=== PATIENT | male | born 1945 | race Caucasian/White ===

== ENCOUNTER 2017-10-14 16:04 | Inpatient (IN) | payer MEDICARE ==
[2017-10-14 16:52] LABS: HEMATOCRIT 43.8 % (42.0-52.0); HEMOGLOBIN 14.5 gm/dl (14.0-18.0); MEAN CELL VOLUME 87.8 fl (81-97); MEAN CORPUSCULAR HEMOGLOBIN 29.1 pg (27-33); MEAN CORPUSCULAR HGB CONC 33.1 g/dl (32-36); MEAN PLATELET VOLUME 10.4 fl (7.4-10.4); PLATELET COUNT 297 K/uL (130-400); RED BLOOD COUNT 4.99 M/uL (4.40-5.70); RED CELL DISTRIBUTION WIDTH 13.9 % (11.5-14.5); WHITE BLOOD COUNT W/O DIFF 15.7 K/uL (4.2-12.2)
[2017-10-14 16:59] LABS: CREATININE 1.8 mg/dL (0.7-1.2)
--- NOTE | 2017-10-14 18:30 | Emergency Department Record ---
History of Present Illness - General Chief complaint: Extremity Problem Stated complaint: SORE ON BILATERAL LEGS Time Seen by Provider: 10/14/17 16:24 Source: Patient Mode of Arrival: Wheelchair Limitations: No limitations - History of Present Illness Initial comments: pt was sent here from [facility] because of ulcers on his left leg. pt has had it on both legs but has managed to have improvement of the r leg. pt has been treating it with bag balm. he is diabetic. his ulcers are draining MD Complaint: Extremity pain, Extremity swelling Onset/Timin -: Month(s) Location: Bilateral, Lower Leg History of Same: No Severity scale (1-10): 10 Quality: Burning, Sharp Consistency: Constant Improves with: Nothing Worsens with: Palpation, Walking, Weight bearing Associated Symptoms: Denies other symptoms - Related Data Allergies Allergy/AdvReac Type Severity Reaction Status Date / Time silver sulfadiazine Allergy Unverified 10/14/17 15:04 [facility] Travel Screening - Travel/Exposure Within Last 30 Days Have you traveled within the last 30 days?: No Review of Systems Reviewed: No additional complaints except as noted below Constitutional: Reports: As per HPI, Weakness. Denies: Chills, Fever, Malaise, Night sweats, Weight change Eyes: Reports: As per HPI. Denies: Eye discharge, Eye pain, Photophobia, Vision change ENT: Reports: As per HPI. Denies: Congestion, Dental pain, Ear pain, Epistaxis , Hearing loss, Throat pain Respiratory: Reports: As per HPI. Denies: Cough, Dyspnea, Hemoptysis, Stridor, Wheezes Cardiovascular: Reports: As per HPI. Denies: Arrhythmia, Chest pain, Dyspnea on exertion, Edema, Murmurs, Orthopnea, Palpitations, Paroxysmal nocturnal dyspnea, Rheumatic Fever, Syncope Endocrine: Reports: As per HPI. Denies: Fatigue, Heat or cold intolerance, Polydipsia, Polyuria Gastrointestinal: Reports: As per HPI. Denies: Abdominal pain, Constipation, Diarrhea, Hematemesis, Hematochezia, Melena, Nausea, Vomiting Genitourinary: Reports: As per HPI. Denies: Dysuria, Frequency, Hematuria, Incontinence, Retention, Testicular pain, Testicular mass, Urgency Musculoskeletal: Reports: As per HPI. Denies: Arthralgia, Back pain, Gout, Joint swelling, Myalgia, Neck pain Skin: Reports: As per HPI, Lesions, Rash. Denies: Bruising, Change in color, Change in hair/nails, Pruritus Neurological: Reports: As per HPI. Denies: Abnormal gait, Confusion, Headache, Numbness, Paresthesias, Seizure, Tingling, Tremors, Vertigo, Weakness Psychiatric: Reports: As per HPI. Denies: Anxiety, Auditory hallucinations, Depression, Homicidal thoughts, Suicidal thoughts, Visual hallucinations Hematological/Lymphatic: Reports: As per HPI. Denies: Anemia, Blood Clots, Easy bleeding, Easy bruising, Swollen glands Past Medical History - SOCIAL HISTORY Smoking Status: Former smoker Alcohol Use: None Drug Use: None - RESPIRATORY Hx Respiratory Disorders: No - CARDIOVASCULAR Hx Cardio Disorders: Yes Hx Heart Attack: Yes (2006) - NEURO Hx Neuro Disorders: No - GI Hx GI Disorders: No - Hx Genitourinary Disorders: Yes Hx Kidney Stones: Yes - ENDOCRINE Hx Endocrine Disorders: Yes Hx Diabetes: Yes (type 2) - MUSCULOSKELETAL Hx Musculoskeletal Disorders: No - PSYCH Hx Psych Problems: No - HEMATOLOGY/ONCOLOGY Hx Hematology/Oncology Disorders: No Family Medical History Any Significant Family History?: No Physical Exam - General General Appearance: Alert, Oriented x3, Cooperative, Mild distress - Head Head exam: Normal inspection - Eye Eye exam: Normal appearance, PERRL, EOMI Pupils: Normal accommodation - ENT ENT exam: Normal exam, Mucous membranes moist, Normal external ear exam, Normal orophraynx Ear exam: Normal external inspection. negative: External canal tenderness Nasal Exam: Normal inspection. negative: Discharge, Sinus tenderness Mouth exam: Normal external inspection, Tongue normal Teeth exam: Normal inspection. negative: Dental caries Throat exam: Normal inspection. negative: Tonsillar erythema, Tonsillar exudate - Neck Neck exam: Normal inspection, Full ROM. negative: Tenderness - Respiratory Respiratory exam: Normal lung sounds bilaterally. negative: Respiratory distress - Cardiovascular Cardiovascular Exam: Regular rate, Normal rhythm, Normal heart sounds - GI/Abdominal GI/Abdominal exam: Soft, Normal bowel sounds. negative: Tenderness - Rectal Rectal exam: Deferred - exam: Deferred - Extremities Extremities exam: Normal inspection, Full ROM, Normal capillary refill. negative: Tenderness Image of Full Body: 1 - ertythema w small lesions 2 - erythema w circumferential ulcers from the ankle to the midcalf w skin breakdown and oozing - Back Back exam: Reports: Normal inspection, Full ROM. Denies: Muscle spasm, Rash noted, Tenderness - Neurological Neurological exam: Alert, CN II-XII intact, Normal gait, Oriented X3 - Psychiatric Psychiatric exam: Normal affect, Normal mood - Skin Skin exam: Dry, Erythema, Normal color, Rash, Warm Distribution of rash: RLE, LLE Description of rash: Crusting, Discharge, Erythematous, Swelling, Tenderness Course Vital Signs 10/14/17 10/14/17 16:09 17:47 Temperature 98.4 F 98.4 F Pulse Rate [ 64 82 Pulse Ox Probe] Respiratory 24 24 Rate Blood Pressure 104/36 111/51 [Left Arm] Pulse Ox 94 L 98 Medical Decision Making - Lab Data Result diagrams: 10/14/17 16:40 10/14/17 16:40 Lab Results 10/14/17 10/14/17 10/14/17 Range/Units 16:40 16:40 16:40 WBC 15.7 H (4.2-12.2) K/uL RBC 4.99 (4.40-5.70) M/uL Hgb 14.5 (14.0-18.0) gm/dl Hct 43.8 (42.0-52.0) % MCV 87.8 (81-97) fl MCH 29.1 (27-33) pg MCHC 33.1 (32-36) g/dl RDW 13.9 (11.5-14.5) % Plt Count 297 (130-400) K/uL MPV 10.4 (7.4-10.4) fl Neutrophils % 81.0 H (47-80) % Eosinophils % Not Reportable Basophils % Not Reportable Lymphocytes 13.0 L (16-45) % Monocytes 6.0 (0-9) % Sodium 136 (136-145) mmol/L Potassium 4.4 (3.4-4.5) mmol/L Chloride 97 L (98-107) mmol/L Carbon Dioxide 27.0 (22-29) mmol/L Anion Gap 12.0 (7-16) BUN 40 H (8-23) mg/dL Creatinine 1.8 H (0.7-1.2) mg/dL Estimated GFR 40 mL/min Random Glucose 122 H (74-109) mg/dL Calcium 10.5 H (8.8-10.2) mg/dL NT-Pro-B Natriuret Pep 1154.00 H (<125) pg/mL Disposition Disposition: Admit Clinical Impression: Diabetic ulcer of lower leg, Renal insufficiency Disposition: Still a Patient at [facility] Decision to Admit: Admit from ER Decision to Admit Date: 10/14/17 Decision to Admit Time: 18:43 Forms: Patient Portal Access Quality - Quality Measures Quality Measures: N/A - Blood Pressure Screening Does Patient Have Any of the Following: No Blood Pressure Classification: Normal BP Reading Systolic Measurement: 111 Diastolic Measurement: 51 Screening for High Blood Pressure: < Normal BP, F/U Not Required > [[id number]]
[2017-10-14] MEDS ORDERED: CLINDAMYCIN 600MG/50ML PREMIX 600 MG/50 ML BAG IVPB ONE (18:37)
[2017-10-14] MEDS ORDERED: ASPIRIN 81 MG CHEWABLE TABLET PO SCH (19:37)
[2017-10-14] MEDS: CLINDAMYCIN 600MG/50ML PREMIX 600 MG/50 ML BAG IVPB SCH (20:01)
[2017-10-14] MEDS: ACETAMINOPHEN 500 MG TABLET PO PRN (20:46)
[2017-10-14] MEDS ORDERED: METFORMIN 500 MG TABLET PO SCH (22:00)
[2017-10-14] MEDS: HYDROCODONE/APAP 7.5/325MG TABLET PO PRN (22:17)
[2017-10-15] MEDS: CLINDAMYCIN 600MG/50ML PREMIX 600 MG/50 ML BAG IVPB SCH ×3 (03:06→21:11)
[2017-10-15] MEDS: HYDROCODONE/APAP 7.5/325MG TABLET PO PRN ×4 (06:13→22:03)
--- NOTE | 2017-10-15 08:55 | History & Physical ---
History of Present Illness - Date of Service Date of Service for History & Physical: 10/15/17 - History of Present Illness Admitting Diagnosis: diabetic ulcers left leg, renal insufficiency History of Present Illness: Mr. Deleon is a 71 y/o male with diabetes mellitus II who presented to the [facility] with bilateral leg ulcers. The patient says that he has been treating the wounds with bag bomb for the past two months. The patient states that his wound on the right leg was the first one to develop and he tried washing it with soap and water daily which helped but then it got worse. He then noticed that he had a left foot wound which was painful and began weeping fluid about 3 weeks ago. He says that he's painful in both legs and that they have an odor. He says that his glucose is controlled on Metformin at home and he's not seen his PCP in 3 months. On admission the patient's labs showed a mild elevation in white count and xray of the legs showed soft tissue swelling but no evidence of osteomeylitis. He is admitted for IV antibiotics and wound care. Travel Screening - Travel/Exposure Within Last 30 Days Have you traveled within the last 30 days?: No - Travel/Exposure Within Last Year Have you traveled outside the [place] in the last year?: No - Additonal Travel Details Have you been exposed to anyone with a communicable illness?: No - Travel Symptoms Symptom Screening: None Review of Systems Constitutional: Reports: As per HPI, Weakness. Denies: Chills, Fever, Malaise, Night sweats, Weight change Eyes: Reports: As per HPI. Denies: Eye discharge, Eye pain, Photophobia, Vision change ENT: Reports: As per HPI. Denies: Congestion, Dental pain, Ear pain, Epistaxis , Hearing loss, Throat pain Respiratory: Reports: As per HPI. Denies: Cough, Dyspnea, Hemoptysis, Stridor, Wheezes Cardiovascular: Reports: As per HPI. Denies: Arrhythmia, Chest pain, Dyspnea on exertion, Edema, Murmurs, Orthopnea, Palpitations, Paroxysmal nocturnal dyspnea, Rheumatic Fever, Syncope Endocrine: Reports: As per HPI. Denies: Fatigue, Heat or cold intolerance, Polydipsia, Polyuria Gastrointestinal: Reports: As per HPI. Denies: Abdominal pain, Constipation, Diarrhea, Hematemesis, Hematochezia, Melena, Nausea, Vomiting Genitourinary: Reports: As per HPI. Denies: Dysuria, Frequency, Hematuria, Incontinence, Retention, Testicular pain, Testicular mass, Urgency Musculoskeletal: Reports: As per HPI. Denies: Arthralgia, Back pain, Gout, Joint swelling, Myalgia, Neck pain Skin: Reports: As per HPI, Lesions, Rash. Denies: Bruising, Change in color, Change in hair/nails, Pruritus Neurological: Reports: As per HPI. Denies: Abnormal gait, Confusion, Headache, Numbness, Paresthesias, Seizure, Tingling, Tremors, Vertigo, Weakness Psychiatric: Reports: As per HPI. Denies: Anxiety, Auditory hallucinations, Depression, Homicidal thoughts, Suicidal thoughts, Visual hallucinations Hematological/Lymphatic: Reports: As per HPI. Denies: Anemia, Blood Clots, Easy bleeding, Easy bruising, Swollen glands Past Medical History - SOCIAL HISTORY Smoking Status: Former smoker Alcohol Use: None Drug Use: None - RESPIRATORY Hx Respiratory Disorders: No - CARDIOVASCULAR Hx Cardio Disorders: Yes Hx Heart Attack: Yes (2006) - NEURO Hx Neuro Disorders: No - GI Hx GI Disorders: No - Hx Genitourinary Disorders: Yes Hx Kidney Stones: Yes - ENDOCRINE Hx Endocrine Disorders: Yes Hx Diabetes: Yes (type 2) - MUSCULOSKELETAL Hx Musculoskeletal Disorders: No - PSYCH Hx Psych Problems: No - HEMATOLOGY/ONCOLOGY Hx Hematology/Oncology Disorders: No Family Medical History Any Significant Family History?: No H&P Meds/Allergies - Allergies Allergies: Allergies Allergy/AdvReac Type Severity Reaction Status Date / Time silver sulfadiazine Allergy Unverified 10/14/17 15:04 [facility] - Active Medications Active Medications: Current Medications Acetaminophen (Tylenol 500mg Tab) 1,000 mg PO Q6H PRN PRN Reason: PAIN - MILD(1-4)/FEVER Last Admin: 10/14/17 20:46 Dose: 1,000 mg Hydrocodone Bitart/Acetaminophen (Berkshire 7.5mg/325mg) 1 each PO Q4H PRN PRN Reason: PAIN - MILD TO MODERATE (1-7) Last Admin: 10/15/17 06:13 Dose: 1 each Aspirin (Aspirin Chewable) 81 mg PO NOW [facility] Carvedilol (Coreg) 6.25 mg PO DAILY [facility] Furosemide (Lasix) 20 mg PO DAILY [place] Clindamycin Phosphate (Cleocin 600 [id number]) 600 mg in 50 mls @ 100 mls/ hr IVPB Q8H [facility] Last Infusion: 10/15/17 03:39 Dose: Infused Lisinopril (Zestril) 10 mg PO DAILY [facility] Metformin HCl (Glucophage Ir) 500 mg PO BID [facility] Last Admin: 10/14/17 22:18 Dose: Not Given Nystatin (Nystop) 60 gm TP DAILY [facility] Simvastatin (Zocor) 10 mg PO DAILY [facility] Tamsulosin HCl (Flomax) 0.4 mg PO DAILY [facility] Physical Exam - Vital Signs Vital Signs: Vital Signs - Last 24 Hrs Temp Pulse Resp BP Pulse Ox 10/15/17 05:00 99.2 F 80 22 104/47 98 10/14/17 21:00 22 10/14/17 19:35 99.3 F 106 H 24 123/60 95 10/14/17 19:30 78 24 92/66 97 10/14/17 17:47 98.4 F 82 24 111/51 98 10/14/17 16:09 98.4 F 64 24 104/36 94 L - General General Appearance: Alert, Oriented x3, Cooperative, Mild distress Limitations: No limitations - Head Head exam: Normal inspection - Eye Eye exam: Normal appearance, PERRL, EOMI Pupils: Normal accommodation - ENT ENT exam: Normal exam, Mucous membranes moist, Normal external ear exam, Normal orophraynx Ear exam: Normal external inspection. negative: External canal tenderness Nasal Exam: Normal inspection. negative: Discharge, Sinus tenderness Mouth exam: Normal external inspection, Tongue normal Teeth exam: Normal inspection. negative: Dental caries Throat exam: Normal inspection. negative: Tonsillar erythema, Tonsillar exudate - Neck Neck exam: Normal inspection, Full ROM. negative: Tenderness - Respiratory Respiratory exam: Normal lung sounds bilaterally. negative: Respiratory distress - Cardiovascular Cardiovascular Exam: Regular rate, Normal rhythm, Normal heart sounds - GI/Abdominal GI/Abdominal exam: Soft, Normal bowel sounds. negative: Tenderness - Rectal Rectal exam: Deferred - exam: Deferred - Extremities Extremities exam: Normal inspection, Full ROM, Normal capillary refill, Other ( both Left/Right kennedy ulcerative lesions with yellow drainage on the left, dressing in place.). negative: Tenderness Image of Feet: 1 - ulceration and discharge 2 - ulcerative lesion with discharge. - Back Back exam: Reports: Normal inspection, Full ROM. Denies: Muscle spasm, Rash noted, Tenderness - Neurological Neurological exam: Alert, CN II-XII intact, Normal gait, Oriented X3 - Psychiatric Psychiatric exam: Normal affect, Normal mood - Skin Skin exam: Dry, Erythema, Normal color, Rash, Warm Distribution of rash: RLE, LLE Description of rash: Crusting, Discharge, Erythematous, Swelling, Tenderness Results - Labs Result Diagrams: 10/14/17 16:40 10/14/17 16:40 Labs Last 24 Hours: Laboratory Results - last 24 hr 10/14/17 10/14/17 10/14/17 16:40 16:40 16:40 WBC 15.7 H RBC 4.99 Hgb 14.5 Hct 43.8 MCV 87.8 MCH 29.1 MCHC 33.1 RDW 13.9 Plt Count 297 MPV 10.4 Neutrophils % 81.0 H Eosinophils % Not Reportable Basophils % Not Reportable Lymphocytes 13.0 L Monocytes 6.0 Sodium 136 Potassium 4.4 Chloride 97 L Carbon Dioxide 27.0 Anion Gap 12.0 BUN 40 H Creatinine 1.8 H Estimated GFR 40 POC Glucose Random Glucose 122 H Calcium 10.5 H NT-Pro-B Natriuret Pep 1154.00 H 10/14/17 10/14/17 10/15/17 22:00 22:00 07:41 WBC RBC Hgb Hct MCV MCH MCHC RDW Plt Count MPV Neutrophils % Eosinophils % Basophils % Lymphocytes Monocytes Sodium Potassium Chloride Carbon Dioxide Anion Gap BUN Creatinine Estimated GFR POC Glucose Cancelled 159 H 144 H Random Glucose Calcium NT-Pro-B Natriuret Pep VTE H&P Assessment - Risk for VTE Risk for VTE: Yes Risk Level: High Risk Assessment Date: 10/15/17 Risk Assessment Time: 10:07 VTE Orders Placed or Will Be Placed: Yes Plan - Inpatient Certification Inpatient Certification: Admit to inpatient care: Based on my medical assessment, after consideration of patient's risk factors (age, co-morbidities and patient presenting symptoms and acuity), I expect that this patient will remain in the hospital greater than or equal to two midnights and that the services needed warrant inpatient care because: Diabetic foot ulcers Estimated length of stay: 4 days The patient may reasonably be expected to be discharged or transferred to a hospital within 96 hours after admission to [facility]. Post hospital care (if known): Wound care I certify that my determination is in accordance with my understanding of Medicare requirements for reasonable and necessary inpatient services. - Detailed Diagnosis and Plan (1) Diabetic ulcer of lower leg Current Visit: Yes Status: Acute Base Code: E11.622 - TYPE 2 DIABETES MELLITUS WITH OTHER SKIN ULCER; L97.909 - NON-PRS CHRONIC ULC UNSP PRT OF UNSP LOW LEG W UNSP SEVERITY Comment: 10/15/17: - sloughing ulceration of bilaterel legs extending from mid tib/fib to the plantar foot on the left, right tib/fib healing ulcer w/o discharge. - Clindamycin 600mg IV Q8H, [place] 7.5/325mg PO Q4H PRN - Wound care with wet to dry dressings,or hydrogel dressing, elevation/ offloading. - WBCs 15.7, afebrile, glucose 122, blood cx pending. - May need more aggressive wound treatment with hyperbaric therapy if wound slow to heal. (2) Diabetes mellitus, type II Current Visit: Yes Status: Acute Qualifiers: Diabetes mellitus long term care pharmacist insulin use: without long term care pharmacist use Base Code: E11.9 - TYPE 2 DIABETES MELLITUS WITHOUT COMPLICATIONS Comment: 10/15/17: - random glucose 122, POC 159,144 - on Metformin 500mg BID at home, holding due to renal insufficiency. - repeat BMP, Hba1c, sliding scale insulin ordered, POC AcHS, ADA diet. (3) CKD stage 3 due to type 2 diabetes mellitus Current Visit: Yes Status: Acute Base Code: E11.22 - TYPE 2 DIABETES MELLITUS W DIABETIC CHRONIC KIDNEY DISEASE; N18.3 - CHRONIC KIDNEY DISEASE, STAGE 3 (MODERATE) Comment: 10/15/17: - no baseline Bun/Cr. - EGFR 40 , Bun/Cr 40/1.8 - repeat electrolyte panel, hold metformin. - fluid challenge with 1 liter Nacl 0.9% bolus. (4) DVT prophylaxis Current Visit: Yes Status: Acute Base Code: [id number] - Comment: 10/15/17: - pt high risk of DVT - Lovenox 40 mg sq daily (5) Full code status Current Visit: Yes Status: Acute Base Code: Z78.9 - OTHER SPECIFIED HEALTH STATUS Comment: 10/15/17: FULL CODE - Disposition Guarded. Will require several days of wound care and diabetic control
[2017-10-15] MEDS ORDERED: 0.9 % SODIUM CHLORIDE 1000ML 1,000 ML IV ONE (09:11)
[2017-10-15] MEDS ORDERED: FUROSEMIDE 20 MG TABLET PO SCH (10:00)
[2017-10-15] MEDS ORDERED: LISINOPRIL 10 MG TABLET PO SCH (10:00)
[2017-10-15] MEDS ORDERED: CARVEDILOL 6.25 MG PO SCH (10:00)
[2017-10-15] MEDS: CARVEDILOL 12.5 MG TABLET PO SCH (10:37)
[2017-10-15] MEDS: SIMVASTATIN 10MG TABLET PO SCH (10:37)
[2017-10-15] MEDS: TAMSULOSIN HCL 0.4 MG CAP.ER.24H PO SCH (10:37)
[2017-10-15] MEDS: NYSTATIN 15 GM POWDER TP SCH (10:38)
[2017-10-15] MEDS: ENOXAPARIN 40 MG/0.4 ML SYR SQ SCH (10:45)
[2017-10-15] MEDS: NOVOLOG FLEXPEN (INSULIN ASPART) 100 UNITS/ML SQ SCH ×2 (11:46→12:30)
[2017-10-15] MEDS: ACETAMINOPHEN 500 MG TABLET PO PRN (15:28)
[2017-10-16] MEDS: CLINDAMYCIN 600MG/50ML PREMIX 600 MG/50 ML BAG IVPB SCH ×3 (04:20→21:30)
[2017-10-16 06:22] LABS: HEMATOCRIT 36.7 % (42.0-52.0); HEMOGLOBIN 11.4 gm/dl (14.0-18.0); MEAN CELL VOLUME 90.4 fl (81-97); MEAN CORPUSCULAR HGB CONC 31.1 g/dl (32-36); MEAN PLATELET VOLUME 10.4 fl (7.4-10.4); PLATELET COUNT 210 K/uL (130-400); RED BLOOD COUNT 4.06 M/uL (4.40-5.70); WHITE BLOOD COUNT W/O DIFF 13.5 K/uL (4.2-12.2)
[2017-10-16 06:41] LABS: CREATININE 2.6 mg/dL (0.7-1.2)
[2017-10-16] MEDS: HYDROCODONE/APAP 7.5/325MG TABLET PO PRN (08:32)
[2017-10-16] MEDS: ACETAMINOPHEN 500 MG TABLET PO PRN (08:33)
[2017-10-16] MEDS: NOVOLOG FLEXPEN (INSULIN ASPART) 100 UNITS/ML SQ SCH ×3 (08:44→17:48)
[2017-10-16] MEDS ORDERED: 0.9 % SODIUM CHLORIDE 1000ML 1,000 ML IV ONE (08:49)
--- NOTE | 2017-10-16 09:05 | Physician Progress Note ---
Subjective - Date Date of Physician Progress Note: 10/16/17 - Subjective Subjective Comment: The patient says his left leg is more painful this morning. He says it has been draining profusely but feels like it hasn't changed much. He is alert, awake and oriented x 3. Severity scale (1-10): 7 Quality: Aching Consistency: Constant Objective - Vital Signs Vital Signs: Vital Signs - Last 24 Hrs Temp Pulse Resp BP Pulse Ox 10/16/17 08:15 100.2 F H 88 20 87/51 94 L 10/16/17 05:00 99.5 F 87 22 86/49 95 10/15/17 21:00 99.3 F 76 22 86/49 95 10/15/17 20:35 82 20 10/15/17 13:00 98.4 F 80 20 107/63 98 10/15/17 09:00 80 22 - General General Appearance: Alert, Oriented x3, Cooperative, Mild distress Limitations: No limitations - Head Head exam: Normal inspection - Eye Eye exam: Normal appearance, PERRL, EOMI Pupils: Normal accommodation - ENT ENT exam: Normal exam, Mucous membranes moist, Normal external ear exam, Normal orophraynx Ear exam: Normal external inspection. negative: External canal tenderness Nasal Exam: Normal inspection. negative: Discharge, Sinus tenderness Mouth exam: Normal external inspection, Tongue normal Teeth exam: Normal inspection. negative: Dental caries Throat exam: Normal inspection. negative: Tonsillar erythema, Tonsillar exudate - Neck Neck exam: Normal inspection, Full ROM. negative: Tenderness - Respiratory Respiratory exam: Normal lung sounds bilaterally. negative: Respiratory distress - Cardiovascular Cardiovascular Exam: Regular rate, Normal rhythm, Normal heart sounds Peripheral Pulses: 3+: Radial (R), Radial (L) - GI/Abdominal GI/Abdominal exam: Soft, Normal bowel sounds. negative: Tenderness - Rectal Rectal exam: Deferred - exam: Deferred - Extremities Extremities exam: Normal inspection, Full ROM, Normal capillary refill, Other ( both Left/Right kennedy ulcerative lesions with yellow drainage on the left, dressing in place. Left leg wound is curcumfrential). negative: Tenderness - Back Back exam: Reports: Normal inspection, Full ROM. Denies: Muscle spasm, Rash noted, Tenderness - Neurological Neurological exam: Alert, CN II-XII intact, Normal gait, Oriented X3 - Psychiatric Psychiatric exam: Normal affect, Normal mood - Skin Skin exam: Dry, Erythema, Normal color, Rash, Warm Distribution of rash: RLE, LLE Description of rash: Crusting, Discharge, Erythematous, Swelling, Tenderness Assessment and Plan - Assessment and Plan (1) Hypotension Current Visit: Yes Status: Acute Base Code: I95.9 - HYPOTENSION, UNSPECIFIED Comment: 10/16/17: - BP 87/51, HR 88 - hold Coreg, Lasix and Lisinopril. - bolus 0.9% over 1 hour, continuous fluids @ 100mL/hr (2) Diabetic ulcer of lower leg Current Visit: Yes Status: Acute Base Code: E11.622 - TYPE 2 DIABETES MELLITUS WITH OTHER SKIN ULCER; L97.909 - NON-PRS CHRONIC ULC UNSP PRT OF UNSP LOW LEG W UNSP SEVERITY Comment: 10/16/17: - sloughing ulceration of bilaterel legs extending from mid tib/fib to the plantar foot on the left, right tib/fib healing ulcer w/o discharge. - Clindamycin 600mg IV Q8H Cipro 400mg IV Q12H, [place] 10/325mg PO Q4H PRN - Wound care with wet to dry dressings,or hydrogel dressing, elevation/ offloading. - WBCs 15.7-->13.5, febrile 100.2, glucose 134, blood cx pending. - May need more aggressive wound treatment with hyperbaric therapy if wound slow to heal. (3) Diabetes mellitus, type II Current Visit: Yes Status: Acute Qualifiers: Diabetes mellitus superintendent marine oil terminal insulin use: without [place] [facility] use Base Code: E11.9 - TYPE 2 DIABETES MELLITUS WITHOUT COMPLICATIONS Comment: 10/16/17: - random glucose 134, - on Metformin 500mg BID at home, holding due to renal insufficiency. - repeat BMP, Hba1c, sliding scale insulin ordered, POC AcHS, ADA diet. (4) CKD stage 3 due to type 2 diabetes mellitus Current Visit: Yes Status: Acute Base Code: E11.22 - TYPE 2 DIABETES MELLITUS W DIABETIC CHRONIC KIDNEY DISEASE; N18.3 - CHRONIC KIDNEY DISEASE, STAGE 3 (MODERATE) Comment: 10/16/17: - no baseline Bun/Cr. - EGFR 40 , Bun/Cr 40/1.8 --> 61/2.6 - repeat electrolyte panel, hold metformin, and Lasix 20mg. - bolus 1 liter Nacl 0.9% and continuous fluids: Nacl 0.9% @ 100mL/hr - repeat BMP at 5pm and in the morning. (5) DVT prophylaxis Current Visit: Yes Status: Acute Base Code: [id number] - Comment: 10/16/17: - pt high risk of DVT - Lovenox 40 mg sq daily (6) Full code status Current Visit: Yes Status: Acute Base Code: Z78.9 - OTHER SPECIFIED HEALTH STATUS Comment: 10/16/17: FULL CODE - Disposition Disposition: Guarded. Will require several days of wound care and diabetic control Results - Labs Result Diagrams: 10/16/17 06:05 10/16/17 06:05 Labs Last 24 Hours: Laboratory Results - last 24 hr 10/15/17 10/16/17 10/16/17 21:30 06:05 06:05 WBC 13.5 H RBC 4.06 L Hgb 11.4 L Hct 36.7 L MCV 90.4 MCH 28.0 MCHC 31.1 L RDW 14.0 Plt Count 210 MPV 10.4 Neutrophils % 76.0 Band Neutrophils % 0.0 Eosinophils % Not Reportable Basophils % Not Reportable Lymphocytes 12.0 L Monocytes 12.0 H Basophils 0.0 Eosinophil Count 0.0 Sodium 134 L Potassium 4.3 Chloride 96 L Carbon Dioxide 24.0 Anion Gap 14.0 BUN 61 H Creatinine 2.6 H Estimated GFR 26 POC Glucose 144 H Random Glucose 134 H Hemoglobin A1c Calcium 8.9 Triglycerides 72 Cholesterol 78 LDL Cholesterol [place] 36.0 VLDL Cholesterol 14 HDL Cholesterol 38 L 10/16/17 06:05 WBC RBC Hgb Hct MCV MCH MCHC RDW Plt Count MPV Neutrophils % Band Neutrophils % Eosinophils % Basophils % Lymphocytes Monocytes Basophils Eosinophil Count Sodium Potassium Chloride Carbon Dioxide Anion Gap BUN Creatinine Estimated GFR POC Glucose Random Glucose Hemoglobin A1c 7.40 H Calcium Triglycerides Cholesterol LDL Cholesterol [place] VLDL Cholesterol HDL Cholesterol DVT/PE Assessment - Risk for VTE Risk for VTE: No Risk Level: High Risk Assessment Date: 10/15/17 Risk Assessment Time: 10:07 VTE Orders Placed or Will Be Placed: Yes - Active Medicaitons Current Medications: Current Medications Acetaminophen (Tylenol 500mg Tab) 1,000 mg PO Q6H PRN PRN Reason: PAIN - MILD(1-4)/FEVER Last Admin: 10/16/17 08:33 Dose: 500 mg Hydrocodone Bitart/Acetaminophen ([place] 7.5mg/325mg) 1 each PO Q4H PRN PRN Reason: PAIN - MILD TO MODERATE (1-7) Last Admin: 10/16/17 08:32 Dose: 1 each Aspirin (Aspirin Chewable) 81 mg PO NOW [facility] Carvedilol (Coreg) 6.25 mg PO DAILY [facility] Last Admin: 10/15/17 10:37 Dose: 6.25 mg Enoxaparin Sodium (Lovenox) 40 mg SQ DAILY [facility] Last Admin: 10/15/17 10:45 Dose: 40 mg Furosemide (Lasix) 20 mg PO DAILY [facility] Last Admin: 10/15/17 10:36 Dose: 20 mg Clindamycin Phosphate (Cleocin 600 [id number]) 600 mg in 50 mls @ 100 mls/ hr IVPB Q8H [facility] Last Admin: 10/16/17 04:20 Dose: 100 mls/hr Sodium Chloride () 1,000 mls @ 500 mls/hr IV .Q2H ONE Stop: 10/16/17 10:48 Insulin Aspart (Novolog Flexpen) 1 unit SQ TIDINS [facility]; Protocol Last Admin: 10/16/17 08:44 Dose: 4 unit Lisinopril (Zestril) 10 mg PO DAILY [facility] Last Admin: 10/15/17 10:36 Dose: 10 mg Nystatin (Nystop) 60 gm TP DAILY [facility] Last Admin: 10/15/17 10:38 Dose: 60 gm Simvastatin (Zocor) 10 mg PO DAILY [facility] Last Admin: 10/15/17 10:37 Dose: 10 mg Tamsulosin HCl (Flomax) 0.4 mg PO DAILY [facility] Last Admin: 10/15/17 10:37 Dose: 0.4 mg AMI Plan - Labs Result Diagrams: 10/16/17 06:05 10/16/17 06:05
--- NOTE | 2017-10-16 10:08 | RADIOLOGY REPORT ---
EXAM: LOWER LEG, LEFT HISTORY: SWELLING AND REDNESS LEFT LEG, INFECTION. TECHNIQUE: AP and lateral views of the left lower leg. COMPARISON: None. ENCOUNTER: Nonapplicable. FINDINGS: There is mild to moderate degenerative arthritis at the left knee. Soft tissue swelling is seen along the anterior aspect of the calf. No definite fracture or destructive lesion seen involving the left lower leg. IMPRESSION: 1. DEGENERATIVE ARTHRITIS LEFT KNEE. 2. SOFT TISSUE SWELLING IN THE CALF, PARTICULARLY ANTERIORLY. 3. NO DESTRUCTIVE LESION OF THE LEFT LOWER LEG IDENTIFIED. JOB [facility]BER: [id number] [facility]
--- NOTE | 2017-10-16 10:12 | RADIOLOGY REPORT ---
EXAM: FOOT, LEFT 2 VIEWS HISTORY: INFECTION, REDNESS AND SWELLING LEFT LEG INTO FOOT FOR TWO MONTHS. TECHNIQUE: AP and lateral views left foot. COMPARISON: None. FINDINGS: Diffuse soft tissue swelling is seen, particularly along the dorsal aspect of the left foot. Advanced degenerative change at the first MTP joint. Second through fifth toes are held in relative dorsiflexion at the MTP joints. Small plantar calcaneal spur. No definite destructive lesion seen in the left foot. IMPRESSION: 1. ADVANCED DEGENERATIVE CHANGE AT THE FIRST MTP JOINT. 2. SMALL PLANTAR CALCANEAL SPUR. 3. PROMINENT SOFT TISSUE SWELLING IN THE LEFT FOOT, PARTICULARLY ALONG THE DORSAL ASPECT. JOB NUMBER: [id number] [facility]
[2017-10-16] MEDS ORDERED: CIPROFLOXACIN LACTATE/D5W 400 MG/200 ML BAG IVPB SCH (10:45)
[2017-10-16] MEDS: HYDROCODONE/APAP 10/325 TABLET PO PRN ×2 (10:58→17:50)
[2017-10-16] MEDS: ENOXAPARIN 40 MG/0.4 ML SYR SQ SCH (11:28)
[2017-10-16] MEDS: TAMSULOSIN HCL 0.4 MG CAP.ER.24H PO SCH (11:29)
[2017-10-16] MEDS: SIMVASTATIN 10MG TABLET PO SCH (11:29)
[2017-10-16] MEDS: CIPROFLOXACIN LACTATE/D5W 400 MG/200 ML BAG IVPB SCH ×2 (11:30→22:35)
[2017-10-16] MEDS: NYSTATIN 15 GM POWDER TP SCH (11:40)
[2017-10-16 17:23] LABS: CREATININE 2.6 mg/dL (0.7-1.2)
[2017-10-17] MEDS: CLINDAMYCIN 600MG/50ML PREMIX 600 MG/50 ML BAG IVPB SCH ×2 (03:50→14:06)
[2017-10-17] MEDS: HYDROCODONE/APAP 10/325 TABLET PO PRN ×3 (03:50→16:02)
[2017-10-17 07:17] LABS: HEMATOCRIT 37.5 % (42.0-52.0); MEAN CELL VOLUME 89.5 fl (81-97); MEAN CORPUSCULAR HEMOGLOBIN 28.6 pg (27-33); MEAN PLATELET VOLUME 11.1 fl (7.4-10.4); PLATELET COUNT 214 K/uL (130-400); RED BLOOD COUNT 4.19 M/uL (4.40-5.70); WHITE BLOOD COUNT W/O DIFF 13.3 K/uL (4.2-12.2)
[2017-10-17 07:36] LABS: CREATININE 2.2 mg/dL (0.7-1.2)
[2017-10-17 07:53] LABS: PLATELET ESTIMATE NORMAL (NORMAL)
[2017-10-17] MEDS: NOVOLOG FLEXPEN (INSULIN ASPART) 100 UNITS/ML SQ SCH ×2 (09:27→14:08)
[2017-10-17] MEDS: ENOXAPARIN 40 MG/0.4 ML SYR SQ SCH (10:50)
[2017-10-17] MEDS: CARVEDILOL 12.5 MG TABLET PO SCH ×2 (10:51→11:05)
[2017-10-17] MEDS: TAMSULOSIN HCL 0.4 MG CAP.ER.24H PO SCH (10:53)
[2017-10-17] MEDS: NYSTATIN 15 GM POWDER TP SCH (10:55)
[2017-10-17] MEDS: SIMVASTATIN 10MG TABLET PO SCH (10:55)
--- NOTE | 2017-10-17 10:58 | Discharge Summary ---
Providers Discharge Summary Date: 10/17/17 Date of admission: 10/14/17 19:32 Attending physician: LISETTE THOMSON Primary care physician: Halima Cervantes Consults: Consult Orders 10/17/17 06:55 Consult NOW Consulting Provider: Zaki Castaneda Physician Instructions: Reason For Exam: DM ulcer debridement Physical Exam - Vital Signs Vital Signs: Vital Signs - Last 24 Hrs Temp Pulse Resp BP Pulse Ox 10/17/17 04:23 98.6 F 80 20 86/62 96 10/16/17 21:00 20 10/16/17 20:00 99.0 F 84 22 100/55 96 10/16/17 16:00 99.0 F 85 20 91/56 95 - General General Appearance: Alert, Oriented x3, Cooperative, Mild distress Limitations: No limitations - Head Head exam: Normal inspection - Eye Eye exam: Normal appearance, PERRL, EOMI Pupils: Normal accommodation - ENT ENT exam: Normal exam, Mucous membranes moist, Normal external ear exam, Normal orophraynx Ear exam: Normal external inspection. negative: External canal tenderness Nasal Exam: Normal inspection. negative: Discharge, Sinus tenderness Mouth exam: Normal external inspection, Tongue normal Teeth exam: Normal inspection. negative: Dental caries Throat exam: Normal inspection. negative: Tonsillar erythema, Tonsillar exudate - Neck Neck exam: Normal inspection, Full ROM. negative: Tenderness - Respiratory Respiratory exam: Normal lung sounds bilaterally. negative: Respiratory distress - Cardiovascular Cardiovascular Exam: Regular rate, Normal rhythm, Normal heart sounds Peripheral Pulses: 3+: Radial (R), Radial (L) - GI/Abdominal GI/Abdominal exam: Soft, Normal bowel sounds. negative: Tenderness - Rectal Rectal exam: Deferred - exam: Deferred - Extremities Extremities exam: Normal inspection, Full ROM, Normal capillary refill, Other ( both Left/Right kennedy ulcerative lesions with yellow drainage on the left, dressing in place. Left leg wound is curcumfrential). negative: Tenderness - Back Back exam: Reports: Normal inspection, Full ROM. Denies: Muscle spasm, Rash noted, Tenderness - Neurological Neurological exam: Alert, CN II-XII intact, Normal gait, Oriented X3 - Psychiatric Psychiatric exam: Normal affect, Normal mood - Skin Skin exam: Dry, Erythema, Normal color, Rash, Warm Distribution of rash: RLE, LLE Description of rash: Crusting, Discharge, Erythematous, Swelling, Tenderness Hospitalization - Hospitalization Admission Diagnosis: diabetic ulcers left leg, renal insufficiency - Problem List/Discharge Diagnosis (1) Hypotension Current Visit: Yes Status: Acute Base Code: I95.9 - HYPOTENSION, UNSPECIFIED Comment: 10/17/17: - BP 86/62, HR 80 - hold Coreg, Lasix and Lisinopril. - bolused 1 liter nacl 0.9%, continuous fluids @ 100mL/hr (2) Diabetic ulcer of lower leg Current Visit: Yes Status: Acute Base Code: E11.622 - TYPE 2 DIABETES MELLITUS WITH OTHER SKIN ULCER; L97.909 - NON-PRS CHRONIC ULC UNSP PRT OF UNSP LOW LEG W UNSP SEVERITY Comment: 10/17/17: - sloughing ulceration of bilaterel legs extending from mid tib/fib to the plantar foot on the left, right tib/fib healing ulcer w/o discharge. - Clindamycin 600mg IV Q8H Cipro 400mg IV Q12H, [place] 10/325mg PO Q4H PRN - Wound care with wet to dry dressings,or hydrogel dressing, elevation/ offloading. - WBCs 15.7-->13.5, febrile 100.2, glucose 134, blood cx: gram + cocci in chains , wound cx: mod gram negative rods. - May need more aggressive wound treatment with hyperbaric therapy if wound slow to heal. discussed with Gen Surg this morning and recommended debridement of wound and transfer to [facility] for multidisciplinary wound care management. 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 Hba1c 7.4% - on Metformin 500mg BID at home, holding due to renal insufficiency. -, sliding scale insulin ordered, POC AcHS, ADA diet. (4) CKD stage 3 due to type 2 diabetes mellitus Current Visit: Yes Status: Acute Base Code: E11.22 - TYPE 2 DIABETES MELLITUS W DIABETIC CHRONIC KIDNEY DISEASE; N18.3 - CHRONIC KIDNEY DISEASE, STAGE 3 (MODERATE) Comment: 10/17/17: - no baseline Bun/Cr. - EGFR 40 , Bun/Cr 40/1.8 --> 61/2.6 --> 58/2.2 - repeat electrolyte panel, hold metformin, and Lasix 20mg. - bolus 1 liter Nacl 0.9% and continuous fluids: Nacl 0.9% @ 100mL/hr (5) DVT prophylaxis Current Visit: Yes Status: Acute Base Code: [id number] - Comment: 10/17/17: - pt high risk of DVT - Lovenox 40 mg sq daily (6) Full code status Current Visit: Yes Status: Acute Base Code: Z78.9 - OTHER SPECIFIED HEALTH STATUS Comment: 10/17/17: FULL CODE - Disposition Guarded. Will require several days of wound care and diabetic control - Hospitalization Course Disposition: Acute Care Hospital Transfer Hospital Course: Mr. Deleon is a 71 y/o male with diabetes mellitus II who presented to the [facility] with bilateral leg ulcers. The patient says that he has been treating the wounds with "Bag Leona" ointment for the past two months. The patient states that his wound on the right leg was the first one to develop and he tried washing it with soap and water daily which helped but then it got worse. He then noticed that he had a left foot wound which was painful and began weeping fluid about 3 weeks ago. He says that he's painful in both legs and that they have an odor. He says that his glucose is controlled on Metformin at home and he 's not seen his PCP in 3 months. On admission the patient's labs showed a mild elevation in white count and xray of the legs showed soft tissue swelling but no evidence of osteomeylitis. He is admitted for IV antibiotics and wound care. 10/17: The patient is awake and alert complaining of leg pain bilaterally with movement. On 10/16/17 the patient became febrile with temp 100.8, and hypotensive. Blood cultures grew gram + cocci in chains and wound culture moderate gram (-) rods. Ciprofloxacin 400mg BID was added to his Clindamycin 600mg Q8H for aerobic gram negative coverage. Coverage with Vancomycin not given due to worsening kidney function. Surgery was consulted for debridement of the wound and recommended transfer for debridement and multidisciplinary wound care. Procedures: Imaging and X-Rays 10/14/17 16:32 FOOT, LEFT 2 VIEWS [RAD] Stat LOWER LEG, LEFT [RAD] Stat Abnormal Labs: Abnormal Lab Results 10/14/17 10/14/17 10/14/17 Range/Units 16:40 16:40 16:40 WBC 15.7 H (4.2-12.2) K/uL RBC (4.40-5.70) M/uL Hgb (14.0-18.0) gm/dl Hct (42.0-52.0) % MCHC (32-36) g/dl MPV (7.4-10.4) fl Neutrophils % 81.0 H (47-80) % Lymphocytes 13.0 L (16-45) % Monocytes (0-9) % Sodium (136-145) mmol/L Potassium (3.4-4.5) mmol/L Chloride 97 L (98-107) mmol/L Carbon Dioxide (22-29) mmol/L Anion Gap (7-16) BUN 40 H (8-23) mg/dL Creatinine 1.8 H (0.7-1.2) mg/dL POC Glucose (70-110) mg/dL Random Glucose 122 H (74-109) mg/dL Hemoglobin A1c (4.0-6.00) % Calcium 10.5 H (8.8-10.2) mg/dL NT-Pro-B Natriuret Pep 1154.00 H (<125) pg/mL HDL Cholesterol (40-60) mg/dL 10/14/17 10/15/17 10/15/17 Range/Units 22:00 07:41 21:30 WBC (4.2-12.2) K/uL RBC (4.40-5.70) M/uL Hgb (14.0-18.0) gm/dl Hct (42.0-52.0) % MCHC (32-36) g/dl MPV (7.4-10.4) fl Neutrophils % (47-80) % Lymphocytes (16-45) % Monocytes (0-9) % Sodium (136-145) mmol/L Potassium (3.4-4.5) mmol/L Chloride (98-107) mmol/L Carbon Dioxide (22-29) mmol/L Anion Gap (7-16) BUN (8-23) mg/dL Creatinine (0.7-1.2) mg/dL POC Glucose 159 H 144 H 144 H (70-110) mg/dL Random Glucose (74-109) mg/dL Hemoglobin A1c (4.0-6.00) % Calcium (8.8-10.2) mg/dL NT-Pro-B Natriuret Pep (<125) pg/mL HDL Cholesterol (40-60) mg/dL 10/16/17 10/16/17 10/16/17 Range/Units 06:05 06:05 06:05 WBC 13.5 H (4.2-12.2) K/uL RBC 4.06 L (4.40-5.70) M/uL Hgb 11.4 L (14.0-18.0) gm/dl Hct 36.7 L (42.0-52.0) % MCHC 31.1 L (32-36) g/dl MPV (7.4-10.4) fl Neutrophils % (47-80) % Lymphocytes 12.0 L (16-45) % Monocytes 12.0 H (0-9) % Sodium 134 L (136-145) mmol/L Potassium (3.4-4.5) mmol/L Chloride 96 L (98-107) mmol/L Carbon Dioxide (22-29) mmol/L Anion Gap (7-16) BUN 61 H (8-23) mg/dL Creatinine 2.6 H (0.7-1.2) mg/dL POC Glucose (70-110) mg/dL Random Glucose 134 H (74-109) mg/dL Hemoglobin A1c 7.40 H (4.0-6.00) % Calcium (8.8-10.2) mg/dL NT-Pro-B Natriuret Pep (<125) pg/mL HDL Cholesterol 38 L (40-60) mg/dL 10/16/17 10/16/17 10/16/17 Range/Units 11:50 17:00 17:00 WBC (4.2-12.2) K/uL RBC (4.40-5.70) M/uL Hgb (14.0-18.0) gm/dl Hct (42.0-52.0) % MCHC (32-36) g/dl MPV (7.4-10.4) fl Neutrophils % (47-80) % Lymphocytes (16-45) % Monocytes (0-9) % Sodium 132 L (136-145) mmol/L Potassium (3.4-4.5) mmol/L Chloride 93 L (98-107) mmol/L Carbon Dioxide (22-29) mmol/L Anion Gap 17.0 H (7-16) BUN 62 H (8-23) mg/dL Creatinine 2.6 H (0.7-1.2) mg/dL POC Glucose 180 H 126 H (70-110) mg/dL Random Glucose 126 H (74-109) mg/dL Hemoglobin A1c (4.0-6.00) % Calcium (8.8-10.2) mg/dL NT-Pro-B Natriuret Pep (<125) pg/mL HDL Cholesterol (40-60) mg/dL 10/16/17 10/17/17 10/17/17 Range/Units 22:00 06:34 06:34 WBC 13.3 H (4.2-12.2) K/uL RBC 4.19 L (4.40-5.70) M/uL Hgb 12.0 L (14.0-18.0) gm/dl Hct 37.5 L (42.0-52.0) % MCHC (32-36) g/dl MPV 11.1 H (7.4-10.4) fl Neutrophils % (47-80) % Lymphocytes 14.0 L (16-45) % Monocytes (0-9) % Sodium 134 L (136-145) mmol/L Potassium 4.6 H (3.4-4.5) mmol/L Chloride (98-107) mmol/L Carbon Dioxide 21.0 L (22-29) mmol/L Anion Gap (7-16) BUN 58 H (8-23) mg/dL Creatinine 2.2 H (0.7-1.2) mg/dL POC Glucose 178 H (70-110) mg/dL Random Glucose 145 H (74-109) mg/dL Hemoglobin A1c (4.0-6.00) % Calcium (8.8-10.2) mg/dL NT-Pro-B Natriuret Pep (<125) pg/mL HDL Cholesterol (40-60) mg/dL Condition at Discharge: (2) Stable Discharge Diagnosis: Diabetic foot ulcers Discharge Medications - Discharge Medications Home Medications: Ambulatory Orders Aspirin 81 mg PO NOW #1 tab.chew 10/14/17 [Last Taken Unknown] Carvedilol 6.25 mg PO DAILY tab 10/14/17 [Last Taken Unknown] Furosemide 20 mg PO DAILY tab 10/14/17 [Last Taken Unknown] Lisinopril 10 mg PO DAILY tab 10/14/17 [Last Taken Unknown] Nystatin [Nyamyc] 60 gm TP DAILY 10/14/17 [Last Taken Unknown] Simvastatin 10 mg PO DAILY tab 10/14/17 [Last Taken Unknown] Tamsulosin HCl 0.4 mg PO DAILY cap 10/14/17 [Last Taken Unknown] Discharge Plan - Discharge Instructions Activity at Discharge: Resume Usual Activities As Tolerated Diet at Discharge: Diabetic Diet, Low Fat, Low Cholesterol Dressing Change: Daily Additional Instructions: Transfer to [facility] for further management of wounds. Discussed with Internal medicine team at [facility] (Dr. García) and they have accepted patient for further management. I talked this over with the patient and he is agreeable to being transferred today. Quality Measures - Quality Measures Quality Measures: Advance Directives, Documentation of Current Medications in Medical Record, Elder Maltreatment Screen and Follow-Up Plan, Screening for High Blood Pressure and F/U Documented - Current Medications Quality Measure: Measure #130: Documentation of Current Medications Documentation of Current Medications: <Current Medications Documented/Reviewed> [[id number]] - Blood Pressure Screening Quality Measure: Screening for High Blood Pressure and Follow-Up Documented Does Patient Have Any of the Following: Active Dx of HTN Blood Pressure Classification: Normal BP Reading Systolic Measurement: 86 Diastolic Measurement: 62 Screening for High Blood Pressure: Patient Exclusion, Hx of HTN [G9744] - Advance Directives Quality Measure: Measure #47: Care Plan Advance Directives Established: No Advance Directives Information Provided To Patient: No Advance Directives on File: No Living Will: No Power of Temperer: No Advance Care Planning: <Care Plan/Decision Maker Documented; Discussed & Documented> [9246F] - Elder Abuse Suspicion Index Screening: Elder Abuse Suspicion Index Screening Rely on people for bathing, dressing, shopping, banking, etc: No Prevented from getting food, clothes, medication, etc: No Made to feel shamed or threatened by someone: No Forced to sign papers or use money against will: No Feel afraid, touched in ways not wanted or hurt physically: No Poor eye contact, withdrawn, malnourished, cuts or bruises: No Screening Result: Negative result EASI Reference Information: Gu[place]o CEJA, Sanjiv C, Stacy D, Zulma Parker.Development and validation of a tool to assist physicians identification of elder abuse: The Elder Abuse Suspicion Index (EASI ). Journal of Elder Abuse and Neglect, 2008; 20 (3): 276-300. - Elder Maltreatment Screen Quality Measures: Elder Maltreatment Screen and Follow-Up Plan Elder Maltreatment Screen: <Negative, No Follow-Up Plan Required> [[id number]]
[2017-10-17] MEDS: CIPROFLOXACIN LACTATE/D5W 400 MG/200 ML BAG IVPB SCH (12:15)
[2017-10-17] MEDS ORDERED: 0.9 % SODIUM CHLORIDE 1000ML 1,000 ML IV PRN (14:48)
== END 2017-10-17 16:15 | disposition short-term general hospital (02) ==
LOC: ER 16:04 → MEDSURG 19:32
PROVIDERS: ADMIT Internal Medicine; ATTEND Internal Medicine
DX: E11.622 Type 2 diabetes mellitus with other skin ulcer (principal); L97.909 Non-pressure chronic ulcer of unspecified part of unspecified lower leg with unspecified severity; I95.9 Hypotension, unspecified; E11.22 Type 2 diabetes mellitus with diabetic chronic kidney disease; E11.9 Type 2 diabetes mellitus without complications; N18.3 Chronic kidney disease, stage 3 (moderate); I25.2 Old myocardial infarction; Z87.442 Personal history of urinary calculi; Z87.891 Personal history of nicotine dependence
CPT/HCPCS: 36416; 80048; 80061; 82948; 83036; 83880; 85027; 99223; 99233; 99239; 99285; J1650; J7030

== ENCOUNTER 2017-10-26 13:27 | Inpatient (IN) | payer MEDICARE ==
[2017-10-26] MEDS ORDERED: HYDROCODONE/APAP 7.5/325MG TABLET PO PRN (16:02)
--- NOTE | 2017-10-26 17:26 | History & Physical ---
History of Present Illness - Date of Service Date of Service for History & Physical: 10/26/17 - History of Present Illness Admitting Diagnosis: Deconditioning due to MRSA infection of wound, chronic kidney disease, diabetes History of Present Illness: PMHx: CKD, DMII, CAD, Nephrolithiasis, HLD, former heavy smoker (4PPD) Pt transferred today to [facility] from [facility] after being treated for diabetic wounds. He initially presented to [facility] with severe diabetic wounds roughly 1.5 weeks ago after trying to treat them on his own for 2 months. The pt was started on IV cipro and clinda without improvement and needed wound care so he was transferred to [facility] for further treatment and evaluation. There, he was started on vanco and meropenem. Cx was + for MRSA and Alcaligenes Faecalis. His WBC declined with treatment and his wounds improved. ID saw the pt and recommended 3 weeks of PO xyvox and levaquin for continued treatment. He did have some mild DAVID which resolved with stopping nephrotoxic drugs. He also did present with increased BNP and was started on lasix. Lisinopril was D/C'd. Today he states that his wounds have improved significantly and doesn't have any complaints. Travel Screening - Travel/Exposure Within Last 30 Days Have you traveled within the last 30 days?: No - Travel/Exposure Within Last Year Have you traveled outside the [place] in the last year?: No - Additonal Travel Details Have you been exposed to anyone with a communicable illness?: No - Travel Symptoms Symptom Screening: None Review of Systems Constitutional: Denies: Chills, Fever, Malaise, Weakness Eyes: Denies: Vision change ENT: Denies: Congestion, Ear pain, Throat pain Respiratory: Denies: Cough, Dyspnea, Wheezes Cardiovascular: Reports: Edema (in legs ). Denies: Chest pain, Dyspnea on exertion, Palpitations Endocrine: Denies: Fatigue Gastrointestinal: Denies: Abdominal pain, Constipation, Diarrhea, Melena, Nausea , Vomiting Genitourinary: Denies: Discharge, Dysuria, Frequency, Hematuria Musculoskeletal: Denies: Arthralgia Skin: Reports: Change in color, Lesions Neurological: Denies: Abnormal gait, Confusion, Headache, Weakness Psychiatric: Denies: Anxiety, Depression Past Medical History - SOCIAL HISTORY Smoking Status: Former smoker Alcohol Use: None Drug Use: None - RESPIRATORY Hx Respiratory Disorders: No - CARDIOVASCULAR Hx Cardio Disorders: Yes Hx Heart Attack: Yes (2006) - NEURO Hx Neuro Disorders: No - GI Hx GI Disorders: No - Hx Genitourinary Disorders: Yes Hx Kidney Stones: Yes - ENDOCRINE Hx Endocrine Disorders: Yes Hx Diabetes: Yes (type 2) - MUSCULOSKELETAL Hx Musculoskeletal Disorders: No - PSYCH Hx Psych Problems: No - HEMATOLOGY/ONCOLOGY Hx Hematology/Oncology Disorders: No H&P Meds/Allergies - Allergies Allergies: Allergies Allergy/AdvReac Type Severity Reaction Status Date / Time silver sulfadiazine Allergy Unverified 10/14/17 15:04 [From Silvadene] - Active Medications Active Medications: Current Medications Hydrocodone Bitart/Acetaminophen (Gulston 7.5mg/325mg) 1 each PO Q6H PRN PRN Reason: PAIN - MOD TO SEVERE (5-10) Aspirin (Aspirin Chewable) 81 mg PO DAILY OLIMPIA Carvedilol (Coreg) 6.25 mg PO BIDWM O[place] Furosemide (Lasix) 20 mg PO DAILY [place] Levofloxacin (Levaquin Tab) 750 mg PO DAILYFLUOR [place] Linezolid (Linezolid) 600 mg PO BID [place] Metformin HCl (Glucophage Ir) 500 mg PO DAILYWM [place] Pantoprazole Sodium (Protonix) 40 mg PO DAILYAC [place] Simvastatin (Zocor) 10 mg PO QHS [place] Tamsulosin HCl (Flomax) 0.4 mg PO DAILY OLIMPIA Physical Exam - General General Appearance: Alert, Oriented x3, Cooperative, No acute distress Limitations: No limitations - Head Head exam: Atraumatic, Normocephalic, Normal inspection Head exam detail: negative: CSF otorrhea, CSF rhinorrhea, General tenderness, Laceration - Eye Eye exam: Normal appearance. negative: Conjunctival injection, Scleral icterus Pupils: negative: Unequal - ENT ENT exam: Mucous membranes moist Ear exam: Normal external inspection Nasal Exam: Normal inspection Mouth exam: Other (poor dentition) Teeth exam: Dental caries - Neck Neck exam: Normal inspection - Respiratory Respiratory exam: Other (lung sounds decreased throughout given obese habitus) - Cardiovascular Cardiovascular Exam: Other (cardiac auscultation limited given obese body habitus, unable to hear well) Peripheral Pulses: 2+: Radial (R), Radial (L) - GI/Abdominal GI/Abdominal exam: Soft, Normal bowel sounds. negative: Distended, Tenderness - Rectal Rectal exam: Deferred - exam: Deferred - Extremities Extremities exam: Other (RLE exibits small round erythematous lesions including few small eschared lesions. LLE difusely erythematous with large areas of granualtion tissue and black eschar formation. TTP. No warmth on palpation. Serous fluid oozing present b/l L worse than R. No pain on palpation of the RLE and no warmth on palpation. ) - Back Back exam: Reports: Normal inspection - Neurological Neurological exam: Oriented X3 - Psychiatric Psychiatric exam: Normal affect, Normal mood - Skin Skin exam: Erythema Type of lesion: negative: Abscess Distribution of rash: RLE, LLE VTE H&P Assessment - Risk for VTE Risk for VTE: Yes Risk Level: High Risk Assessment Date: 10/26/17 Risk Assessment Time: 17:36 VTE Orders Placed or Will Be Placed: Yes Plan - Detailed Diagnosis and Plan (1) Diabetic ulcer of lower leg Current Visit: No Status: Acute Base Code: E11.622 - TYPE 2 DIABETES MELLITUS WITH OTHER SKIN ULCER; L97.909 - NON-PRS CHRONIC ULC UNSP PRT OF UNSP LOW LEG W UNSP SEVERITY Comment: 10/26/17: - Continue Levaquin and Xyvox as prescribed x 19 days. - Dressing changes TID. - CBC/BMP in AM. - HbA1C done at [facility] 7.1 - Pt doesn't take insulin at home. - PT/OT ordered. - Continue metformin daily as prescribed. - Mild SS ordered. (2) CKD (chronic kidney disease) Current Visit: Yes Status: Acute Base Code: N18.9 - CHRONIC KIDNEY DISEASE, UNSPECIFIED Comment: 10/26/17: - BMP in AM. - Will monitor for DAVID. - Lovenox renally dosed based on last GFR which was 32. Will increase in AM if GFR better than previous. (3) HTN (hypertension) Current Visit: Yes Status: Acute Base Code: I10 - ESSENTIAL (PRIMARY) HYPERTENSION Comment: 10/26/17: - Continue Coreg as prescribed. (4) HLD (hyperlipidemia) Current Visit: Yes Status: Acute Base Code: E78.5 - HYPERLIPIDEMIA, UNSPECIFIED Comment: 10/26/17: - Continue statin as prescribed. (5) Full code status Current Visit: No Status: Acute Base Code: Z78.9 - OTHER SPECIFIED HEALTH STATUS Comment: 10/17/17: FULL CODE
[2017-10-26] MEDS: CARVEDILOL 3.125 MG TABLET PO SCH (18:40)
[2017-10-26] MEDS: NOVOLOG FLEXPEN (INSULIN ASPART) 100 UNITS/ML SQ SCH (22:42)
[2017-10-26] MEDS: SIMVASTATIN 10MG TABLET PO SCH (22:42)
[2017-10-26] MEDS: LINEZOLID 600 MG TABLET PO SCH (22:42)
[2017-10-26] MEDS: HYDROCODONE/APAP 7.5/325MG TABLET PO SCH (22:43)
[2017-10-27] MEDS: HYDROCODONE/APAP 7.5/325MG TABLET PO SCH ×3 (02:31→10:03)
[2017-10-27] MEDS: PANTOPRAZOLE SODIUM 40 MG TABLET PO SCH (06:04)
[2017-10-27] MEDS: LEVOFLOXACIN 500 MG TABLET PO SCH (06:04)
[2017-10-27 06:40] LABS: HEMATOCRIT 43.1 % (42.0-52.0); HEMOGLOBIN 13.4 gm/dl (14.0-18.0); MEAN CELL VOLUME 90.5 fl (81-97); MEAN CORPUSCULAR HGB CONC 31.1 g/dl (32-36); MEAN PLATELET VOLUME 10.2 fl (7.4-10.4); PLATELET COUNT 262 K/uL (130-400); RED BLOOD COUNT 4.76 M/uL (4.40-5.70); RED CELL DISTRIBUTION WIDTH 14.3 % (11.5-14.5); WHITE BLOOD COUNT W/O DIFF 10.3 K/uL (4.2-12.2)
[2017-10-27 06:41] LABS: MEAN CORPUSCULAR HEMOGLOBIN 28.1 pg (27-33)
[2017-10-27 06:56] LABS: CREATININE 1.3 mg/dL (0.7-1.2)
[2017-10-27] MEDS ORDERED: ENOXAPARIN 30 MG/0.3 ML SYR SQ SCH (10:00)
[2017-10-27] MEDS: NOVOLOG FLEXPEN (INSULIN ASPART) 100 UNITS/ML SQ SCH ×4 (10:02→21:44)
[2017-10-27] MEDS: CARVEDILOL 3.125 MG TABLET PO SCH ×2 (10:03→18:32)
[2017-10-27] MEDS: METFORMIN 500 MG TABLET PO SCH (10:03)
[2017-10-27] MEDS: FUROSEMIDE 20 MG TABLET PO SCH (10:03)
[2017-10-27] MEDS: ASPIRIN 81 MG CHEWABLE TABLET PO SCH ×2 (10:03→10:11)
[2017-10-27] MEDS: TAMSULOSIN HCL 0.4 MG CAP.ER.24H PO SCH (10:03)
[2017-10-27] MEDS: ENOXAPARIN 40 MG/0.4 ML SYR SQ SCH (10:04)
[2017-10-27] MEDS: LINEZOLID 600 MG TABLET PO SCH ×2 (10:05→21:44)
[2017-10-27] MEDS ORDERED: ASPIRIN 81 MG TABEC PO ONE (11:20)
--- NOTE | 2017-10-27 11:28 | Rehab Evaluation ---
Patient Information - Patient Information Diagnosis: Deconditioning due to MRSA; infection of wound; chronic kidney disease; omayra Ordered Treatment: PT Evaluate and Treat Status: Initial Evaluation Surgery: No History: Detail (Pt. reports PMH significant for heart attack, Type 2 diabetes, lower extremity ulcer, and kidney complications currently being controlled with medications/monitored. Pt. notes sx at feet began ~2 months ago. Pt. was previously seen at [facility] for inpatient PT and was transferred to [facility] for wound care.) Past Med/Kelly Hx Detail: Detail (Please see additional forms regarding patient's PMH and medications.) Past Medical/Surgical Hx: PAST MEDICAL/SURGICAL HISTORY Past Surgical History gallbladder appendix PMH - Respiratory Hx Respiratory Disorders No PMH - Cardiovascular Hx Cardiovascular Disorders Yes Hx Heart Attack Yes: 2006 PMH - Neuro Hx Neurological Disorders No PMH - GI Hx Gastrointestinal Disorders No PMH - Hx Genitourinary Disorders Yes Hx Kidney Stones Yes PMH - Endocrine Hx Endocrine Disorders Yes Hx Diabetes Yes: type 2 PMH - Musculoskeletal Hx Musculoskeletal Disorders No PMH - Psych Hx Psychiatric Problems No PMH - Hematology/Oncology Hx Hematology/Oncology No Disorders Premorbid Status: Detail (Pt. reports full function and independent living at home prior to onset of sx ~2 months ago.) Social History: Detail (Pt. lives with daughter and provides support with daycare related activity. Pt. reports 3 steps leading into the home with hand rails. Pt. reports bedroom/bathroom is located on main floor. Pt. has a standard tub and no grab bars in the bathroom. Pt. has a single point cane but no walker.) Precautions: Fall (Univeral fall precaution secondary to bilateral diabetic foot ulcer and deconditioning. Pt. was not given weight weight bearing status and has been ambulating with front wheeled walker.) - Time With Patient Total Time Spent With Patient (Min): 60 Treatment Procedures: Detail (Physical Therapy initial evaluation completed.) Subjective Information - Subjective Information Per Patient (Pt. reports 7/10 resting pain, no increase in pain with weight bearing throughout evaluation. Pt. reports left foot more involved/painful than right.) Objective Data - Pain Pain Present: Yes Pain Intensity: 7 - Mental Status Patient Orientation: Oriented x3 - Visual Perception Appears within normal limits for therapeutic activities - ROM Other (BUE WFL all planes. Knee flexion and extension WFL actively. Ankle dorsiflexion and plantarflexion difficult to assess due to LE dressings. Bilateral hip flexion WFL.) - Strength/Tone Within normal limits - Coordination Appears within normal limits for therapeutic activities - Bed Mobility Independent (Pt. has been sleeping in a recliner secondary to difficulty breathing while supine. Bed mobility was deferred due to pt.'s current mode of sleep.) - Transfers Independent (Pt. was independent with sit to stand and stand to sit transfer. Pt. may require additional assessment of tub transfer with OT or PT at later date due to pt.'s current condition and that he has no modifications made in bathroom.) - Balance Balance Sitting: Good Balance Standing: Fair (Pt. maintained midline positioing with standing balance next to walker. Pt. exhibited trunk sway and LOB with light perturbation testing with feet togther and eyes open, severe LOB with AP/PA perturbations with pt. standing and eyes closed. Pt. maintained midline positioning with tandem stance positioning and equal weight bearing with front wheeled walker.) - Sensation Intact (Pt. correctly verbalized tacticle stimulus to palpation testing at toes bilaterally with eyes closed. Pt. was intact for proprioceptive and kinesthetic awareness BLE.) - Gait Detail (Pt. independently ambulated to the door of his room and back to bed with front wheeled walker, exhibiting equal stance time and step length and no loss of balance. Pt. was not assessed for stair use secondary to resting pain level and time constraints. Pt. will be assessed the next PT appointment for ambulation over steps.) - ADL's/IADL's Detail (Pt. was not assessed for donning and doffing his clothes/socks.) - Special Tests Yes (Negative Homans B.) Therapy Assessment - Therapy Assessment Detail (Pt. was functional with sit<->stand transfer, was found safe with standing balance using front wheeled walker for independent ambulation on level surfaces. Pt. does exhibit balance loss with perturbation testing without AD and is appropriate to continue ambulation with front wheeled walker for safe gait on level ground. Pt. will continue to require PT services to assess transfers in bathroom, ambulation over stairs, and continuation of LE mobility and strengthening exercises to prevent falls and improve pt.'s functional strength/mobility. Pt. is to be seen by nursing for wound care, and pt. may possibly be transferred to a wound clinic nearby for futher care.) Patient Education - Patient Education Teaching Topic: Exercise/Activity (Pt. was instructed to continue to perform heel slides, ankle pumps, hip marching, and long arch quads.), Precautions, Risk Factors Response: Return Demonstration Teaching Method: Discussion, Demonstration Teaching Recipient: Patient Barriers To Learning: None Problem List - Problem List Physical Therapy Problem List: Detail (1) Standing balance impairment 2) Pt. not assessed for bathroom transfer/limited support systems in home bathroom environment 3) Pain with full weight bearing without AD, LLE>RLE 4) Ambulation over stairs not assessed) Goals - Goals Physical Therapy Goals: 1) Pt. will be independent with safe bathroom transfers. 2) Pt. will be independent with ambulation over level surfaces and stairs using front wheeled walker. 3) Pt. will verbalize good understanding of LE exercises for continued strengthening and mobility. 4) Pt. will exhibit good midline positioning with standing balance using front wheeled walker. 5) Pt. will verbalize understanding of gait with front wheeled walker for use in home environment. Prognosis - Prognosis Good (Pt. is a good candidate to meet all PT goals and transition to independent living following medical clearance and maintenance of foot ulcers.) Plan - Plan Physical Therapy Plan: Pt. is to be seen 1-2x per day (M-F) for physical therapy services to improve standing balace/balance strategies, assess and instruct pt. on gait over steps, assess and instruct pt. on safe bathroom transfers.
[2017-10-27] MEDS ORDERED: HYDROCODONE/APAP 7.5/325MG TABLET PO PRN (13:55)
--- NOTE | 2017-10-27 13:55 | Physician Addendum ---
Addendum (Physician) Called by nurse last night. Pt requiring pain meds more often than prescribed at D/C. Will increase to 7.5mg Q4 hours. If pt doesn't require any insulin over 24 hours with accuchecks will D/C glucose check.
[2017-10-27] MEDS: HYDROCODONE/APAP 10/325 TABLET PO PRN ×3 (14:42→23:01)
[2017-10-27] MEDS: COLLAGENASE 30 GM TUBE TOP SCH (14:42)
[2017-10-27] MEDS: ACETAMINOPHEN 325 MG TAB PO SCH ×3 (14:43→23:01)
[2017-10-27] MEDS: SIMVASTATIN 10MG TABLET PO SCH (21:45)
[2017-10-28] MEDS: ACETAMINOPHEN 325 MG TAB PO SCH ×6 (03:10→22:58)
[2017-10-28] MEDS: HYDROCODONE/APAP 10/325 TABLET PO PRN ×5 (03:11→19:57)
[2017-10-28] MEDS: LEVOFLOXACIN 500 MG TABLET PO SCH (07:17)
[2017-10-28] MEDS: PANTOPRAZOLE SODIUM 40 MG TABLET PO SCH (07:19)
[2017-10-28] MEDS: NOVOLOG FLEXPEN (INSULIN ASPART) 100 UNITS/ML SQ SCH ×3 (08:38→17:10)
[2017-10-28] MEDS: CARVEDILOL 3.125 MG TABLET PO SCH ×2 (08:41→18:31)
[2017-10-28] MEDS: METFORMIN 500 MG TABLET PO SCH (08:41)
--- NOTE | 2017-10-28 09:58 | Rehab Evaluation ---
Patient Information - Patient Information Diagnosis: Deconditioning d/t MRSA; infection of wound; chronic kidney disease; diabet Ordered Treatment: OT Evaluate and Treat Status: Initial Evaluation Surgery: No History: Detail (Pt. reports PMH significant for heart attack, Type 2 diabetes, lower extremity ulcer, and kidney complications currently being controlled with medications/monitored. Pt. notes sx at feet began ~2 months ago. Pt. was previously seen at [facility] for inpatient PT and was transferred to [facility] for wound care.) Past Med/Kelly Hx Detail: Detail (Please see additional forms regarding patient's PMH and medications.) Past Medical/Surgical Hx: PAST MEDICAL/SURGICAL HISTORY Past Surgical History gallbladder appendix PMH - Respiratory Hx Respiratory Disorders No PMH - Cardiovascular Hx Cardiovascular Disorders Yes Hx Heart Attack Yes: 2006 PMH - Neuro Hx Neurological Disorders No PMH - GI Hx Gastrointestinal Disorders No PMH - Hx Genitourinary Disorders Yes Hx Kidney Stones Yes PMH - Endocrine Hx Endocrine Disorders Yes Hx Diabetes Yes: type 2 PMH - Musculoskeletal Hx Musculoskeletal Disorders No PMH - Psych Hx Psychiatric Problems No PMH - Hematology/Oncology Hx Hematology/Oncology No Disorders Premorbid Status: Detail (Pt. reports full function and independent living at home prior to onset of sx ~2 months ago.) Social History: Detail (Pt. lives with multiple family members and provides support with daycare related activity. He has a 2 story house with basement, his bedroom and bathroom are on the main level. Pt. reports 3 steps leading into the home with hand rails. Pt. has a standard tub/shower combination and a standard height toilet and no grab bars in the bathroom. Pt. has a single point cane but no walker. He was working party plan demonstrator on the weekends.) Precautions: Fall (Univeral fall precaution secondary to bilateral diabetic foot ulcer and deconditioning. Pt. was not given weight weight bearing status and has been ambulating with front wheeled walker.), Other (isolation) - Time With Patient Total Time Spent With Patient (Min): 45 Treatment Procedures: Detail (OT eval low complexity) Subjective Information - Subjective Information Per Patient Objective Data - Pain Pain Present: Yes (6-7/10 in left lower leg) - Mental Status Patient Orientation: Oriented x3 - Visual Perception Appears within normal limits for therapeutic activities (Pt wears glasses to read.) - ROM Within normal limits (Laurent UE AROM WNL) - Strength/Tone Within normal limits (Laurent UE strength WNL) - Coordination Appears within normal limits for therapeutic activities - Transfers Independent (Ind with sit to stand from chair and toilet heights) - Balance Balance Sitting: Good Balance Standing: Good - Sensation Intact - Gait Detail (Pt ambulating in room with 2 wheeled walker Indly.) - ADL's/IADL's Detail (Pt able to complete toileting Indly using standard height toilet. Pt able to doff briefs and t-shirt Indly, nursing assisted with slipper socks due to wrapping legs for shower. Pt completed total body shower in standing Indly. Pt able to dry self Indly. Pt donned t-shirt Indly, briefs with verbal cues for modified technique and hospital gown with assist to tie. Pt requested leaving slipper socks off. Pt able to comb hair Indly.) Therapy Assessment - Therapy Assessment Detail (Pt is Ind with showering, toileting and total body dressing with exception of slipper socks. He has WNL UE function.) Problem List - Problem List Physical Therapy Problem List: Detail (1) Standing balance impairment 2) Pt. not assessed for bathroom transfer/limited support systems in home bathroom environment 3) Pain with full weight bearing without AD, LLE>RLE 4) Ambulation over stairs not assessed) Occupational Therapy Problem List: Detail (1. Need to assess complete lower body dressing.) Goals - Goals Physical Therapy Goals: 1) Pt. will be independent with safe bathroom transfers. 2) Pt. will be independent with ambulation over level surfaces and stairs using front wheeled walker. 3) Pt. will verbalize good understanding of LE exercises for continued strengthening and mobility. 4) Pt. will exhibit good midline positioning with standing balance using front wheeled walker. 5) Pt. will verbalize understanding of gait with front wheeled walker for use in home environment. Occupational Therapy Goals: 1. Pt will be Ind with total body dressing including pants, socks and shoes as appropriate. Prognosis - Prognosis Good Plan - Plan Physical Therapy Plan: Pt. is to be seen 1-2x per day (M-F) for physical therapy services to improve standing balace/balance strategies, assess and instruct pt. on gait over steps, assess and instruct pt. on safe bathroom transfers. Occupational Therapy Plan: OT 1-2 visits to assess lower body dressing.
[2017-10-28] MEDS: ENOXAPARIN 40 MG/0.4 ML SYR SQ SCH (10:50)
[2017-10-28] MEDS: TAMSULOSIN HCL 0.4 MG CAP.ER.24H PO SCH (10:50)
[2017-10-28] MEDS: FUROSEMIDE 20 MG TABLET PO SCH (10:50)
[2017-10-28] MEDS: ASPIRIN 81 MG TABEC PO SCH (10:50)
[2017-10-28] MEDS: COLLAGENASE 30 GM TUBE TOP SCH (10:53)
--- NOTE | 2017-10-28 11:01 | Physical Therapy Tx Note ---
Physical Therapy Tx Note - Treatment Note Tolerated: Other (Pt. was not seen for stair assessment secondary to infection control.) Total Time Spent With Patient: 0 Physical Therapy Tx Note: Detail (Pt. was not seen today secondary to infection control. Pt. was seen earlier this morning by OT and was found to be independent /functional with bathroom transfers. Pt. will bee seen at later date for stair assessment prior to being D/C from PT.) Physical Therapy Problem List: Detail (1) Standing balance impairment 2) Pt. not assessed for bathroom transfer/limited support systems in home bathroom environment 3) Pain with full weight bearing without AD, LLE>RLE 4) Ambulation over stairs not assessed) Physical Therapy Goals: 1) Pt. will be independent with safe bathroom transfers. 2) Pt. will be independent with ambulation over level surfaces and stairs using front wheeled walker. 3) Pt. will verbalize good understanding of LE exercises for continued strengthening and mobility. 4) Pt. will exhibit good midline positioning with standing balance using front wheeled walker. 5) Pt. will verbalize understanding of gait with front wheeled walker for use in home environment. Physical Therapy Plan: Pt. is to be seen by PT once medically stable to assess and instruct pt. on gait over steps before D/C to home environment.
[2017-10-28] MEDS: LINEZOLID 600 MG TABLET PO SCH ×2 (11:47→22:56)
[2017-10-28] MEDS: BIFIDOBACTERIUM INFANTIS 4 MG CAPSULE PO SCH (18:31)
[2017-10-28] MEDS: SIMVASTATIN 10MG TABLET PO SCH (22:56)
[2017-10-29] MEDS: HYDROCODONE/APAP 10/325 TABLET PO PRN ×3 (01:16→10:33)
[2017-10-29] MEDS: ACETAMINOPHEN 325 MG TAB PO SCH ×3 (04:44→10:34)
[2017-10-29] MEDS: LEVOFLOXACIN 500 MG TABLET PO SCH (05:13)
[2017-10-29] MEDS: PANTOPRAZOLE SODIUM 40 MG TABLET PO SCH (06:31)
[2017-10-29] MEDS: CARVEDILOL 3.125 MG TABLET PO SCH ×2 (09:25→17:19)
[2017-10-29] MEDS: METFORMIN 500 MG TABLET PO SCH (09:25)
[2017-10-29] MEDS: ASPIRIN 81 MG TABEC PO SCH (09:26)
[2017-10-29] MEDS: BIFIDOBACTERIUM INFANTIS 4 MG CAPSULE PO SCH (09:26)
[2017-10-29] MEDS: TAMSULOSIN HCL 0.4 MG CAP.ER.24H PO SCH (09:26)
[2017-10-29 09:27] LABS: BASO % 0.2 % (0-6); EOS % 1.7 % (0-6); GRAN % 71.7 % (47-80); HEMATOCRIT 42.1 % (42.0-52.0); HEMOGLOBIN 13.4 gm/dl (14.0-18.0); LYMPH % 17.1 % (16-45); MEAN CORPUSCULAR HEMOGLOBIN 28.6 pg (27-33); MEAN CORPUSCULAR HGB CONC 31.8 g/dl (32-36); MEAN PLATELET VOLUME 10.8 fl (7.4-10.4); MONO % 9.3 % (0-9); PLATELET COUNT 265 K/uL (130-400); RED BLOOD COUNT 4.68 M/uL (4.40-5.70); RED CELL DISTRIBUTION WIDTH 14.2 % (11.5-14.5); WHITE BLOOD COUNT W/O DIFF 10.2 K/uL (4.2-12.2)
[2017-10-29] MEDS: FUROSEMIDE 20 MG TABLET PO SCH (09:27)
[2017-10-29] MEDS: LINEZOLID 600 MG TABLET PO SCH ×2 (09:27→21:38)
[2017-10-29] MEDS: ENOXAPARIN 40 MG/0.4 ML SYR SQ SCH (09:27)
[2017-10-29] MEDS: COLLAGENASE 30 GM TUBE TOP SCH (09:28)
[2017-10-29 09:40] LABS: CREATININE 1.3 mg/dL (0.7-1.2)
[2017-10-29] MEDS ORDERED: MORPHINE SULFATE 15 MG TABLET.ER PO SCH (12:00)
[2017-10-29] MEDS ORDERED: ACETAMINOPHEN 500 MG TABLET PO SCH (12:00)
[2017-10-29] MEDS: HYDROCODONE/APAP 7.5/325MG TABLET PO SCH ×3 (14:13→21:37)
[2017-10-29] MEDS: SIMVASTATIN 10MG TABLET PO SCH (21:38)
[2017-10-30] MEDS: HYDROCODONE/APAP 7.5/325MG TABLET PO SCH ×6 (01:49→21:23)
[2017-10-30] MEDS: PANTOPRAZOLE SODIUM 40 MG TABLET PO SCH (06:12)
[2017-10-30] MEDS: LEVOFLOXACIN 500 MG TABLET PO SCH (06:12)
[2017-10-30] MEDS: METFORMIN 500 MG TABLET PO SCH (08:01)
[2017-10-30] MEDS: CARVEDILOL 3.125 MG TABLET PO SCH ×2 (08:01→17:05)
[2017-10-30] MEDS: LINEZOLID 600 MG TABLET PO SCH ×2 (09:51→21:24)
[2017-10-30] MEDS: FUROSEMIDE 20 MG TABLET PO SCH (09:51)
[2017-10-30] MEDS: TAMSULOSIN HCL 0.4 MG CAP.ER.24H PO SCH (09:51)
[2017-10-30] MEDS: BIFIDOBACTERIUM INFANTIS 4 MG CAPSULE PO SCH (09:51)
[2017-10-30] MEDS: ASPIRIN 81 MG TABEC PO SCH (09:51)
[2017-10-30] MEDS: COLLAGENASE 30 GM TUBE TOP SCH (09:54)
[2017-10-30] MEDS: ENOXAPARIN 40 MG/0.4 ML SYR SQ SCH (09:54)
[2017-10-30] MEDS: SIMVASTATIN 10MG TABLET PO SCH (21:24)
[2017-10-31] MEDS: HYDROCODONE/APAP 7.5/325MG TABLET PO SCH ×6 (02:11→22:00)
[2017-10-31] MEDS: LEVOFLOXACIN 500 MG TABLET PO SCH (06:13)
[2017-10-31] MEDS: PANTOPRAZOLE SODIUM 40 MG TABLET PO SCH (06:13)
[2017-10-31] MEDS: METFORMIN 500 MG TABLET PO SCH (07:47)
[2017-10-31] MEDS: CARVEDILOL 3.125 MG TABLET PO SCH ×2 (07:47→17:10)
[2017-10-31] MEDS: BIFIDOBACTERIUM INFANTIS 4 MG CAPSULE PO SCH (09:49)
[2017-10-31] MEDS: TAMSULOSIN HCL 0.4 MG CAP.ER.24H PO SCH (09:50)
[2017-10-31] MEDS: ENOXAPARIN 40 MG/0.4 ML SYR SQ SCH (09:50)
[2017-10-31] MEDS: FUROSEMIDE 20 MG TABLET PO SCH (09:50)
[2017-10-31] MEDS: ASPIRIN 81 MG TABEC PO SCH (09:50)
[2017-10-31] MEDS: LINEZOLID 600 MG TABLET PO SCH ×2 (09:51→21:59)
[2017-10-31] MEDS: COLLAGENASE 30 GM TUBE TOP SCH (09:51)
[2017-10-31] MEDS: SIMVASTATIN 10MG TABLET PO SCH (22:00)
[2017-11-01] MEDS: HYDROCODONE/APAP 7.5/325MG TABLET PO SCH ×6 (02:09→22:12)
[2017-11-01] MEDS: PANTOPRAZOLE SODIUM 40 MG TABLET PO SCH (06:05)
[2017-11-01] MEDS: LEVOFLOXACIN 500 MG TABLET PO SCH (06:05)
[2017-11-01] MEDS: BIFIDOBACTERIUM INFANTIS 4 MG CAPSULE PO SCH ×2 (07:36→11:17)
[2017-11-01] MEDS: ASPIRIN 81 MG TABEC PO SCH ×2 (07:36→11:17)
[2017-11-01] MEDS: METFORMIN 500 MG TABLET PO SCH (07:36)
[2017-11-01] MEDS: CARVEDILOL 3.125 MG TABLET PO SCH ×2 (07:36→18:26)
[2017-11-01] MEDS: TAMSULOSIN HCL 0.4 MG CAP.ER.24H PO SCH ×2 (07:36→11:17)
[2017-11-01] MEDS: LINEZOLID 600 MG TABLET PO SCH ×3 (07:37→22:13)
[2017-11-01] MEDS: ENOXAPARIN 40 MG/0.4 ML SYR SQ SCH ×2 (07:37→11:17)
[2017-11-01] MEDS: FUROSEMIDE 20 MG TABLET PO SCH (13:27)
[2017-11-01] MEDS: COLLAGENASE 30 GM TUBE TOP SCH (13:30)
[2017-11-01] MEDS: SIMVASTATIN 10MG TABLET PO SCH (22:13)
[2017-11-02] MEDS: HYDROCODONE/APAP 7.5/325MG TABLET PO SCH ×3 (02:29→09:27)
[2017-11-02] MEDS: PANTOPRAZOLE SODIUM 40 MG TABLET PO SCH (06:24)
[2017-11-02] MEDS: LEVOFLOXACIN 500 MG TABLET PO SCH (06:24)
[2017-11-02] MEDS: CARVEDILOL 3.125 MG TABLET PO SCH ×2 (08:19→18:36)
[2017-11-02] MEDS: METFORMIN 500 MG TABLET PO SCH (09:20)
[2017-11-02] MEDS: LINEZOLID 600 MG TABLET PO SCH ×2 (09:22→22:15)
[2017-11-02] MEDS: COLLAGENASE 30 GM TUBE TOP SCH (09:22)
[2017-11-02] MEDS: BIFIDOBACTERIUM INFANTIS 4 MG CAPSULE PO SCH (09:23)
[2017-11-02] MEDS: FUROSEMIDE 20 MG TABLET PO SCH (09:23)
[2017-11-02] MEDS: ASPIRIN 81 MG TABEC PO SCH (09:25)
[2017-11-02] MEDS: TAMSULOSIN HCL 0.4 MG CAP.ER.24H PO SCH (09:26)
[2017-11-02] MEDS: ENOXAPARIN 40 MG/0.4 ML SYR SQ SCH (09:28)
[2017-11-02] MEDS: HYDROCODONE/APAP 7.5/325MG TABLET PO PRN ×2 (14:42→19:58)
[2017-11-02] MEDS: SIMVASTATIN 10MG TABLET PO SCH (22:15)
[2017-11-03] MEDS: LEVOFLOXACIN 500 MG TABLET PO SCH (05:46)
[2017-11-03] MEDS: HYDROCODONE/APAP 7.5/325MG TABLET PO PRN ×5 (05:52→23:34)
[2017-11-03] MEDS: PANTOPRAZOLE SODIUM 40 MG TABLET PO SCH (06:35)
[2017-11-03] MEDS: CARVEDILOL 3.125 MG TABLET PO SCH ×2 (08:40→08:45)
[2017-11-03] MEDS: METFORMIN 500 MG TABLET PO SCH (08:41)
[2017-11-03] MEDS: ENOXAPARIN 40 MG/0.4 ML SYR SQ SCH (10:45)
[2017-11-03] MEDS: ASPIRIN 81 MG TABEC PO SCH (10:45)
[2017-11-03] MEDS: TAMSULOSIN HCL 0.4 MG CAP.ER.24H PO SCH (10:45)
[2017-11-03] MEDS: LINEZOLID 600 MG TABLET PO SCH ×2 (10:45→22:07)
[2017-11-03] MEDS: FUROSEMIDE 20 MG TABLET PO SCH (10:46)
[2017-11-03] MEDS: BIFIDOBACTERIUM INFANTIS 4 MG CAPSULE PO SCH (10:46)
[2017-11-03] MEDS: LOPERAMIDE 2 MG CAPSULE PO PRN ×2 (18:30→22:37)
[2017-11-03] MEDS: COLLAGENASE 30 GM TUBE TOP SCH (19:45)
[2017-11-03] MEDS: SIMVASTATIN 10MG TABLET PO SCH (22:08)
[2017-11-04] MEDS: LEVOFLOXACIN 500 MG TABLET PO SCH (06:03)
[2017-11-04] MEDS: HYDROCODONE/APAP 7.5/325MG TABLET PO PRN ×4 (06:03→21:42)
[2017-11-04] MEDS: CARVEDILOL 3.125 MG TABLET PO SCH ×2 (08:35→18:54)
[2017-11-04] MEDS: PANTOPRAZOLE SODIUM 40 MG TABLET PO SCH (08:35)
[2017-11-04] MEDS: METFORMIN 500 MG TABLET PO SCH (08:35)
[2017-11-04] MEDS: LOPERAMIDE 2 MG CAPSULE PO PRN ×3 (09:11→21:42)
[2017-11-04] MEDS: ENOXAPARIN 40 MG/0.4 ML SYR SQ SCH (11:48)
[2017-11-04] MEDS: ASPIRIN 81 MG TABEC PO SCH (11:49)
[2017-11-04] MEDS: FUROSEMIDE 20 MG TABLET PO SCH (11:49)
[2017-11-04] MEDS: LINEZOLID 600 MG TABLET PO SCH ×2 (11:49→21:43)
[2017-11-04] MEDS: BIFIDOBACTERIUM INFANTIS 4 MG CAPSULE PO SCH (11:49)
[2017-11-04] MEDS: TAMSULOSIN HCL 0.4 MG CAP.ER.24H PO SCH (11:49)
[2017-11-04] MEDS: COLLAGENASE 30 GM TUBE TOP SCH (11:50)
[2017-11-04] MEDS: SIMVASTATIN 10MG TABLET PO SCH (21:43)
[2017-11-05] MEDS: LOPERAMIDE 2 MG CAPSULE PO PRN ×2 (06:24→09:58)
[2017-11-05] MEDS: LEVOFLOXACIN 500 MG TABLET PO SCH (06:24)
[2017-11-05] MEDS: PANTOPRAZOLE SODIUM 40 MG TABLET PO SCH (06:24)
[2017-11-05] MEDS: HYDROCODONE/APAP 7.5/325MG TABLET PO PRN ×5 (06:25→22:10)
[2017-11-05] MEDS: CARVEDILOL 3.125 MG TABLET PO SCH ×2 (08:21→17:03)
[2017-11-05] MEDS: METFORMIN 500 MG TABLET PO SCH (08:21)
[2017-11-05] MEDS: FUROSEMIDE 20 MG TABLET PO SCH (09:46)
[2017-11-05] MEDS: BIFIDOBACTERIUM INFANTIS 4 MG CAPSULE PO SCH (09:46)
[2017-11-05] MEDS: TAMSULOSIN HCL 0.4 MG CAP.ER.24H PO SCH (09:46)
[2017-11-05] MEDS: ENOXAPARIN 40 MG/0.4 ML SYR SQ SCH (09:46)
[2017-11-05] MEDS: ASPIRIN 81 MG TABEC PO SCH (09:46)
[2017-11-05] MEDS: COLLAGENASE 30 GM TUBE TOP SCH (09:47)
[2017-11-05] MEDS: LINEZOLID 600 MG TABLET PO SCH ×2 (09:48→22:08)
[2017-11-05] MEDS: PSYLLIUM HUSK/ASPARTAME 3.4 GM POWD.PACK PO SCH (10:05)
[2017-11-05] MEDS: SIMVASTATIN 10MG TABLET PO SCH (22:08)
[2017-11-06] MEDS: HYDROCODONE/APAP 7.5/325MG TABLET PO PRN ×4 (03:26→21:04)
[2017-11-06] MEDS: LEVOFLOXACIN 500 MG TABLET PO SCH (06:51)
[2017-11-06] MEDS: PANTOPRAZOLE SODIUM 40 MG TABLET PO SCH (06:51)
[2017-11-06] MEDS: METFORMIN 500 MG TABLET PO SCH (07:58)
[2017-11-06] MEDS: CARVEDILOL 3.125 MG TABLET PO SCH ×2 (07:59→16:42)
[2017-11-06] MEDS: ENOXAPARIN 40 MG/0.4 ML SYR SQ SCH (09:39)
[2017-11-06] MEDS: ASPIRIN 81 MG TABEC PO SCH (09:39)
[2017-11-06] MEDS: PSYLLIUM HUSK/ASPARTAME 3.4 GM POWD.PACK PO SCH (09:39)
[2017-11-06] MEDS: TAMSULOSIN HCL 0.4 MG CAP.ER.24H PO SCH (09:39)
[2017-11-06] MEDS: BIFIDOBACTERIUM INFANTIS 4 MG CAPSULE PO SCH (09:40)
[2017-11-06] MEDS: FUROSEMIDE 20 MG TABLET PO SCH (09:40)
[2017-11-06] MEDS: LINEZOLID 600 MG TABLET PO SCH ×2 (12:37→21:04)
[2017-11-06] MEDS: COLLAGENASE 30 GM TUBE TOP SCH (15:27)
[2017-11-06] MEDS: ONDANSETRON 4 MG ODT TABLET SL PRN (20:41)
[2017-11-06] MEDS: SIMVASTATIN 10MG TABLET PO SCH (21:04)
[2017-11-07] MEDS: HYDROCODONE/APAP 7.5/325MG TABLET PO PRN ×6 (02:01→22:41)
[2017-11-07] MEDS: LEVOFLOXACIN 500 MG TABLET PO SCH (06:03)
[2017-11-07] MEDS: PANTOPRAZOLE SODIUM 40 MG TABLET PO SCH (06:03)
[2017-11-07 06:58] LABS: BLOOD UREA NITROGEN 31 mg/dL (8-23); CREATININE 1.1 mg/dL (0.7-1.2); EST GLOMERULAR FILTRATION RATE > 60 mL/min; GLUCOSE,RANDOM 103 mg/dL (74-109)
--- NOTE | 2017-11-07 07:34 | US ARTERIAL DOPPLER REPORT ---
EXAM: URGENT BILATERAL LOWER EXTREMITY ARTERIAL DOPPLER ULTRASOUND HISTORY: BILATERAL ULCERS IN THE LOWER EXTREMITIES WITH PAIN IN BOTH LEGS. TECHNIQUE: Sonographic evaluation of the arterial system of the bilateral lower extremities was performed with the addition of Doppler and spectral analysis. Images were obtained with the vascular probe oriented 60 degrees. The personnel and payroll technician notes that because of extensive dressings over open wounds on the lower legs, no ankle brachial indices were able to be performed and the personnel and payroll technician is also unable to scan below the popliteal region bilaterally. Consequently the arterial anatomy bilaterally was evaluated from the level of the common femoral arteries through the popliteals only, bilaterally. Comparison: None. FINDINGS: 3 Right Waveform Left Waveform Common Femoral Artery 180 cm/s Biphasic 193 cm/s Biphasic Profunda Femoral Artery 167 cm/s Biphasic 108 cm/s Biphasic Proximal Superficial Femoral Artery 146 cm/s Biphasic 189 cm/s Monophasic Mid Superficial Femoral Artery 130 cm/s Biphasic 180 cm/s Monophasic Distal Superficial Femoral Artery 183 cm/s Biphasic 173 cm/s Monophasic Popliteal Artery 138 cm/s Biphasic 186 cm/s Monophasic Anterior Tibial Artery N/A N/A N/A N/A Posterior Tibial Artery N/A N/A N/A N/A Peroneal Artery N/A N/A N/A N/A Dorsalis Pedis Artery N/A N/A N/A N/A On the images themselves, some mild calcified plaque is seen in the right proximal SFA and probably in the left EXHAUST WORKER. IMPRESSION: 1. LIMITED STUDY WITH EVALUATION OF THE THIGHS AND POPLITEAL REGIONS ONLY DUE TO THE EXTENSIVE DRESSINGS OVER THE OPEN WOUNDS IN THE LOWER EXTREMITIES PRECLUDING EVALUATION OF THE CALVES AND ANKLES. 2. ELEVATED PEAK SYSTOLIC VELOCITIES THROUGHOUT MUCH OF THE THIGH ON THE RIGHT AND THE THIGH AND POPLITEAL REGION ON THE LEFT WITH MONOPHASIC WAVEFORMS THROUGHOUT THE SUPERFICIAL FEMORAL ARTERY AND POPLITEAL ON THE LEFT WELL. 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 JOB NUMBER: [id number] [facility]
[2017-11-07] MEDS: CARVEDILOL 3.125 MG TABLET PO SCH ×2 (08:26→18:38)
[2017-11-07] MEDS: METFORMIN 500 MG TABLET PO SCH (08:27)
[2017-11-07] MEDS: TAMSULOSIN HCL 0.4 MG CAP.ER.24H PO SCH (10:18)
[2017-11-07] MEDS: PSYLLIUM HUSK/ASPARTAME 3.4 GM POWD.PACK PO SCH (10:18)
[2017-11-07] MEDS: ENOXAPARIN 40 MG/0.4 ML SYR SQ SCH (10:18)
[2017-11-07] MEDS: FUROSEMIDE 20 MG TABLET PO SCH (10:18)
[2017-11-07] MEDS: ASPIRIN 81 MG TABEC PO SCH (10:19)
[2017-11-07] MEDS: BIFIDOBACTERIUM INFANTIS 4 MG CAPSULE PO SCH (10:19)
[2017-11-07] MEDS: LINEZOLID 600 MG TABLET PO SCH ×2 (10:19→22:02)
[2017-11-07] MEDS: COLLAGENASE 30 GM TUBE TOP SCH (10:19)
[2017-11-07] MEDS: SIMVASTATIN 10MG TABLET PO SCH (22:02)
[2017-11-08] MEDS: HYDROCODONE/APAP 7.5/325MG TABLET PO PRN ×5 (02:20→21:48)
[2017-11-08] MEDS: LEVOFLOXACIN 500 MG TABLET PO SCH (05:58)
[2017-11-08] MEDS: PANTOPRAZOLE SODIUM 40 MG TABLET PO SCH (06:07)
[2017-11-08] MEDS: METFORMIN 500 MG TABLET PO SCH (08:40)
[2017-11-08] MEDS: CARVEDILOL 3.125 MG TABLET PO SCH ×2 (08:41→17:38)
[2017-11-08] MEDS: PSYLLIUM HUSK/ASPARTAME 3.4 GM POWD.PACK PO SCH (11:38)
[2017-11-08] MEDS: ENOXAPARIN 40 MG/0.4 ML SYR SQ SCH (11:38)
[2017-11-08] MEDS: LINEZOLID 600 MG TABLET PO SCH ×2 (11:39→21:49)
[2017-11-08] MEDS: FUROSEMIDE 20 MG TABLET PO SCH (11:39)
[2017-11-08] MEDS: TAMSULOSIN HCL 0.4 MG CAP.ER.24H PO SCH (11:39)
[2017-11-08] MEDS: ASPIRIN 81 MG TABEC PO SCH (11:39)
[2017-11-08] MEDS: BIFIDOBACTERIUM INFANTIS 4 MG CAPSULE PO SCH (11:39)
[2017-11-08] MEDS: COLLAGENASE 30 GM TUBE TOP SCH (11:42)
[2017-11-08] MEDS ORDERED: HYDROMORPHONE HCL 2 MG/ML VIAL IM ONE (20:31)
[2017-11-08] MEDS: SIMVASTATIN 10MG TABLET PO SCH (21:48)
[2017-11-09] MEDS: HYDROCODONE/APAP 7.5/325MG TABLET PO PRN ×5 (02:51→23:50)
[2017-11-09] MEDS: PANTOPRAZOLE SODIUM 40 MG TABLET PO SCH (06:05)
[2017-11-09] MEDS: LEVOFLOXACIN 500 MG TABLET PO SCH (06:05)
[2017-11-09] MEDS: METFORMIN 500 MG TABLET PO SCH (08:28)
[2017-11-09] MEDS: CARVEDILOL 3.125 MG TABLET PO SCH ×2 (08:29→17:28)
[2017-11-09] MEDS: ONDANSETRON 4 MG ODT TABLET SL PRN (08:32)
[2017-11-09] MEDS: ENOXAPARIN 40 MG/0.4 ML SYR SQ SCH (09:13)
[2017-11-09] MEDS: BIFIDOBACTERIUM INFANTIS 4 MG CAPSULE PO SCH (09:13)
[2017-11-09] MEDS: FUROSEMIDE 20 MG TABLET PO SCH (09:14)
[2017-11-09] MEDS: ASPIRIN 81 MG TABEC PO SCH (09:14)
[2017-11-09] MEDS: PSYLLIUM HUSK/ASPARTAME 3.4 GM POWD.PACK PO SCH (09:14)
[2017-11-09] MEDS: TAMSULOSIN HCL 0.4 MG CAP.ER.24H PO SCH (09:14)
[2017-11-09] MEDS: LINEZOLID 600 MG TABLET PO SCH ×2 (09:47→21:52)
[2017-11-09] MEDS: COLLAGENASE 30 GM TUBE TOP SCH (10:43)
[2017-11-09] MEDS: SIMVASTATIN 10MG TABLET PO SCH (21:53)
[2017-11-10] MEDS: PANTOPRAZOLE SODIUM 40 MG TABLET PO SCH (06:00)
[2017-11-10] MEDS: HYDROCODONE/APAP 7.5/325MG TABLET PO PRN ×5 (06:00→23:49)
[2017-11-10] MEDS: LEVOFLOXACIN 500 MG TABLET PO SCH (06:01)
[2017-11-10] MEDS: METFORMIN 500 MG TABLET PO SCH (08:04)
[2017-11-10] MEDS: CARVEDILOL 3.125 MG TABLET PO SCH ×2 (08:04→17:34)
[2017-11-10] MEDS: ONDANSETRON 4 MG ODT TABLET SL PRN (09:13)
[2017-11-10] MEDS: PSYLLIUM HUSK/ASPARTAME 3.4 GM POWD.PACK PO SCH (10:08)
[2017-11-10] MEDS: ASPIRIN 81 MG TABEC PO SCH (10:09)
[2017-11-10] MEDS: TAMSULOSIN HCL 0.4 MG CAP.ER.24H PO SCH (10:09)
[2017-11-10] MEDS: BIFIDOBACTERIUM INFANTIS 4 MG CAPSULE PO SCH (10:09)
[2017-11-10] MEDS: FUROSEMIDE 20 MG TABLET PO SCH (10:09)
[2017-11-10] MEDS: ENOXAPARIN 40 MG/0.4 ML SYR SQ SCH (10:09)
[2017-11-10] MEDS: LINEZOLID 600 MG TABLET PO SCH ×2 (10:15→21:22)
[2017-11-10] MEDS: COLLAGENASE 30 GM TUBE TOP SCH (18:52)
[2017-11-10] MEDS: SIMVASTATIN 10MG TABLET PO SCH (21:22)
--- NOTE | 2017-11-10 21:46 | Physician Progress Note ---
Subjective - Date Date of Progress Note: 11/10/17 - Admitting Diagnosis Diagnosis: Deconditioning due to MRSA infection of wound, chronic kidney disease , diabetes - Subjective Nursing Care Plan Problem List Activity Intolerance (Swing Bed) Start: 10/26/17 18: 16 Freq: Status: Active Protocol: Created 10/26/17 18:16 KM (Rec: 10/26/17 18:16 [facility] [id number][place] High Risk: Altered Glucose Metabolism Start: 10/27/17 07: 50 Freq: Status: Active Protocol: Created 10/27/17 07:50 JAMES (Rec: 10/27/17 07:50 JAMES [id number]) High Risk: Impaired Skin Integrity Start: 10/27/17 07: 50 Freq: Status: Active Protocol: Created 10/27/17 07:50 JAMES (Rec: 10/27/17 07:50 JAMES [id number]) Impaired Skin Integrity Start: 10/27/17 07: 50 Freq: Status: Active Protocol: Created 10/27/17 07:50 JAMES (Rec: 10/27/17 07:50 JAMES [id number]) Knowledge Deficit (Swing Bed) Start: 10/26/17 18: 16 Freq: Status: Active Protocol: Created 10/26/17 18:16 KM (Rec: 10/26/17 18:16 [facility] [place] [id number][place] Knowledge Deficit: Diabetes Mellitus Start: 10/27/17 07: 50 Freq: Status: Active Protocol: Created 10/27/17 07:50 JAMES (Rec: 10/27/17 07:50 JAMES [id number]) Pain (Swing Bed) Start: 10/26/17 18: 16 Freq: Status: Active Protocol: Created 10/26/17 18:16 [facility] (Rec: 10/26/17 18:16 KM [id number]) Skin Integrity, Impaired (Swing Bed) Start: 10/27/17 00: 50 Freq: Status: Active Protocol: Created 10/27/17 00:50 LPR (Rec: 10/27/17 00:50 LPR [id number]) Subjective: 11/10/17: Patient swingbed status for extensive wound care. He was seen at the [facility] in [place] in 11/08/17 for left leg care. His next scheduled appointments with them are 11/14 and 11/17. The wound care provider would like to involve vascular surgery, who is requesting additional doppler imaging. Wound clinic staff will set-up vascular appointment and any further testing that needs to be completed at this time. Patient continues to require daily dressing changes at this time. Patient's right leg is being cared for by Dr. Lyn. Dr. Lyn came and consulted the patient and placed his orders for wound care specifics. He will continue to follow the patient outpatient. Patient's pain is controlled at this time with [place] 7.5/325 2 tabs q6h. Patient is not requiring pain medication scheduled, only on a prn basis. Upon discharge from [facility], patient was started on Levaquin and Linezolid for a duration of 3 weeks therapy. CBC and CMP have been monitored intermittently since admission, no concerns at this time. Case Management continues to work with patient to find housing for patient, as he currently has no place to go upon discharge. - Subjective Detail Comment: No additional complaints except as noted below Constitutional: Denies: Chills, Fever, Malaise, Weakness ENT: Denies: Congestion Respiratory: Denies: Cough, Dyspnea Cardiovascular: Denies: Arrhythmia Endocrine: Denies: Fatigue Gastrointestinal: Denies: Abdominal pain Genitourinary: Denies: Discharge Skin: Reports: Other (extensive wounds on lower extremities) Neurological: Denies: Confusion, Headache, Numbness Psychiatric: Denies: Anxiety Hematological/Lymphatic: Denies: Blood Clots General - Cognitive Patterns Speech: Normal Thought Process: Intact Thought Content: Normal - Communication Select best description of speech pattern: Clear Speech Ability to express ideas and wants: Understood Understanding verbal content: Understands - Mood and Behavior Patterns Appearance: Well Groomed Mood: Normal Attitude: Cooperative Motor Activity: Calm Affect: Appropriate Hallucinations: Denies - Physical Functioning Activity Level: Up as tolerated Turning: Self ad kieran ROM Ability: Moves all extremities Assistive Devices: 2 Wheel Walker Ambulation Ability: Independent Bed Mobility: Independent Transfer Ability: Independent Bathing Ability: Needs Assist Personal Hygiene: Independent Dressing Ability: Needs Assist Eating (Feeding) Ability: Independent Toileting Ability: Independent Administer Own Medication: Independent Care Ability Comment: needs assistance with wound care - Continence Bowel Pattern: Normal for Patient Bladder Pattern: Normal Meds/Allergies - Allergies Allergies Allergy/AdvReac Type Severity Reaction Status Date / Time silver sulfadiazine Allergy Unverified 10/14/17 15:04 [From Silvadene] - Active Medications Current Medications Hydrocodone Bitart/Acetaminophen ([place] 7.5mg/325mg) 2 each PO Q4H PRN PRN Reason: PAIN - MILD TO MODERATE (1-7) Last Admin: 11/10/17 19:19 Dose: 2 each Aspirin (Ecotrin (Ec)) 81 mg PO DAILY [facility] Last Admin: 11/10/17 10:09 Dose: 81 mg Carvedilol (Coreg) 6.25 mg PO BIDWM [facility] Last Admin: 11/10/17 17:34 Dose: 6.25 mg Collagenase (Santyl) 1 gm TOP DAILY [facility] Last Admin: 11/10/17 18:52 Dose: 1 gm Enoxaparin Sodium (Lovenox) 40 mg SQ DAILY [facility] Last Admin: 11/10/17 10:09 Dose: 40 mg Furosemide (Lasix) 20 mg PO DAILY [facility] Last Admin: 11/10/17 10:09 Dose: 20 mg Levofloxacin (Levaquin Tab) 750 mg PO DAILYFLUOR [facility] Last Admin: 11/10/17 06:01 Dose: 750 mg Linezolid (Linezolid) 600 mg PO BID [facility] Last Admin: 11/10/17 21:22 Dose: 600 mg Loperamide HCl (Immodium) 2 mg PO Q4H PRN PRN Reason: DIARRHEA Last Admin: 11/05/17 09:58 Dose: 2 mg Metformin HCl (Glucophage Ir) 500 mg PO DAILYWM [facility] Last Admin: 11/10/17 08:04 Dose: 500 mg Ondansetron HCl (Zofran Odt) 4 mg SL Q8H PRN PRN Reason: NAUSEA/VOMITING Last Admin: 11/10/17 09:13 Dose: 4 mg Pantoprazole Sodium (Protonix) 40 mg PO DAILYAC [facility] Last Admin: 11/10/17 06:00 Dose: 40 mg Psyllium Hydrophilic Mucilloid (Metamucil Pwd) 3.4 gm PO DAILY [facility] Last Admin: 11/10/17 10:08 Dose: 3.4 gm Simvastatin (Zocor) 10 mg PO QHS [facility] Last Admin: 11/10/17 21:22 Dose: 10 mg Tamsulosin HCl (Flomax) 0.4 mg PO DAILY [facility] Last Admin: 11/10/17 10:09 Dose: 0.4 mg Objective - Vital Signs Vital Signs: Vital Signs - Last 24 Hrs Temp Pulse Resp BP BP BP Pulse Ox 11/10/17 20:00 97.6 F 87 20 106/59 96 11/10/17 10:24 97.0 F L 131/83 11/10/17 08:00 97.0 F L 76 16 121/64 97 - General General Appearance: Alert, Oriented x3, Cooperative, No acute distress Limitations: No limitations - Head Head exam: Atraumatic, Normocephalic, Normal inspection Head exam detail: negative: CSF otorrhea, CSF rhinorrhea, General tenderness, Laceration - Eye Eye exam: Normal appearance. negative: Conjunctival injection, Scleral icterus Pupils: negative: Unequal - ENT ENT exam: Mucous membranes moist Ear exam: Normal external inspection Nasal Exam: Normal inspection Mouth exam: Other (poor dentition) Teeth exam: Dental caries - Neck Neck exam: Normal inspection - Respiratory Respiratory exam: Decreased breath sounds - Cardiovascular Cardiovascular Exam: Normal rhythm, Normal heart sounds Peripheral Pulses: 2+: Radial (R), Radial (L) - GI/Abdominal GI/Abdominal exam: Soft, Normal bowel sounds. negative: Distended, Tenderness - Rectal Rectal exam: Deferred - exam: Deferred - Extremities Extremities exam: Other (RLE exibits small round erythematous lesions including few small eschared lesions. LLE difusely erythematous with large areas of granualtion tissue and black eschar formation. TTP. No warmth on palpation. Serous fluid oozing present b/l L worse than R. No pain on palpation of the RLE and no warmth on palpation. ) - Back Back exam: Reports: Normal inspection - Neurological Neurological exam: Oriented X3 - Psychiatric Psychiatric exam: Normal affect, Normal mood - Skin Skin exam: Erythema Type of lesion: negative: Abscess Distribution of rash: RLE, LLE H&P Results - Labs Result Diagrams: 10/29/17 08:50 11/07/17 06:14 Labs Last 24 Hours: Laboratory Results - last 24 hr 11/10/17 06:33 POC Glucose 96 Discharge Potential - Discharge Needs Community Services Used Prior to Admission: None Patient Discharge Plan Description: Return Home Community Services Needed at Discharge: None Discharge Needs Comment: Wound Clinic Plan - Swing Bed Certification Initial Certification Due: 10/26/17 14 Day Re-Cert Due: 11/09/17 44 Day Re-Cert Due: 12/09/17 74 Day Re-Cert Due: 01/08/18 - Detailed Diagnosis and Plan (1) Diabetic ulcer of lower leg Current Visit: No Status: Acute Base Code: E11.622 - TYPE 2 DIABETES MELLITUS WITH OTHER SKIN ULCER; L97.909 - NON-PRS CHRONIC ULC UNSP PRT OF UNSP LOW LEG W UNSP SEVERITY Comment: 11/10/17: -Patient being seen by wound clinic in [place] 1-2 times per week. Vascular surgery consulted per wound clinic for further evaluation of wounds. - Continue Levaquin and Xyvox as prescribed x 21 days. - Dressing changes QD. - CBC/BMP monitored, WNL at this time. - HbA1C done at [facility] 7.1 - Pt doesn't take insulin at home. - PT/OT ordered. - Continue metformin daily as prescribed. - Mild SS ordered. (2) CKD (chronic kidney disease) Current Visit: Yes Status: Acute Base Code: N18.9 - CHRONIC KIDNEY DISEASE, UNSPECIFIED Comment: 11/10/17: - BMP in AM, kidney function remains at patient's baseline. - Will monitor for DAVID. - Lovenox renally dosed based on last GFR which was 32. (3) DVT prophylaxis Current Visit: No Status: Acute Base Code: [id number] - Comment: 11/10/17: - pt high risk of DVT - Lovenox 40 mg sq daily (4) Full code status Current Visit: No Status: Acute Base Code: Z78.9 - OTHER SPECIFIED HEALTH STATUS Comment: 11/10/17: FULL CODE
[2017-11-11] MEDS: LEVOFLOXACIN 500 MG TABLET PO SCH (06:09)
[2017-11-11] MEDS: HYDROCODONE/APAP 7.5/325MG TABLET PO PRN ×5 (06:09→23:52)
[2017-11-11] MEDS: PANTOPRAZOLE SODIUM 40 MG TABLET PO SCH (06:09)
[2017-11-11] MEDS: METFORMIN 500 MG TABLET PO SCH (08:27)
[2017-11-11] MEDS: CARVEDILOL 3.125 MG TABLET PO SCH ×2 (08:28→17:51)
[2017-11-11] MEDS: ENOXAPARIN 40 MG/0.4 ML SYR SQ SCH (10:06)
[2017-11-11] MEDS: ONDANSETRON 4 MG ODT TABLET SL PRN (10:06)
[2017-11-11] MEDS: PSYLLIUM HUSK/ASPARTAME 3.4 GM POWD.PACK PO SCH (10:07)
[2017-11-11] MEDS: ASPIRIN 81 MG TABEC PO SCH (10:07)
[2017-11-11] MEDS: FUROSEMIDE 20 MG TABLET PO SCH (10:07)
[2017-11-11] MEDS: TAMSULOSIN HCL 0.4 MG CAP.ER.24H PO SCH (10:07)
[2017-11-11] MEDS: BIFIDOBACTERIUM INFANTIS 4 MG CAPSULE PO SCH (10:07)
[2017-11-11] MEDS: LINEZOLID 600 MG TABLET PO SCH ×2 (10:07→21:29)
[2017-11-11] MEDS: COLLAGENASE 30 GM TUBE TOP SCH (17:54)
[2017-11-11] MEDS: SIMVASTATIN 10MG TABLET PO SCH (21:29)
[2017-11-12 06:00] LABS: BASO % 0.2 % (0-6); EOS % 2.7 % (0-6); GRAN % 57.5 % (47-80); HEMATOCRIT 37.8 % (42.0-52.0); LYMPH % 25.7 % (16-45); MEAN CELL VOLUME 89.6 fl (81-97); MEAN CORPUSCULAR HEMOGLOBIN 28.4 pg (27-33); MEAN CORPUSCULAR HGB CONC 31.7 g/dl (32-36); MEAN PLATELET VOLUME 10.8 fl (7.4-10.4); MONO % 13.9 % (0-9); RED BLOOD COUNT 4.22 M/uL (4.40-5.70); RED CELL DISTRIBUTION WIDTH 13.7 % (11.5-14.5); WHITE BLOOD COUNT W/O DIFF 5.1 K/uL (4.2-12.2)
[2017-11-12] MEDS: PANTOPRAZOLE SODIUM 40 MG TABLET PO SCH (06:01)
[2017-11-12] MEDS: LEVOFLOXACIN 500 MG TABLET PO SCH (06:01)
[2017-11-12] MEDS: HYDROCODONE/APAP 7.5/325MG TABLET PO PRN (06:02)
[2017-11-12 06:27] LABS: ALB/GLOB RATIO 1.4 (1.1-1.8); ALBUMIN 3.6 g/dL (4.0-5.0); ALKALINE PHOSPHATASE 49 U/L (40-129); ALT/SGPT 23 U/L (<41); AST/SGOT 22 U/L (10.0-50.0); BLOOD UREA NITROGEN 27 mg/dL (8-23); EST GLOMERULAR FILTRATION RATE > 60 mL/min; GLUCOSE,RANDOM 117 mg/dL (74-109); TOTAL PROTEIN 6.2 g/dL (6.6-8.7)
[2017-11-12 06:30] LABS: PLATELET COUNT 83 K/uL (130-400)
[2017-11-12] MEDS: CARVEDILOL 3.125 MG TABLET PO SCH ×2 (08:57→17:48)
--- NOTE | 2017-11-12 09:57 | Swing Bed Certification/Recert ---
Initial Certification Due: 10/26/17 14 Day Re-Cert Due: 11/09/17 44 Day Re-Cert Due: 12/09/17 74 Day Re-Cert Due: 01/08/18 CERTIFICATION 3 CERTIFICATION OF PATIENT ADMISSION Required at time of admission. Due: 10/26/17 I certify that SNF services are required to be given on an inpatient basis because of the above named patient's need for intermediate care on a continuing basis for the condition(s) for which he/she was receiving inpatient hospital services prior to his/her transfer to the SNF. The patient's current needs for skilled care includes: [daily dressing changes to right lower leg, BID dressing changes to left lower leg] Shanelle Ortiz, N.P. 11/12/17
[2017-11-12] MEDS: METFORMIN 500 MG TABLET PO SCH (09:58)
[2017-11-12] MEDS ORDERED: ENOXAPARIN 30 MG/0.3 ML SYR SQ SCH (10:00)
[2017-11-12] MEDS ORDERED: HYDROCODONE/APAP 10/325 TABLET PO PRN (10:03)
[2017-11-12] MEDS: FUROSEMIDE 20 MG TABLET PO SCH (10:58)
[2017-11-12] MEDS: TAMSULOSIN HCL 0.4 MG CAP.ER.24H PO SCH (10:58)
[2017-11-12] MEDS: ASPIRIN 81 MG TABEC PO SCH (10:58)
[2017-11-12] MEDS: PSYLLIUM HUSK/ASPARTAME 3.4 GM POWD.PACK PO SCH (10:58)
[2017-11-12] MEDS: BIFIDOBACTERIUM INFANTIS 4 MG CAPSULE PO SCH (10:58)
[2017-11-12] MEDS: LINEZOLID 600 MG TABLET PO SCH ×2 (10:59→21:39)
[2017-11-12] MEDS: COLLAGENASE 30 GM TUBE TOP SCH (16:39)
[2017-11-12] MEDS: OXYCODONE/APAP 7.5MG/325MG TABLET PO PRN (17:48)
[2017-11-12] MEDS: SIMVASTATIN 10MG TABLET PO SCH (21:42)
[2017-11-13] MEDS: OXYCODONE/APAP 7.5MG/325MG TABLET PO PRN ×5 (00:11→23:52)
[2017-11-13] MEDS: PANTOPRAZOLE SODIUM 40 MG TABLET PO SCH (06:07)
[2017-11-13] MEDS: LEVOFLOXACIN 500 MG TABLET PO SCH (06:07)
[2017-11-13 07:28] LABS: BASO % 0.2 % (0-6); EOS % 2.2 % (0-6); GRAN % 67.6 % (47-80); HEMATOCRIT 35.7 % (42.0-52.0); HEMOGLOBIN 11.4 gm/dl (14.0-18.0); LYMPH % 16.7 % (16-45); MEAN CELL VOLUME 88.6 fl (81-97); MEAN CORPUSCULAR HGB CONC 31.9 g/dl (32-36); MEAN PLATELET VOLUME 11.1 fl (7.4-10.4); MONO % 13.3 % (0-9); PLATELET COUNT 107 K/uL (130-400); RED BLOOD COUNT 4.03 M/uL (4.40-5.70); RED CELL DISTRIBUTION WIDTH 13.7 % (11.5-14.5); WHITE BLOOD COUNT W/O DIFF 5.9 K/uL (4.2-12.2)
[2017-11-13 07:46] LABS: MEAN CORPUSCULAR HEMOGLOBIN 28.2 pg (27-33)
[2017-11-13] MEDS: CARVEDILOL 3.125 MG TABLET PO SCH ×2 (08:46→18:18)
[2017-11-13] MEDS: METFORMIN 500 MG TABLET PO SCH (08:46)
[2017-11-13] MEDS: LINEZOLID 600 MG TABLET PO SCH ×2 (10:25→21:37)
[2017-11-13] MEDS: TAMSULOSIN HCL 0.4 MG CAP.ER.24H PO SCH (10:25)
[2017-11-13] MEDS: PSYLLIUM HUSK/ASPARTAME 3.4 GM POWD.PACK PO SCH (10:25)
[2017-11-13] MEDS: BIFIDOBACTERIUM INFANTIS 4 MG CAPSULE PO SCH (10:26)
[2017-11-13] MEDS: FUROSEMIDE 20 MG TABLET PO SCH ×2 (10:26)
--- NOTE | 2017-11-13 10:37 | Physician Progress Note ---
Subjective - Date Date of Progress Note: 11/13/17 - Admitting Diagnosis Diagnosis: Deconditioning due to MRSA infection of wound, chronic kidney disease , diabetes - Subjective Events since last encounter: 11/13/17: Patient's platelets have had a significant drop since admission. Platelets 265 on admission, 83 11/12/17. Lovenox was held due to concern for HIT. Patient has been on lovenox therapy since admission, 10/26/17. Heparin pf4 antibody ordered to test for HIT. No evidence of thrombosis at this time, no complaints of chest pain or shortness of breath. Platelets increased to 108 today, will continue to monitor. At this time, all DVT prophylaxis will be held. Nursing Care Plan Problem List Activity Intolerance (Swing Bed) Start: 10/26/17 18: 16 Freq: Status: Active Protocol: Created 10/26/17 18:16 [facility] [place]Rec: 10/26/17 18:16 [facility] [place] [id number][place] High Risk: Altered Glucose Metabolism Start: 10/27/17 07: 50 Freq: Status: Active Protocol: Created 10/27/17 07:50 JAMES (Rec: 10/27/17 07:50 JAMES [id number]) High Risk: Impaired Skin Integrity Start: 10/27/17 07: 50 Freq: Status: Active Protocol: Created 10/27/17 07:50 JAMES (Rec: 10/27/17 07:50 JAMES [id number]) Impaired Skin Integrity Start: 10/27/17 07: 50 Freq: Status: Active Protocol: Created 10/27/17 07:50 JAMES (Rec: 10/27/17 07:50 JAMES [id number]) Knowledge Deficit (Swing Bed) Start: 10/26/17 18: 16 Freq: Status: Active Protocol: Created 10/26/17 18:16 [facility] [place]Rec: 10/26/17 18:16 [facility] [place] [id number]) Knowledge Deficit: Diabetes Mellitus Start: 10/27/17 07: 50 Freq: Status: Active Protocol: Created 10/27/17 07:50 JAMES (Rec: 10/27/17 07:50 JAMES [id number]) Pain (Swing Bed) Start: 10/26/17 18: 16 Freq: Status: Active Protocol: Created 10/26/17 18:16 [facility] [place]Rec: 10/26/17 18:16 [facility] [place] [id number]) Skin Integrity, Impaired (Swing Bed) Start: 10/27/17 00: 50 Freq: Status: Active Protocol: Created 10/27/17 00:50 LPR (Rec: 10/27/17 00:50 LPR [id number]) General - Cognitive Patterns Speech: Normal Thought Process: Intact Thought Content: Normal - Communication Select best description of speech pattern: Clear Speech Ability to express ideas and wants: Understood Understanding verbal content: Understands - Mood and Behavior Patterns Appearance: Well Groomed Mood: Normal Attitude: Cooperative Motor Activity: Calm Affect: Appropriate Hallucinations: Denies - Physical Functioning Activity Level: Up as tolerated Turning: Self ad kieran ROM Ability: Moves all extremities Assistive Devices: 2 Wheel Walker Ambulation Ability: Independent Bed Mobility: Independent Transfer Ability: Independent Bathing Ability: Independent Personal Hygiene: Independent Dressing Ability: Independent Eating (Feeding) Ability: Independent Toileting Ability: Independent Administer Own Medication: Independent Care Ability Comment: needs assistance with wound care - Continence Bowel Pattern: Normal for Patient Bladder Pattern: Normal Meds/Allergies - Allergies Allergies Allergy/AdvReac Type Severity Reaction Status Date / Time silver sulfadiazine Allergy Unverified 10/14/17 15:04 [From Silvadene] - Active Medications Current Medications Ascorbic Acid (Vitamin C) 500 mg PO DAILY [facility] Aspirin (Ecotrin (Ec)) 81 mg PO DAILY [facility] Last Admin: 11/12/17 10:58 Dose: 81 mg Carvedilol (Coreg) 6.25 mg PO BIDWM [facility] Last Admin: 11/13/17 08:46 Dose: 6.25 mg Collagenase (Santyl) 1 gm TOP DAILY [facility] Last Admin: 11/12/17 16:39 Dose: 1 gm Furosemide (Lasix) 20 mg PO DAILY [facility] Last Admin: 11/13/17 10:26 Dose: 20 mg Levofloxacin (Levaquin Tab) 750 mg PO DAILYFLUOR [facility] Last Admin: 11/13/17 06:07 Dose: 750 mg Linezolid (Linezolid) 600 mg PO BID [facility] Last Admin: 11/13/17 10:25 Dose: 600 mg Loperamide HCl (Immodium) 2 mg PO Q4H PRN PRN Reason: DIARRHEA Last Admin: 11/05/17 09:58 Dose: 2 mg Metformin HCl (Glucophage Ir) 500 mg PO DAILYWM [facility] Last Admin: 11/13/17 08:46 Dose: 500 mg Multivitamins/Minerals (Centrum) 1 tab PO DAILY [facility] Ondansetron HCl (Zofran Odt) 4 mg SL Q8H PRN PRN Reason: NAUSEA/VOMITING Last Admin: 11/11/17 10:06 Dose: 4 mg Oxycodone/Acetaminophen (Percocet 7.5-325 Mg Tablet) 1 each PO Q6H PRN PRN Reason: PAIN - MILD TO MODERATE (1-7) Stop: 11/19/17 17:30 Last Admin: 11/13/17 06:27 Dose: 1 each Pantoprazole Sodium (Protonix) 40 mg PO DAILYAC [facility] Last Admin: 11/13/17 06:07 Dose: 40 mg Psyllium Hydrophilic Mucilloid (Metamucil Pwd) 3.4 gm PO DAILY [facility] Last Admin: 11/13/17 10:25 Dose: 3.4 gm Simvastatin (Zocor) 10 mg PO QHS [facility] Last Admin: 11/12/17 21:42 Dose: 10 mg Tamsulosin HCl (Flomax) 0.4 mg PO DAILY [facility] Last Admin: 11/13/17 10:25 Dose: 0.4 mg Objective - Vital Signs Vital Signs: Vital Signs - Last 24 Hrs Temp Pulse Resp BP Pulse Ox 11/12/17 20:00 98.0 F 78 20 113/81 100 H&P Results - Labs Result Diagrams: 11/13/17 07:10 11/12/17 05:45 Labs Last 24 Hours: Laboratory Results - last 24 hr 11/13/17 11/14/17 07:10 06:00 WBC 5.9 Cancelled Corrected WBC Cancelled RBC 4.03 L Cancelled Hgb 11.4 L Cancelled Hct 35.7 L Cancelled MCV 88.6 Cancelled MCH 28.2 Cancelled MCHC 31.9 L Cancelled RDW 13.7 Cancelled Plt Count 107 L Cancelled MPV 11.1 H Cancelled Gran % 67.6 Cancelled Lymphocytes % 16.7 Cancelled Monocytes % 13.3 H Cancelled Eosinophils % 2.2 Cancelled Basophils % 0.2 Cancelled Discharge Potential - Discharge Needs Community Services Used Prior to Admission: None Patient Discharge Plan Description: Return Home Community Services Needed at Discharge: None Discharge Needs Comment: Wound Clinic Plan - Swing Bed Certification Initial Certification Due: 10/26/17 14 Day Re-Cert Due: 11/09/17 44 Day Re-Cert Due: 12/09/17 74 Day Re-Cert Due: 01/08/18 - Detailed Diagnosis and Plan (1) Diabetic ulcer of lower leg Current Visit: No Status: Acute Base Code: E11.622 - TYPE 2 DIABETES MELLITUS WITH OTHER SKIN ULCER; L97.909 - NON-PRS CHRONIC ULC UNSP PRT OF UNSP LOW LEG W UNSP SEVERITY Comment: 11/13/17: -Patient being seen by wound clinic in [place] 1-2 times per week. Vascular surgery consulted per wound clinic for further evaluation of wounds. - Continue Levaquin and Xyvox as prescribed x 21 days. - Dressing changes QD. - CBC/BMP monitored, WNL at this time. - HbA1C done at [facility] 7.1 - Pt doesn't take insulin at home. - PT/OT ordered. - Continue metformin daily as prescribed. - Mild SS ordered. -Vit C, Zinc, and multivitamin ordered to promote healing. Cmo consult added to discuss increasing protein intake as well. (2) Thrombocytopenia Current Visit: Yes Status: Acute Base Code: D69.6 - THROMBOCYTOPENIA, UNSPECIFIED Comment: 11/13/17: Acute thrombocytopenia noted with platelets dropping to 83, previously 265 -Concern for HIT, will stop lovenox -Repeat platelets increased to 103. -Heparin pf4 antibody ordered, results pending -Will continue to monitor platelets (3) CKD (chronic kidney disease) Current Visit: Yes Status: Acute Base Code: N18.9 - CHRONIC KIDNEY DISEASE, UNSPECIFIED Comment: 11/13/17: - Kidney function remains at patient's baseline. - Will monitor for DAVID. (4) DVT prophylaxis Current Visit: No Status: Acute Base Code: [id number] - Comment: 11/13/17: - pt high risk of DVT -Currently holding lovenox or further prophylaxis due to thrombocytopenia and concern for HIT -Patient encouraged frequent ambulation in room (5) Full code status Current Visit: No Status: Acute Base Code: Z78.9 - OTHER SPECIFIED HEALTH STATUS Comment: 11/13/17: FULL CODE
[2017-11-13] MEDS: ONDANSETRON 4 MG ODT TABLET SL PRN (13:13)
[2017-11-13] MEDS: COLLAGENASE 30 GM TUBE TOP SCH (18:14)
[2017-11-13] MEDS: SIMVASTATIN 10MG TABLET PO SCH (21:37)
[2017-11-14] MEDS: LEVOFLOXACIN 500 MG TABLET PO SCH (05:51)
[2017-11-14] MEDS: OXYCODONE/APAP 7.5MG/325MG TABLET PO PRN ×3 (05:52→18:18)
[2017-11-14] MEDS: PANTOPRAZOLE SODIUM 40 MG TABLET PO SCH (06:10)
[2017-11-14 06:37] LABS: BASO % 0.1 % (0-6); EOS % 2.2 % (0-6); GRAN % 64.7 % (47-80); HEMOGLOBIN 12.5 gm/dl (14.0-18.0); LYMPH % 20.5 % (16-45); MEAN CELL VOLUME 88.4 fl (81-97); MEAN CORPUSCULAR HEMOGLOBIN 28.3 pg (27-33); MEAN CORPUSCULAR HGB CONC 32.1 g/dl (32-36); MEAN PLATELET VOLUME 10.2 fl (7.4-10.4); MONO % 12.5 % (0-9); PLATELET COUNT 89 K/uL (130-400); RED BLOOD COUNT 4.41 M/uL (4.40-5.70); RED CELL DISTRIBUTION WIDTH 13.8 % (11.5-14.5); WHITE BLOOD COUNT W/O DIFF 6.9 K/uL (4.2-12.2)
[2017-11-14] MEDS: METFORMIN 500 MG TABLET PO SCH ×2 (07:26→10:41)
[2017-11-14] MEDS: CARVEDILOL 3.125 MG TABLET PO SCH ×3 (07:26→18:18)
[2017-11-14] MEDS: LINEZOLID 600 MG TABLET PO SCH ×2 (10:41→21:44)
[2017-11-14] MEDS: MULTIVITAMINS/MINERALS TABLET PO SCH (10:41)
[2017-11-14] MEDS: ASCORBIC ACID 500 MG TAB PO SCH (10:41)
[2017-11-14] MEDS: FUROSEMIDE 20 MG TABLET PO SCH (10:41)
[2017-11-14] MEDS: PSYLLIUM HUSK/ASPARTAME 3.4 GM POWD.PACK PO SCH (10:41)
[2017-11-14] MEDS: TAMSULOSIN HCL 0.4 MG CAP.ER.24H PO SCH (10:42)
[2017-11-14] MEDS: BIFIDOBACTERIUM INFANTIS 4 MG CAPSULE PO SCH (10:42)
[2017-11-14] MEDS: ASPIRIN 81 MG TABEC PO SCH (10:45)
[2017-11-14] MEDS: COLLAGENASE 30 GM TUBE TOP SCH (17:31)
[2017-11-14] MEDS: SIMVASTATIN 10MG TABLET PO SCH (21:44)
[2017-11-15] MEDS: OXYCODONE/APAP 7.5MG/325MG TABLET PO PRN ×4 (00:10→18:00)
[2017-11-15] MEDS: LEVOFLOXACIN 500 MG TABLET PO SCH (06:09)
[2017-11-15] MEDS: PANTOPRAZOLE SODIUM 40 MG TABLET PO SCH (06:10)
[2017-11-15 07:02] LABS: EOS % 2.1 % (0-6); GRAN % 67.2 % (47-80); HEMATOCRIT 37.3 % (42.0-52.0); HEMOGLOBIN 11.7 gm/dl (14.0-18.0); LYMPH % 19.7 % (16-45); MEAN CORPUSCULAR HEMOGLOBIN 27.9 pg (27-33); MEAN CORPUSCULAR HGB CONC 31.4 g/dl (32-36); MEAN PLATELET VOLUME 10.3 fl (7.4-10.4); PLATELET COUNT 91 K/uL (130-400); RED BLOOD COUNT 4.19 M/uL (4.40-5.70); RED CELL DISTRIBUTION WIDTH 13.9 % (11.5-14.5); WHITE BLOOD COUNT W/O DIFF 6.7 K/uL (4.2-12.2)
[2017-11-15] MEDS: METFORMIN 500 MG TABLET PO SCH (07:47)
[2017-11-15] MEDS: CARVEDILOL 3.125 MG TABLET PO SCH ×2 (07:48→17:59)
[2017-11-15] MEDS: ONDANSETRON 4 MG ODT TABLET SL PRN (08:56)
[2017-11-15] MEDS: BIFIDOBACTERIUM INFANTIS 4 MG CAPSULE PO SCH (10:00)
[2017-11-15] MEDS: TAMSULOSIN HCL 0.4 MG CAP.ER.24H PO SCH (10:01)
[2017-11-15] MEDS: PSYLLIUM HUSK/ASPARTAME 3.4 GM POWD.PACK PO SCH (10:01)
[2017-11-15] MEDS: MULTIVITAMINS/MINERALS TABLET PO SCH (10:01)
[2017-11-15] MEDS: ASCORBIC ACID 500 MG TAB PO SCH (10:01)
[2017-11-15] MEDS: FUROSEMIDE 20 MG TABLET PO SCH (10:01)
[2017-11-15] MEDS: LINEZOLID 600 MG TABLET PO SCH ×2 (10:02→21:12)
[2017-11-15] MEDS ORDERED: ZINC OXIDE 28.35 GM TUBE TOP ONE (10:15)
[2017-11-15] MEDS: COLLAGENASE 30 GM TUBE TOP SCH (13:00)
[2017-11-15] MEDS: CLOTRIMAZOLE 1% 30 GM CREAM TP SCH (13:45)
[2017-11-15] MEDS: SIMVASTATIN 10MG TABLET PO SCH (21:12)
[2017-11-16] MEDS: OXYCODONE/APAP 7.5MG/325MG TABLET PO PRN ×5 (00:05→23:58)
[2017-11-16] MEDS: PANTOPRAZOLE SODIUM 40 MG TABLET PO SCH (06:02)
[2017-11-16] MEDS: LEVOFLOXACIN 500 MG TABLET PO SCH (06:03)
[2017-11-16] MEDS: ONDANSETRON 4 MG ODT TABLET SL PRN (06:33)
[2017-11-16] MEDS: CARVEDILOL 3.125 MG TABLET PO SCH ×2 (07:38→17:35)
[2017-11-16] MEDS: METFORMIN 500 MG TABLET PO SCH (07:39)
[2017-11-16] MEDS: LINEZOLID 600 MG TABLET PO SCH (09:36)
[2017-11-16] MEDS: BIFIDOBACTERIUM INFANTIS 4 MG CAPSULE PO SCH (09:36)
[2017-11-16] MEDS: MULTIVITAMINS/MINERALS TABLET PO SCH (09:36)
[2017-11-16] MEDS: PSYLLIUM HUSK/ASPARTAME 3.4 GM POWD.PACK PO SCH (09:36)
[2017-11-16] MEDS: FUROSEMIDE 20 MG TABLET PO SCH (09:37)
[2017-11-16] MEDS: ASPIRIN 81 MG TABEC PO SCH (09:37)
[2017-11-16] MEDS: ASCORBIC ACID 500 MG TAB PO SCH (09:37)
[2017-11-16] MEDS: TAMSULOSIN HCL 0.4 MG CAP.ER.24H PO SCH (09:37)
[2017-11-16] MEDS: CLOTRIMAZOLE 1% 30 GM CREAM TP SCH ×2 (10:41→14:11)
[2017-11-16] MEDS: ZINC SULFATE 220 MG CAPSULE PO SCH ×2 (10:41→21:23)
[2017-11-16] MEDS: COLLAGENASE 30 GM TUBE TOP SCH (14:11)
[2017-11-16] MEDS: ZINC OXIDE 28.35 GM TUBE TOP SCH (14:11)
[2017-11-16] MEDS: SIMVASTATIN 10MG TABLET PO SCH (21:23)
[2017-11-17] MEDS: OXYCODONE/APAP 7.5MG/325MG TABLET PO PRN ×4 (06:02→23:58)
[2017-11-17] MEDS: PANTOPRAZOLE SODIUM 40 MG TABLET PO SCH (06:02)
[2017-11-17] MEDS: METFORMIN 500 MG TABLET PO SCH (08:15)
[2017-11-17] MEDS: CARVEDILOL 3.125 MG TABLET PO SCH ×2 (08:15→17:10)
[2017-11-17] MEDS: PSYLLIUM HUSK/ASPARTAME 3.4 GM POWD.PACK PO SCH (09:33)
[2017-11-17] MEDS: ASCORBIC ACID 500 MG TAB PO SCH (09:35)
[2017-11-17] MEDS: TAMSULOSIN HCL 0.4 MG CAP.ER.24H PO SCH (09:35)
[2017-11-17] MEDS: FUROSEMIDE 20 MG TABLET PO SCH (09:35)
[2017-11-17] MEDS: MULTIVITAMINS/MINERALS TABLET PO SCH (09:35)
[2017-11-17] MEDS: ZINC SULFATE 220 MG CAPSULE PO SCH ×2 (09:35→21:23)
[2017-11-17] MEDS: BIFIDOBACTERIUM INFANTIS 4 MG CAPSULE PO SCH (09:35)
[2017-11-17] MEDS: ASPIRIN 81 MG TABEC PO SCH (09:35)
[2017-11-17] MEDS: ZINC OXIDE 28.35 GM TUBE TOP SCH (16:58)
[2017-11-17] MEDS: CLOTRIMAZOLE 1% 30 GM CREAM TP SCH (16:59)
[2017-11-17] MEDS: COLLAGENASE 30 GM TUBE TOP SCH (17:00)
[2017-11-17] MEDS: SIMVASTATIN 10MG TABLET PO SCH (21:23)
[2017-11-18] MEDS: PANTOPRAZOLE SODIUM 40 MG TABLET PO SCH (06:06)
[2017-11-18] MEDS: OXYCODONE/APAP 7.5MG/325MG TABLET PO PRN ×3 (06:06→17:43)
[2017-11-18] MEDS: METFORMIN 500 MG TABLET PO SCH (08:38)
[2017-11-18] MEDS: CARVEDILOL 3.125 MG TABLET PO SCH ×2 (08:38→17:45)
[2017-11-18] MEDS: FUROSEMIDE 20 MG TABLET PO SCH (10:07)
[2017-11-18] MEDS: ASPIRIN 81 MG TABEC PO SCH (10:07)
[2017-11-18] MEDS: MULTIVITAMINS/MINERALS TABLET PO SCH (10:07)
[2017-11-18] MEDS: ASCORBIC ACID 500 MG TAB PO SCH (10:07)
[2017-11-18] MEDS: PSYLLIUM HUSK/ASPARTAME 3.4 GM POWD.PACK PO SCH (10:07)
[2017-11-18] MEDS: BIFIDOBACTERIUM INFANTIS 4 MG CAPSULE PO SCH (10:07)
[2017-11-18] MEDS: TAMSULOSIN HCL 0.4 MG CAP.ER.24H PO SCH (10:08)
[2017-11-18] MEDS: ZINC SULFATE 220 MG CAPSULE PO SCH ×2 (15:58→21:40)
[2017-11-18] MEDS: ZINC OXIDE 28.35 GM TUBE TOP SCH (15:58)
[2017-11-18] MEDS: COLLAGENASE 30 GM TUBE TOP SCH (15:58)
[2017-11-18] MEDS: CLOTRIMAZOLE 1% 30 GM CREAM TP SCH (15:58)
--- NOTE | 2017-11-18 17:49 | Swing Bed Certification/Recert ---
Initial Certification Due: 10/26/17 14 Day Re-Cert Due: 11/09/17 44 Day Re-Cert Due: 12/09/17 74 Day Re-Cert Due: 01/08/18 CERTIFICATION 3 CERTIFICATION OF PATIENT ADMISSION Required at time of admission. Due: 10/26/17 I certify that SNF services are required to be given on an inpatient basis because of the above named patient's need for shelter care on a continuing basis for the condition(s) for which he/she was receiving inpatient hospital services prior to his/her transfer to the SNF. The patient's current needs for skilled care includes: [daily dressing changes to right lower leg, BID dressing changes to left lower leg] Shanelle Ortiz, N.P. 11/12/17 The patient still requires daily wound care and management for his leg wounds. He is progressing as expected.
[2017-11-18] MEDS: SIMVASTATIN 10MG TABLET PO SCH (21:40)
[2017-11-19] MEDS: OXYCODONE/APAP 7.5MG/325MG TABLET PO PRN ×5 (00:16→23:58)
[2017-11-19] MEDS: PANTOPRAZOLE SODIUM 40 MG TABLET PO SCH (06:13)
[2017-11-19] MEDS: METFORMIN 500 MG TABLET PO SCH (08:27)
[2017-11-19] MEDS: CARVEDILOL 3.125 MG TABLET PO SCH ×2 (08:27→18:18)
[2017-11-19] MEDS: MULTIVITAMINS/MINERALS TABLET PO SCH (10:27)
[2017-11-19] MEDS: PSYLLIUM HUSK/ASPARTAME 3.4 GM POWD.PACK PO SCH (10:27)
[2017-11-19] MEDS: ASPIRIN 81 MG TABEC PO SCH (10:28)
[2017-11-19] MEDS: TAMSULOSIN HCL 0.4 MG CAP.ER.24H PO SCH (10:28)
[2017-11-19] MEDS: FUROSEMIDE 20 MG TABLET PO SCH (10:28)
[2017-11-19] MEDS: ASCORBIC ACID 500 MG TAB PO SCH (10:28)
[2017-11-19] MEDS: BIFIDOBACTERIUM INFANTIS 4 MG CAPSULE PO SCH (10:28)
[2017-11-19] MEDS: CLOTRIMAZOLE 1% 30 GM CREAM TP SCH (14:29)
[2017-11-19] MEDS: ZINC OXIDE 28.35 GM TUBE TOP SCH (14:29)
[2017-11-19] MEDS: ZINC SULFATE 220 MG CAPSULE PO SCH ×2 (14:39→21:52)
[2017-11-19] MEDS: COLLAGENASE 30 GM TUBE TOP SCH (14:39)
[2017-11-19] MEDS: SIMVASTATIN 10MG TABLET PO SCH (21:52)
[2017-11-20] MEDS: OXYCODONE/APAP 7.5MG/325MG TABLET PO PRN ×3 (06:02→18:02)
[2017-11-20] MEDS: PANTOPRAZOLE SODIUM 40 MG TABLET PO SCH (06:02)
[2017-11-20 06:33] LABS: HEMATOCRIT 35.5 % (42.0-52.0); HEMOGLOBIN 11.3 gm/dl (14.0-18.0); MEAN CORPUSCULAR HEMOGLOBIN 28.3 pg (27-33); MEAN CORPUSCULAR HGB CONC 31.8 g/dl (32-36); MEAN PLATELET VOLUME 10.3 fl (7.4-10.4); PLATELET COUNT 112 K/uL (130-400); RED BLOOD COUNT 3.99 M/uL (4.40-5.70); WHITE BLOOD COUNT W/O DIFF 8.9 K/uL (4.2-12.2)
[2017-11-20 06:52] LABS: ANISOCYTOSIS 1+; PLATELET ESTIMATE NORMAL (NORMAL)
[2017-11-20 06:53] LABS: ALB/GLOB RATIO 1.4 (1.1-1.8); ALBUMIN 3.6 g/dL (4.0-5.0); ALKALINE PHOSPHATASE 57 U/L (40-129); ALT/SGPT 23 U/L (<41); AST/SGOT 25 U/L (10.0-50.0); BLOOD UREA NITROGEN 16 mg/dL (8-23); EST GLOMERULAR FILTRATION RATE > 60 mL/min; GLUCOSE,RANDOM 109 mg/dL (74-109); TOTAL PROTEIN 6.1 g/dL (6.6-8.7)
[2017-11-20] MEDS: METFORMIN 500 MG TABLET PO SCH (08:32)
[2017-11-20] MEDS: CARVEDILOL 3.125 MG TABLET PO SCH ×2 (08:32→18:02)
[2017-11-20] MEDS: PSYLLIUM HUSK/ASPARTAME 3.4 GM POWD.PACK PO SCH (10:02)
[2017-11-20] MEDS: BIFIDOBACTERIUM INFANTIS 4 MG CAPSULE PO SCH (10:03)
[2017-11-20] MEDS: ZINC OXIDE 28.35 GM TUBE TOP SCH (10:03)
[2017-11-20] MEDS: ASPIRIN 81 MG TABEC PO SCH (10:03)
[2017-11-20] MEDS: MULTIVITAMINS/MINERALS TABLET PO SCH (10:03)
[2017-11-20] MEDS: ASCORBIC ACID 500 MG TAB PO SCH (10:04)
[2017-11-20] MEDS: FUROSEMIDE 20 MG TABLET PO SCH (10:04)
[2017-11-20] MEDS: TAMSULOSIN HCL 0.4 MG CAP.ER.24H PO SCH (10:04)
[2017-11-20] MEDS: COLLAGENASE 30 GM TUBE TOP SCH (10:05)
[2017-11-20] MEDS: CLOTRIMAZOLE 1% 30 GM CREAM TP SCH (10:05)
[2017-11-20] MEDS: ZINC SULFATE 220 MG CAPSULE PO SCH ×2 (10:06→21:14)
[2017-11-20] MEDS: SIMVASTATIN 10MG TABLET PO SCH (21:14)
[2017-11-21] MEDS: OXYCODONE/APAP 7.5MG/325MG TABLET PO PRN ×4 (00:01→18:18)
[2017-11-21] MEDS: PANTOPRAZOLE SODIUM 40 MG TABLET PO SCH (06:07)
[2017-11-21] MEDS: CARVEDILOL 3.125 MG TABLET PO SCH ×2 (07:38→18:18)
[2017-11-21] MEDS: METFORMIN 500 MG TABLET PO SCH (07:38)
[2017-11-21] MEDS: ASPIRIN 81 MG TABEC PO SCH ×2 (07:39→09:11)
[2017-11-21] MEDS: TAMSULOSIN HCL 0.4 MG CAP.ER.24H PO SCH ×2 (07:39→09:11)
[2017-11-21] MEDS: ASCORBIC ACID 500 MG TAB PO SCH ×2 (07:39→09:13)
[2017-11-21] MEDS: MULTIVITAMINS/MINERALS TABLET PO SCH ×2 (07:39→09:11)
[2017-11-21] MEDS: BIFIDOBACTERIUM INFANTIS 4 MG CAPSULE PO SCH ×2 (07:39→09:11)
[2017-11-21] MEDS: ZINC SULFATE 220 MG CAPSULE PO SCH ×3 (07:40→22:17)
[2017-11-21] MEDS: FUROSEMIDE 20 MG TABLET PO SCH ×2 (07:40→09:12)
[2017-11-21] MEDS: PSYLLIUM HUSK/ASPARTAME 3.4 GM POWD.PACK PO SCH ×2 (07:40→09:12)
[2017-11-21] MEDS: ZINC OXIDE 28.35 GM TUBE TOP SCH (09:11)
[2017-11-21] MEDS: CLOTRIMAZOLE 1% 30 GM CREAM TP SCH (09:12)
[2017-11-21] MEDS: COLLAGENASE 30 GM TUBE TOP SCH (09:13)
--- NOTE | 2017-11-21 12:34 | Physician Progress Note ---
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, chronic kidney disease , diabetes - Subjective Nursing Care Plan Problem List Activity Intolerance (Swing Bed) Start: 10/26/17 18: 16 Freq: Status: Active Protocol: Created 10/26/17 18:16 KM (Rec: 10/26/17 18:16 KM [id number]) High Risk: Altered Glucose Metabolism Start: 10/27/17 07: 50 Freq: Status: Active Protocol: Created 10/27/17 07:50 JAMES (Rec: 10/27/17 07:50 JAMES [id number]) High Risk: Impaired Skin Integrity Start: 10/27/17 07: 50 Freq: Status: Active Protocol: Created 10/27/17 07:50 JAMES (Rec: 10/27/17 07:50 JAMES [id number]) Impaired Skin Integrity Start: 10/27/17 07: 50 Freq: Status: Active Protocol: Created 10/27/17 07:50 JAMES (Rec: 10/27/17 07:50 JAMES [id number]) Knowledge Deficit (Swing Bed) Start: 10/26/17 18: 16 Freq: Status: Active Protocol: Created 10/26/17 18:16 KM (Rec: 10/26/17 18:16 [id number][place] Knowledge Deficit: Diabetes Mellitus Start: 10/27/17 07: 50 Freq: Status: Active Protocol: Created 10/27/17 07:50 JAMES (Rec: 10/27/17 07:50 JAMES [id number]) Pain (Swing Bed) Start: 10/26/17 18: 16 Freq: Status: Complete Protocol: Created 10/26/17 18:16 KMC (Rec: 10/26/17 18:16 [facility] [id number]) Edit Status 11/15/17 23:21 SRP (Rec: 11/15/17 23:21 SRP [id number]) Active=>Complete Skin Integrity, Impaired (Swing Bed) Start: 10/27/17 00: 50 Freq: Status: Active Protocol: Created 10/27/17 00:50 LPR (Rec: 10/27/17 00:50 LPR [id number]) Subjective: The patient is alert, awake and oriented. He has just returned from the wound care clinic and his leg wound dressings are redressed. He has pain about 4/10 after dressing this morning. He also says that there was concern for shortness of breath while at wound clinic but he says he didn't feel any different. On observing the patient, he is no acute respiratory distress. General - Cognitive Patterns Speech: Normal Thought Process: Intact Thought Content: Normal - Communication Select best description of speech pattern: Clear Speech Ability to express ideas and wants: Understood Understanding verbal content: Understands - Mood and Behavior Patterns Appearance: Well Groomed Mood: Normal Attitude: Cooperative Motor Activity: Calm Affect: Appropriate Hallucinations: Denies - Physical Functioning Activity Level: Up as tolerated Turning: Self ad kieran ROM Ability: Within Normal Limits Assistive Devices: 2 Wheel Walker Activity Level Comment: has remained in recliner to this point in shift Ambulation Ability: Independent Bed Mobility: Independent Transfer Ability: Independent Bathing Ability: Independent Personal Hygiene: Independent Dressing Ability: Independent Eating (Feeding) Ability: Independent Toileting Ability: Independent Administer Own Medication: Independent Care Ability Comment: needs assistance with wound care - Continence Bowel Pattern: Normal for Patient Bladder Pattern: Normal Meds/Allergies - Allergies Allergies Allergy/AdvReac Type Severity Reaction Status Date / Time silver sulfadiazine Allergy Unverified 10/14/17 15:04 [From Silvadene] - Active Medications Current Medications Ascorbic Acid (Vitamin C) 500 mg PO DAILY [facility] Last Admin: 11/21/17 09:13 Dose: Not Given Aspirin (Ecotrin (Ec)) 81 mg PO DAILY [facility] Last Admin: 11/21/17 09:11 Dose: Not Given Carvedilol (Coreg) 6.25 mg PO BIDWM [facility] Last Admin: 11/21/17 07:38 Dose: 6.25 mg Clotrimazole (Lotrimin Af) 1 gm TP DAILY [facility] Last Admin: 11/21/17 09:12 Dose: Not Given Collagenase (Santyl) 1 gm TOP DAILY [facility] Last Admin: 11/21/17 09:13 Dose: Not Given Furosemide (Lasix) 20 mg PO DAILY [facility] Last Admin: 11/21/17 09:12 Dose: Not Given Loperamide HCl (Immodium) 2 mg PO Q4H PRN PRN Reason: DIARRHEA Last Admin: 11/05/17 09:58 Dose: 2 mg Metformin HCl (Glucophage Ir) 500 mg PO DAILYWM [facility] Last Admin: 11/21/17 07:38 Dose: 500 mg Multivitamins/Minerals (Centrum) 1 tab PO DAILY [facility] Last Admin: 11/21/17 09:11 Dose: Not Given Ondansetron HCl (Zofran Odt) 4 mg SL Q8H PRN PRN Reason: NAUSEA/VOMITING Last Admin: 11/16/17 06:33 Dose: 4 mg Oxycodone/Acetaminophen (Percocet 7.5-325 Mg Tablet) 1 each PO Q6H PRN PRN Reason: PAIN - MOD TO SEVERE (5-10) Stop: 11/26/17 18:18 Last Admin: 11/21/17 12:00 Dose: 1 each Pantoprazole Sodium (Protonix) 40 mg PO DAILYAC [facility] Last Admin: 11/21/17 06:07 Dose: 40 mg Psyllium Hydrophilic Mucilloid (Metamucil Pwd) 3.4 gm PO DAILY [facility] Last Admin: 11/21/17 09:12 Dose: Not Given Simvastatin (Zocor) 10 mg PO QHS [facility] Last Admin: 11/20/17 21:14 Dose: 10 mg Tamsulosin HCl (Flomax) 0.4 mg PO DAILY [facility] Last Admin: 11/21/17 09:11 Dose: Not Given Zinc Oxide (Desitin) 28.35 gm TOP DAILY [facility] Last Admin: 11/21/17 09:11 Dose: Not Given Zinc Sulfate (Zinc Sulfate) 220 mg PO BID [facility] Last Admin: 11/21/17 09:14 Dose: Not Given Objective - Vital Signs Vital Signs: Vital Signs - Last 24 Hrs Temp Pulse Resp BP BP BP Pulse Ox 11/21/17 08:57 98 F 124/76 11/21/17 07:29 98 F 56 L 18 124/76 92 L 11/20/17 19:54 98.2 F 76 16 115/57 92 L - General General Appearance: Alert, Oriented x3, Cooperative, No acute distress Limitations: No limitations - Head Head exam: Atraumatic, Normocephalic, Normal inspection Head exam detail: negative: CSF otorrhea, CSF rhinorrhea, General tenderness, Laceration - Eye Eye exam: Normal appearance. negative: Conjunctival injection, Scleral icterus Pupils: negative: Unequal - ENT ENT exam: Mucous membranes moist Ear exam: Normal external inspection Nasal Exam: Normal inspection Mouth exam: Other (poor dentition) Teeth exam: Dental caries - Neck Neck exam: Normal inspection - Respiratory Respiratory exam: Decreased breath sounds - Cardiovascular Cardiovascular Exam: Normal rhythm, Normal heart sounds Peripheral Pulses: 2+: Radial (R), Radial (L) - GI/Abdominal GI/Abdominal exam: Soft, Normal bowel sounds. negative: Distended, Tenderness - Rectal Rectal exam: Deferred - exam: Deferred - Extremities Extremities exam: Other (RLE exibits small round erythematous lesions including few small eschared lesions. LLE difusely erythematous with large areas of granualtion tissue and black eschar formation. TTP. No warmth on palpation. Serous fluid oozing present b/l L worse than R. No pain on palpation of the RLE and no warmth on palpation. ) - Back Back exam: Reports: Normal inspection - Neurological Neurological exam: Oriented X3 - Psychiatric Psychiatric exam: Normal affect, Normal mood - Skin Skin exam: Erythema Type of lesion: negative: Abscess Distribution of rash: RLE, LLE H&P Results - Labs Result Diagrams: 11/20/17 06:20 11/20/17 06:20 Discharge Potential - Discharge Needs Community Services Used Prior to Admission: None Patient Discharge Plan Description: Return Home Community Services Needed at Discharge: None Discharge Needs Comment: Wound Clinic Plan - Swing Bed Certification Initial Certification Due: 10/26/17 14 Day Re-Cert Due: 11/09/17 44 Day Re-Cert Due: 12/09/17 74 Day Re-Cert Due: 01/08/18 - Detailed Diagnosis and Plan (1) Diabetic ulcer of lower leg Current Visit: No Status: Acute Base Code: E11.622 - TYPE 2 DIABETES MELLITUS WITH OTHER SKIN ULCER; L97.909 - NON-PRS CHRONIC ULC UNSP PRT OF UNSP LOW LEG W UNSP SEVERITY Comment: 11/21/17: - Daily wound dressing and topical abx applied. - Weekly wound care visits for debridement. - Completed 21 day abx course. CBC w/diff: WNL - PT/OT daily, Vit C, Zinc, and multivitamin ordered to promote healing - Percocet Q6H PRN - Podiatry evaluated today for hypertrophic nails. (2) Diabetes mellitus, type II Current Visit: No Status: Acute Qualifiers: Diabetes mellitus buttermaker helper insulin use: without buttermaker helper use Base Code: E11.9 - TYPE 2 DIABETES MELLITUS WITHOUT COMPLICATIONS Comment: 11/21/17: - Hba1c 7.4% - Metformin 500mg QD - POC AcHS, ADA diet. (3) CKD stage 3 due to type 2 diabetes mellitus Current Visit: No Status: Acute Base Code: E11.22 - TYPE 2 DIABETES MELLITUS W DIABETIC CHRONIC KIDNEY DISEASE; N18.3 - CHRONIC KIDNEY DISEASE, STAGE 3 (MODERATE) Comment: 11/21/17: - EGFR 40 , Bun/Cr 40/1.8 --> 61/2.6 --> 58/2.2--> 30: 16/1.0 - repeat electrolyte panel q3 days, on metformin, and Lasix 20mg. (4) DVT prophylaxis Current Visit: No Status: Acute Base Code: EBM5676 - Comment: 11/21/17: - Pt high risk of DVT - Resume lovenox 40mg QD. Concern for HIT with decline in platelets. CBC ordered for monitoring. - Patient encouraged frequent ambulation in room (5) Full code status Current Visit: No Status: Acute Base Code: Z78.9 - OTHER SPECIFIED HEALTH STATUS Comment: 11/21/17: FULL CODE
[2017-11-21] MEDS: ENOXAPARIN 40 MG/0.4 ML SYR SQ SCH (14:33)
[2017-11-21] MEDS: SIMVASTATIN 10MG TABLET PO SCH (22:17)
[2017-11-22] MEDS: OXYCODONE/APAP 7.5MG/325MG TABLET PO PRN ×4 (00:35→18:31)
[2017-11-22] MEDS: PANTOPRAZOLE SODIUM 40 MG TABLET PO SCH (06:20)
[2017-11-22] MEDS: MULTIVITAMINS/MINERALS TABLET PO SCH (09:08)
[2017-11-22] MEDS: BIFIDOBACTERIUM INFANTIS 4 MG CAPSULE PO SCH (09:08)
[2017-11-22] MEDS: ZINC SULFATE 220 MG CAPSULE PO SCH ×2 (09:09→21:52)
[2017-11-22] MEDS: CARVEDILOL 3.125 MG TABLET PO SCH ×2 (09:09→18:31)
[2017-11-22] MEDS: TAMSULOSIN HCL 0.4 MG CAP.ER.24H PO SCH (09:09)
[2017-11-22] MEDS: ASPIRIN 81 MG TABEC PO SCH (09:09)
[2017-11-22] MEDS: ASCORBIC ACID 500 MG TAB PO SCH (09:09)
[2017-11-22] MEDS: METFORMIN 500 MG TABLET PO SCH (09:11)
[2017-11-22] MEDS: PSYLLIUM HUSK/ASPARTAME 3.4 GM POWD.PACK PO SCH (11:43)
[2017-11-22] MEDS: ENOXAPARIN 40 MG/0.4 ML SYR SQ SCH (11:43)
[2017-11-22] MEDS: FUROSEMIDE 20 MG TABLET PO SCH (11:44)
[2017-11-22] MEDS: ZINC OXIDE 28.35 GM TUBE TOP SCH (11:45)
[2017-11-22] MEDS: COLLAGENASE 30 GM TUBE TOP SCH (11:46)
[2017-11-22] MEDS: CLOTRIMAZOLE 1% 30 GM CREAM TP SCH (11:46)
[2017-11-22] MEDS: SIMVASTATIN 10MG TABLET PO SCH (21:52)
[2017-11-23] MEDS: OXYCODONE/APAP 7.5MG/325MG TABLET PO PRN ×5 (00:02→21:42)
[2017-11-23] MEDS: PANTOPRAZOLE SODIUM 40 MG TABLET PO SCH (06:14)
[2017-11-23 07:09] LABS: MEAN CELL VOLUME 92.1 fl (81-97); MEAN CORPUSCULAR HEMOGLOBIN 28.1 pg (27-33); MEAN CORPUSCULAR HGB CONC 30.6 g/dl (32-36); MEAN PLATELET VOLUME 10.6 fl (7.4-10.4); PLATELET COUNT 139 K/uL (130-400); RED BLOOD COUNT 3.91 M/uL (4.40-5.70); WHITE BLOOD COUNT W/O DIFF 7.3 K/uL (4.2-12.2)
[2017-11-23 07:26] LABS: BLOOD UREA NITROGEN 13 mg/dL (8-23); EST GLOMERULAR FILTRATION RATE > 60 mL/min; GLUCOSE,RANDOM 125 mg/dL (74-109)
[2017-11-23 07:28] LABS: PLATELET ESTIMATE NORMAL (NORMAL)
[2017-11-23] MEDS: CARVEDILOL 3.125 MG TABLET PO SCH ×2 (08:14→17:25)
[2017-11-23] MEDS: METFORMIN 500 MG TABLET PO SCH (08:14)
[2017-11-23] MEDS: ASPIRIN 81 MG TABEC PO SCH (09:49)
[2017-11-23] MEDS: ASCORBIC ACID 500 MG TAB PO SCH (09:49)
[2017-11-23] MEDS: MULTIVITAMINS/MINERALS TABLET PO SCH (09:49)
[2017-11-23] MEDS: BIFIDOBACTERIUM INFANTIS 4 MG CAPSULE PO SCH (09:49)
[2017-11-23] MEDS: ENOXAPARIN 40 MG/0.4 ML SYR SQ SCH (09:49)
[2017-11-23] MEDS: TAMSULOSIN HCL 0.4 MG CAP.ER.24H PO SCH (09:49)
[2017-11-23] MEDS: PSYLLIUM HUSK/ASPARTAME 3.4 GM POWD.PACK PO SCH (09:49)
[2017-11-23] MEDS: FUROSEMIDE 20 MG TABLET PO SCH (09:49)
[2017-11-23] MEDS: ZINC SULFATE 220 MG CAPSULE PO SCH ×2 (09:51→21:39)
[2017-11-23] MEDS: ZINC OXIDE 28.35 GM TUBE TOP SCH (09:53)
[2017-11-23] MEDS: CLOTRIMAZOLE 1% 30 GM CREAM TP SCH (09:54)
[2017-11-23] MEDS: COLLAGENASE 30 GM TUBE TOP SCH (09:54)
[2017-11-23] MEDS: SIMVASTATIN 10MG TABLET PO SCH (21:40)
--- NOTE | 2017-11-23 22:10 | Physician Progress Note ---
Subjective - Date Date of Physician Progress Note: 11/23/17 - Subjective Subjective Comment: Pt reports increased redness and some warmth to his left thigh when he woke up this morning, however he reports that it has lessened as the day went on. States that the redness and warmth have come a gone since his antibiotics were stopped a few weeks ago. Review of medical records indicates that Zyvox and Levaquin were completed on 11/13/2017. Reports that nursing staff outlined area of redness today. Pt reports that his pain is controlled for about 4 hours on the Percocet. Reports that he can tell when it has been 6 hours. Feels that Percocet works better than [place]. Location: Left, Lower extremity Quality: Burning Improves with: Medication Worsens with: Movement Objective - Vital Signs Vital Signs: Vital Signs - Last 24 Hrs Temp Pulse Resp BP Pulse Ox 11/23/17 20:00 97.9 F 64 20 123/46 95 11/23/17 08:00 97.0 F L 76 16 123/77 95 - General General Appearance: Alert, Oriented x3, Cooperative, No acute distress Limitations: No limitations - Head Head exam: Atraumatic, Normocephalic, Normal inspection Head exam detail: negative: CSF otorrhea, CSF rhinorrhea, General tenderness, Laceration - Eye Eye exam: Normal appearance. negative: Conjunctival injection, Scleral icterus Pupils: negative: Unequal - ENT ENT exam: Mucous membranes moist Ear exam: Normal external inspection Nasal Exam: Normal inspection Mouth exam: Other (poor dentition) Teeth exam: Dental caries - Neck Neck exam: Normal inspection - Respiratory Respiratory exam: Decreased breath sounds - Cardiovascular Cardiovascular Exam: Normal rhythm, Normal heart sounds Peripheral Pulses: 2+: Radial (R), Radial (L) - GI/Abdominal GI/Abdominal exam: Soft, Normal bowel sounds. negative: Distended, Tenderness - Rectal Rectal exam: Deferred - exam: Deferred - Extremities Extremities exam: Other (RLE exibits small round erythematous lesions including few small eschared lesions. LLE difusely erythematous with large areas of granualtion tissue and black eschar formation. TTP. No warmth on palpation. Serous fluid oozing present b/l L worse than R. No pain on palpation of the RLE and no warmth on palpation. ) - Back Back exam: Reports: Normal inspection - Neurological Neurological exam: Oriented X3 - Psychiatric Psychiatric exam: Normal affect, Normal mood - Skin Skin exam: Abrasion (2 small open areas to left medial thigh), Erythema (to left lateral and medial thigh, margins marked), Warm (to left lateral and medial thigh, margins marked) Type of lesion: negative: Abscess Distribution of rash: RLE, LLE Description of rash: Discharge Assessment and Plan - Assessment and Plan (1) Diabetic ulcer of lower leg Current Visit: No Status: Acute Base Code: E11.622 - TYPE 2 DIABETES MELLITUS WITH OTHER SKIN ULCER; L97.909 - NON-PRS CHRONIC ULC UNSP PRT OF UNSP LOW LEG W UNSP SEVERITY Comment: 11/23/17: -Redness and warmth areas to lateral and medial left thigh marked to evaluate margins -Continue daily wound dressing and topical abx -WBC 7.3 -Monitor redness and warmth, if worsenes, will consider restarting Zyvox and Levaquin and setting up f/u with Infectious Disease -Continue PT/OT -Next wound care visit on 11/28/17 -Percocet changed to Q4H PRN (2) Thrombocytopenia Current Visit: Yes Status: Acute Base Code: D69.6 - THROMBOCYTOPENIA, UNSPECIFIED Comment: 11/23/17: -Lovenox restarted on 11/21/17 -Platelets 139, up from 112 -Continue Lovenox at this time as pt is at high risk of DVT (3) Full code status Current Visit: Yes Status: Acute Base Code: Z78.9 - OTHER SPECIFIED HEALTH STATUS Comment: 11/23/17: FULL CODE Results - Labs Result Diagrams: 11/23/17 06:51 11/23/17 06:51 Labs Last 24 Hours: Laboratory Results - last 24 hr 11/23/17 11/23/17 06:51 06:51 WBC 7.3 RBC 3.91 L Hgb 11.0 L Hct 36.0 L MCV 92.1 MCH 28.1 MCHC 30.6 L RDW 16.0 H Plt Count 139 MPV 10.6 H Neutrophils % 72.0 Band Neutrophils % 3.0 Eosinophils % Not Reportable Basophils % Not Reportable Lymphocytes 14.0 L Monocytes 9.0 Platelet Estimate Normal RBC Morphology Normal Eosinophil Count 2.0 Sodium 142 Potassium 4.2 Chloride 102 Carbon Dioxide 27.0 Anion Gap 13.0 BUN 13 Creatinine 1.0 Estimated GFR > 60 Random Glucose 125 H Calcium 9.8 DVT/PE Assessment - Risk for VTE Risk for VTE: No Risk Level: High Risk Assessment Date: 10/26/17 Risk Assessment Time: 17:36 VTE Orders Placed or Will Be Placed: Yes - Active Medicaitons Current Medications: Current Medications Ascorbic Acid (Vitamin C) 500 mg PO DAILY [facility] Last Admin: 11/23/17 09:49 Dose: 500 mg Aspirin (Ecotrin (Ec)) 81 mg PO DAILY [facility] Last Admin: 11/23/17 09:49 Dose: 81 mg Carvedilol (Coreg) 6.25 mg PO BIDWM [facility] Last Admin: 11/23/17 17:25 Dose: 6.25 mg Clotrimazole (Lotrimin Af) 1 gm TP DAILY [facility] Last Admin: 11/23/17 09:54 Dose: 1 gm Collagenase (Santyl) 1 gm TOP DAILY [facility] Last Admin: 11/23/17 09:54 Dose: 1 gm Enoxaparin Sodium (Lovenox) 40 mg SQ DAILY [facility] Last Admin: 11/23/17 09:49 Dose: 40 mg Furosemide (Lasix) 20 mg PO DAILY [facility] Last Admin: 11/23/17 09:49 Dose: 20 mg Loperamide HCl (Immodium) 2 mg PO Q4H PRN PRN Reason: DIARRHEA Last Admin: 11/05/17 09:58 Dose: 2 mg Metformin HCl (Glucophage Ir) 500 mg PO DAILYWM [facility] Last Admin: 11/23/17 08:14 Dose: 500 mg Multivitamins/Minerals (Centrum) 1 tab PO DAILY [facility] Last Admin: 11/23/17 09:49 Dose: 1 tab Ondansetron HCl (Zofran Odt) 4 mg SL Q8H PRN PRN Reason: NAUSEA/VOMITING Last Admin: 11/16/17 06:33 Dose: 4 mg Oxycodone/Acetaminophen (Percocet 7.5-325 Mg Tablet) 1 each PO Q4H PRN PRN Reason: PAIN - MOD TO SEVERE (5-10) Stop: 11/30/17 13:37 Last Admin: 11/23/17 21:42 Dose: 1 each [facility]op[facility]) [facility] Last Admin: 11/23/17 06:14 Dose: 40 mg Psyllium Hydrophilic Mucilloid (Metamucil Pwd) 3.4 gm PO DAILY [facility] Last Admin: 11/23/17 09:49 Dose: 3.4 gm Simvastatin (Zocor) 10 mg PO QHS [facility] Last Admin: 11/23/17 21:40 Dose: 10 mg Tamsulosin HCl (Flomax) 0.4 mg PO DAILY [facility] Last Admin: 11/23/17 09:49 Dose: 0.4 mg Zinc Oxide (Desitin) 28.35 gm TOP DAILY [facility] Last Admin: 11/23/17 09:53 Dose: 28.35 gm Zinc Sulfate (Zinc Sulfate) 220 mg PO BID [facility] Last Admin: 11/23/17 21:39 Dose: 220 mg AMI Plan - Labs Result Diagrams: 11/23/17 06:51 11/23/17 06:51
[2017-11-24] MEDS: OXYCODONE/APAP 7.5MG/325MG TABLET PO PRN ×5 (01:56→22:06)
[2017-11-24] MEDS: PANTOPRAZOLE SODIUM 40 MG TABLET PO SCH (06:02)
[2017-11-24] MEDS: METFORMIN 500 MG TABLET PO SCH (08:15)
[2017-11-24] MEDS: CARVEDILOL 3.125 MG TABLET PO SCH ×2 (08:15→17:52)
[2017-11-24] MEDS: PSYLLIUM HUSK/ASPARTAME 3.4 GM POWD.PACK PO SCH (09:56)
[2017-11-24] MEDS: CLOTRIMAZOLE 1% 30 GM CREAM TP SCH (09:56)
[2017-11-24] MEDS: ZINC OXIDE 28.35 GM TUBE TOP SCH (09:56)
[2017-11-24] MEDS: BIFIDOBACTERIUM INFANTIS 4 MG CAPSULE PO SCH (09:56)
[2017-11-24] MEDS: ASCORBIC ACID 500 MG TAB PO SCH (09:57)
[2017-11-24] MEDS: MULTIVITAMINS/MINERALS TABLET PO SCH (09:57)
[2017-11-24] MEDS: ENOXAPARIN 40 MG/0.4 ML SYR SQ SCH (09:57)
[2017-11-24] MEDS: FUROSEMIDE 20 MG TABLET PO SCH (09:57)
[2017-11-24] MEDS: ASPIRIN 81 MG TABEC PO SCH (09:57)
[2017-11-24] MEDS: TAMSULOSIN HCL 0.4 MG CAP.ER.24H PO SCH (09:57)
[2017-11-24] MEDS: ZINC SULFATE 220 MG CAPSULE PO SCH ×2 (10:34→21:09)
[2017-11-24] MEDS: COLLAGENASE 30 GM TUBE TOP SCH (10:34)
--- NOTE | 2017-11-24 10:52 | Physician Progress Note ---
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 Dressing change being performed by RN during encounter. Pt and RN agreed that the left lower extremity is much improved and that there is less drainage than normal. Pain is better controlled with Percocet q. 4 hours as opposed to q. 6. Nursing Care Plan Problem List Activity Intolerance (Swing Bed) Start: 10/26/17 18: 16 Freq: Status: Active Protocol: Created 10/26/17 18:16 KM (Rec: 10/26/17 18:16 [facility] [id number]) High Risk: Altered Glucose Metabolism Start: 10/27/17 07: 50 Freq: Status: Active Protocol: Created 10/27/17 07:50 JAMES (Rec: 10/27/17 07:50 JAMES [id number]) High Risk: Impaired Skin Integrity Start: 10/27/17 07: 50 Freq: Status: Active Protocol: Created 10/27/17 07:50 JAMES (Rec: 10/27/17 07:50 JAMES [id number]) Impaired Skin Integrity Start: 10/27/17 07: 50 Freq: Status: Active Protocol: Created 10/27/17 07:50 JAMES (Rec: 10/27/17 07:50 JAMES [id number]) Knowledge Deficit (Swing Bed) Start: 10/26/17 18: 16 Freq: Status: Active Protocol: Created 10/26/17 18:16 KM (Rec: 10/26/17 18:16 [facility] [id number]) Knowledge Deficit: Diabetes Mellitus Start: 10/27/17 07: 50 Freq: Status: Active Protocol: Created 10/27/17 07:50 JAMES (Rec: 10/27/17 07:50 JAMES [id number]) Pain (Swing Bed) Start: 10/26/17 18: 16 Freq: Status: Complete Protocol: Created 10/26/17 18:16 KM (Rec: 10/26/17 18:16 [facility] [id number]) Edit Status 11/15/17 23:21 SRP (Rec: 11/15/17 23:21 SRP [id number]) Active=>Complete Skin Integrity, Impaired (Swing Bed) Start: 10/27/17 00: 50 Freq: Status: Active Protocol: Created 10/27/17 00:50 LPR (Rec: 10/27/17 00:50 LPR [id number]) - Subjective Detail Comment: No additional complaints except as noted below Gastrointestinal: Denies: Constipation, Diarrhea Skin: Reports: As per HPI General - Cognitive Patterns Speech: Normal Thought Process: Intact Thought Content: Normal - Communication Select best description of speech pattern: Clear Speech Ability to express ideas and wants: Understood Understanding verbal content: Understands - Mood and Behavior Patterns Appearance: Well Groomed Mood: Normal Attitude: Cooperative Motor Activity: Calm Affect: Appropriate Hallucinations: Denies - Physical Functioning Activity Level: Up as tolerated Turning: Self ad kieran ROM Ability: Within Normal Limits Assistive Devices: 2 Wheel Walker Activity Level Comment: Went out today looking at housing Ambulation Ability: Independent Bed Mobility: Independent Transfer Ability: Independent Bathing Ability: Independent Personal Hygiene: Independent Dressing Ability: Independent Eating (Feeding) Ability: Independent Toileting Ability: Independent Administer Own Medication: Independent Care Ability Comment: needs assistance with wound care - Continence Bowel Pattern: Normal for Patient Bladder Pattern: Normal Meds/Allergies - Allergies Allergies Allergy/AdvReac Type Severity Reaction Status Date / Time silver sulfadiazine Allergy Unverified 10/14/17 15:04 [From Silvadene] - Active Medications Current Medications Ascorbic Acid (Vitamin C) 500 mg PO DAILY [facility] Last Admin: 11/24/17 09:57 Dose: 500 mg Aspirin (Ecotrin (Ec)) 81 mg PO DAILY [facility] Last Admin: 11/24/17 09:57 Dose: 81 mg Carvedilol (Coreg) 6.25 mg PO BIDWM [facility] Last Admin: 11/24/17 08:15 Dose: 6.25 mg Clotrimazole (Lotrimin Af) 1 gm TP DAILY [facility] Last Admin: 11/24/17 09:56 Dose: 30 gm Collagenase (Santyl) 1 gm TOP DAILY [facility] Last Admin: 11/24/17 10:34 Dose: 1 gm Enoxaparin Sodium (Lovenox) 40 mg SQ DAILY [facility] Last Admin: 11/24/17 09:57 Dose: 40 mg Furosemide (Lasix) 20 mg PO DAILY [facility] Last Admin: 11/24/17 09:57 Dose: 20 mg Loperamide HCl (Immodium) 2 mg PO Q4H PRN PRN Reason: DIARRHEA Last Admin: 11/05/17 09:58 Dose: 2 mg Metformin HCl (Glucophage Ir) 500 mg PO DAILYWM [facility] Last Admin: 11/24/17 08:15 Dose: 500 mg Multivitamins/Minerals (Centrum) 1 tab PO DAILY [facility] Last Admin: 11/24/17 09:57 Dose: 1 tab Ondansetron HCl (Zofran Odt) 4 mg SL Q8H PRN PRN Reason: NAUSEA/VOMITING Last Admin: 11/16/17 06:33 Dose: 4 mg Oxycodone/Acetaminophen (Percocet 7.5-325 Mg Tablet) 1 each PO Q4H PRN PRN Reason: PAIN - MOD TO SEVERE (5-10) Stop: 11/30/17 13:37 Last Admin: 11/24/17 06:02 Dose: 1 each Pantoprazole Sodium (Protonix) 40 mg [facility] Last Admin: 11/24/17 06:02 Dose: 40 mg Psyllium Hydrophilic Mucilloid (Metamucil Pwd) 3.4 gm PO DAILY [facility] Last Admin: 11/24/17 09:56 Dose: 3.4 gm Simvastatin (Zocor) 10 mg PO QHS [facility] Last Admin: 11/23/17 21:40 Dose: 10 mg Tamsulosin HCl (Flomax) 0.4 mg PO DAILY [facility] Last Admin: 11/24/17 09:57 Dose: 0.4 mg Zinc Oxide (Desitin) 28.35 gm TOP DAILY [facility] Last Admin: 11/24/17 09:56 Dose: 28.35 gm Zinc Sulfate (Zinc Sulfate) 220 mg PO BID [facility] Last Admin: 11/24/17 10:34 Dose: 220 mg Objective - Vital Signs Vital Signs: Vital Signs - Last 24 Hrs Temp Pulse Resp BP BP Pulse Ox 11/24/17 09:04 97.9 F 123/46 11/24/17 08:00 98.3 F 67 18 110/52 95 11/23/17 20:00 97.9 F 64 20 123/46 95 - Respiratory Respiratory exam: negative: Accessory muscle use - Skin Skin exam: Other (No redness inside or outside of drawn margins on Left Thigh. Serosanguienous drainage to LLE, no s/sx of infection) H&P Results - Labs Result Diagrams: 11/23/17 06:51 11/23/17 06:51 Discharge Potential - Discharge Needs Community Services Used Prior to Admission: None Patient Discharge Plan Description: Return Home Community Services Needed at Discharge: None Discharge Needs Comment: Wound Clinic Plan - Swing Bed Certification Initial Certification Due: 10/26/17 14 Day Re-Cert Due: 11/09/17 44 Day Re-Cert Due: 12/09/17 74 Day Re-Cert Due: 01/08/18 - Detailed Diagnosis and Plan (1) Diabetic ulcer of lower leg Current Visit: No Status: Acute Base Code: E11.622 - TYPE 2 DIABETES MELLITUS WITH OTHER SKIN ULCER; L97.909 - NON-PRS CHRONIC ULC UNSP PRT OF UNSP LOW LEG W UNSP SEVERITY Comment: 11/24/17: -No redness and warmth within or outside of drawn margin areas on Left thigh -Serosanguinous drainage to LLE, RN and Pt report it is markedly less drainage than usual -Continue with Santyl to slough on LLE with daily dressing changes as per wound clinic -Next Wound Clinic visit on 11/28/17 -Recommend Infectious Disease to follow up on pt, Case Management to see if Wound Clinic agrees and can set up at [facility] -Continue Percocet q. 4 hours PRN 11/23/17: -Redness and warmth areas to lateral and medial left thigh marked to evaluate margins -Continue daily wound dressing and topical abx -WBC 7.3 -Monitor redness and warmth, if worsenes, will consider restarting Zyvox and Levaquin and setting up f/u with Infectious Disease -Continue PT/OT -Next wound care visit on 11/28/17 -Percocet changed to Q4H PRN (2) Thrombocytopenia Current Visit: Yes Status: Acute Base Code: D69.6 - THROMBOCYTOPENIA, UNSPECIFIED Comment: 11/24/17: -Continue Lovenox dosing -CBC ordered for 11/30/17 to check platelets 11/23/17: -Lovenox restarted on 11/21/17 -Platelets 139, up from 112 -Continue Lovenox at this time as pt is at high risk of DVT (3) Full code status Current Visit: Yes Status: Acute Base Code: Z78.9 - OTHER SPECIFIED HEALTH STATUS Comment: 11/24/17: Full Code
[2017-11-24] MEDS: SIMVASTATIN 10MG TABLET PO SCH (21:08)
[2017-11-25] MEDS: PANTOPRAZOLE SODIUM 40 MG TABLET PO SCH (06:22)
[2017-11-25] MEDS: OXYCODONE/APAP 7.5MG/325MG TABLET PO PRN ×3 (06:32→17:12)
[2017-11-25] MEDS: METFORMIN 500 MG TABLET PO SCH (08:14)
[2017-11-25] MEDS: CARVEDILOL 3.125 MG TABLET PO SCH ×2 (08:14→17:07)
[2017-11-25] MEDS: ENOXAPARIN 40 MG/0.4 ML SYR SQ SCH (10:11)
[2017-11-25] MEDS: ZINC OXIDE 28.35 GM TUBE TOP SCH (10:11)
[2017-11-25] MEDS: ASPIRIN 81 MG TABEC PO SCH (10:12)
[2017-11-25] MEDS: TAMSULOSIN HCL 0.4 MG CAP.ER.24H PO SCH (10:12)
[2017-11-25] MEDS: MULTIVITAMINS/MINERALS TABLET PO SCH (10:12)
[2017-11-25] MEDS: BIFIDOBACTERIUM INFANTIS 4 MG CAPSULE PO SCH (10:12)
[2017-11-25] MEDS: FUROSEMIDE 20 MG TABLET PO SCH (10:12)
[2017-11-25] MEDS: PSYLLIUM HUSK/ASPARTAME 3.4 GM POWD.PACK PO SCH (10:12)
[2017-11-25] MEDS: ASCORBIC ACID 500 MG TAB PO SCH (10:12)
[2017-11-25] MEDS: CLOTRIMAZOLE 1% 30 GM CREAM TP SCH (12:03)
[2017-11-25] MEDS: COLLAGENASE 30 GM TUBE TOP SCH (12:04)
[2017-11-25] MEDS: ZINC SULFATE 220 MG CAPSULE PO SCH ×2 (12:04→21:22)
[2017-11-25] MEDS: SIMVASTATIN 10MG TABLET PO SCH (21:22)
[2017-11-26] MEDS: PANTOPRAZOLE SODIUM 40 MG TABLET PO SCH (06:06)
[2017-11-26] MEDS: CARVEDILOL 3.125 MG TABLET PO SCH ×2 (07:49→19:15)
[2017-11-26] MEDS: METFORMIN 500 MG TABLET PO SCH (07:49)
[2017-11-26 09:08] LABS: BILIRUBIN,DIRECT 0.3 mg/dL (0-0.3); BILIRUBIN,TOTAL 1.6 mg/dL (0.2-1.0)
[2017-11-26] MEDS: MULTIVITAMINS/MINERALS TABLET PO SCH (09:37)
[2017-11-26] MEDS: BIFIDOBACTERIUM INFANTIS 4 MG CAPSULE PO SCH (09:37)
[2017-11-26] MEDS: TAMSULOSIN HCL 0.4 MG CAP.ER.24H PO SCH (09:37)
[2017-11-26] MEDS: ASPIRIN 81 MG TABEC PO SCH (09:37)
[2017-11-26] MEDS: FUROSEMIDE 20 MG TABLET PO SCH (09:37)
[2017-11-26] MEDS: ZINC SULFATE 220 MG CAPSULE PO SCH ×2 (09:37→21:19)
[2017-11-26] MEDS: ENOXAPARIN 40 MG/0.4 ML SYR SQ SCH (09:38)
[2017-11-26] MEDS: ASCORBIC ACID 500 MG TAB PO SCH (09:38)
[2017-11-26] MEDS: PSYLLIUM HUSK/ASPARTAME 3.4 GM POWD.PACK PO SCH (09:38)
[2017-11-26 10:04] LABS: BASO % 0.1 % (0-6); EOS % 1.5 % (0-6); GRAN % 70.2 % (47-80); HEMATOCRIT 37.7 % (42.0-52.0); HEMOGLOBIN 11.3 gm/dl (14.0-18.0); LYMPH % 16.6 % (16-45); MEAN CELL VOLUME 93.5 fl (81-97); MEAN PLATELET VOLUME 11.1 fl (7.4-10.4); MONO % 11.6 % (0-9); PLATELET COUNT 178 K/uL (130-400); RED BLOOD COUNT 4.03 M/uL (4.40-5.70); RED CELL DISTRIBUTION WIDTH 16.3 % (11.5-14.5); WHITE BLOOD COUNT W/O DIFF 6.8 K/uL (4.2-12.2)
[2017-11-26 10:13] LABS: ALB/GLOB RATIO 1.5 (1.1-1.8); ALBUMIN 3.7 g/dL (4.0-5.0); ALKALINE PHOSPHATASE 64 U/L (40-129); ALT/SGPT 19 U/L (<41); AST/SGOT 16 U/L (10.0-50.0); BLOOD UREA NITROGEN 12 mg/dL (8-23); CREATININE 1.1 mg/dL (0.7-1.2); EST GLOMERULAR FILTRATION RATE > 60 mL/min; GLUCOSE,RANDOM 140 mg/dL (74-109); TOTAL PROTEIN 6.2 g/dL (6.6-8.7)
[2017-11-26] MEDS: CLOTRIMAZOLE 1% 30 GM CREAM TP SCH (14:53)
[2017-11-26] MEDS: ZINC OXIDE 28.35 GM TUBE TOP SCH (14:53)
[2017-11-26] MEDS: COLLAGENASE 30 GM TUBE TOP SCH (14:53)
[2017-11-26] MEDS: IBUPROFEN 400 MG TABLET PO PRN (15:04)
[2017-11-26] MEDS: SIMVASTATIN 10MG TABLET PO SCH (21:19)
[2017-11-27] MEDS: PANTOPRAZOLE SODIUM 40 MG TABLET PO SCH (06:10)
[2017-11-27 06:22] LABS: BASO % 0.2 % (0-6); EOS % 2.3 % (0-6); GRAN % 71.1 % (47-80); HEMATOCRIT 38.3 % (42.0-52.0); HEMOGLOBIN 11.4 gm/dl (14.0-18.0); LYMPH % 15.7 % (16-45); MEAN CELL VOLUME 93.9 fl (81-97); MEAN CORPUSCULAR HEMOGLOBIN 27.9 pg (27-33); MEAN CORPUSCULAR HGB CONC 29.8 g/dl (32-36); MONO % 10.7 % (0-9); PLATELET COUNT 202 K/uL (130-400); RED BLOOD COUNT 4.08 M/uL (4.40-5.70); RED CELL DISTRIBUTION WIDTH 16.5 % (11.5-14.5); WHITE BLOOD COUNT W/O DIFF 6.2 K/uL (4.2-12.2)
[2017-11-27 06:36] LABS: ALB/GLOB RATIO 1.4 (1.1-1.8); ALBUMIN 3.7 g/dL (4.0-5.0); ALKALINE PHOSPHATASE 65 U/L (40-129); ALT/SGPT 16 U/L (<41); AST/SGOT 13 U/L (10.0-50.0); BLOOD UREA NITROGEN 12 mg/dL (8-23); EST GLOMERULAR FILTRATION RATE > 60 mL/min; GLUCOSE,RANDOM 139 mg/dL (74-109); TOTAL PROTEIN 6.3 g/dL (6.6-8.7)
[2017-11-27] MEDS: METFORMIN 500 MG TABLET PO SCH (08:11)
[2017-11-27] MEDS: CARVEDILOL 3.125 MG TABLET PO SCH ×2 (08:12→17:39)
[2017-11-27] MEDS: ASPIRIN 81 MG TABEC PO SCH (10:58)
[2017-11-27] MEDS: ENOXAPARIN 40 MG/0.4 ML SYR SQ SCH (10:58)
[2017-11-27] MEDS: TAMSULOSIN HCL 0.4 MG CAP.ER.24H PO SCH (10:58)
[2017-11-27] MEDS: BIFIDOBACTERIUM INFANTIS 4 MG CAPSULE PO SCH (10:58)
[2017-11-27] MEDS: MULTIVITAMINS/MINERALS TABLET PO SCH (10:59)
[2017-11-27] MEDS: ZINC OXIDE 28.35 GM TUBE TOP SCH (10:59)
[2017-11-27] MEDS: ASCORBIC ACID 500 MG TAB PO SCH (10:59)
[2017-11-27] MEDS: FUROSEMIDE 20 MG TABLET PO SCH (10:59)
[2017-11-27] MEDS: PSYLLIUM HUSK/ASPARTAME 3.4 GM POWD.PACK PO SCH (10:59)
[2017-11-27] MEDS: ZINC SULFATE 220 MG CAPSULE PO SCH ×2 (11:00→21:23)
[2017-11-27] MEDS: CLOTRIMAZOLE 1% 30 GM CREAM TP SCH (14:07)
[2017-11-27] MEDS: COLLAGENASE 30 GM TUBE TOP SCH (14:07)
[2017-11-27] MEDS: IBUPROFEN 400 MG TABLET PO PRN (14:07)
[2017-11-27] MEDS: SIMVASTATIN 10MG TABLET PO SCH (21:22)
[2017-11-28] MEDS: PANTOPRAZOLE SODIUM 40 MG TABLET PO SCH (06:12)
[2017-11-28] MEDS: OXYCODONE/APAP 7.5MG/325MG TABLET PO PRN ×2 (06:59→11:11)
[2017-11-28] MEDS: CARVEDILOL 3.125 MG TABLET PO SCH ×2 (07:58→17:11)
[2017-11-28] MEDS: METFORMIN 500 MG TABLET PO SCH (07:58)
[2017-11-28] MEDS: ENOXAPARIN 40 MG/0.4 ML SYR SQ SCH (11:11)
[2017-11-28] MEDS: MULTIVITAMINS/MINERALS TABLET PO SCH (11:11)
[2017-11-28] MEDS: ASCORBIC ACID 500 MG TAB PO SCH (11:12)
[2017-11-28] MEDS: TAMSULOSIN HCL 0.4 MG CAP.ER.24H PO SCH (11:12)
[2017-11-28] MEDS: ASPIRIN 81 MG TABEC PO SCH (11:13)
[2017-11-28] MEDS: BIFIDOBACTERIUM INFANTIS 4 MG CAPSULE PO SCH (11:13)
[2017-11-28] MEDS: FUROSEMIDE 20 MG TABLET PO SCH (11:14)
[2017-11-28] MEDS: ZINC SULFATE 220 MG CAPSULE PO SCH ×2 (12:00→21:52)
[2017-11-28] MEDS: PSYLLIUM HUSK/ASPARTAME 3.4 GM POWD.PACK PO SCH (12:07)
[2017-11-28] MEDS: ZINC OXIDE 28.35 GM TUBE TOP SCH (13:04)
[2017-11-28] MEDS: CLOTRIMAZOLE 1% 30 GM CREAM TP SCH (13:04)
[2017-11-28] MEDS: COLLAGENASE 30 GM TUBE TOP SCH (13:06)
[2017-11-28] MEDS: IBUPROFEN 400 MG TABLET PO PRN (16:16)
[2017-11-28] MEDS: SIMVASTATIN 10MG TABLET PO SCH (21:52)
[2017-11-29] MEDS: IBUPROFEN 400 MG TABLET PO PRN ×3 (00:32→16:56)
[2017-11-29] MEDS: PANTOPRAZOLE SODIUM 40 MG TABLET PO SCH (06:10)
[2017-11-29] MEDS: METFORMIN 500 MG TABLET PO SCH (08:29)
[2017-11-29] MEDS: CARVEDILOL 3.125 MG TABLET PO SCH ×2 (08:29→16:56)
[2017-11-29] MEDS: ASCORBIC ACID 500 MG TAB PO SCH (09:18)
[2017-11-29] MEDS: ASPIRIN 81 MG TABEC PO SCH (09:18)
[2017-11-29] MEDS: MULTIVITAMINS/MINERALS TABLET PO SCH (09:18)
[2017-11-29] MEDS: TAMSULOSIN HCL 0.4 MG CAP.ER.24H PO SCH (09:18)
[2017-11-29] MEDS: ZINC SULFATE 220 MG CAPSULE PO SCH ×2 (09:18→21:46)
[2017-11-29] MEDS: BIFIDOBACTERIUM INFANTIS 4 MG CAPSULE PO SCH (09:18)
[2017-11-29] MEDS: FUROSEMIDE 20 MG TABLET PO SCH (09:18)
[2017-11-29] MEDS: ENOXAPARIN 40 MG/0.4 ML SYR SQ SCH (09:18)
[2017-11-29] MEDS: PSYLLIUM HUSK/ASPARTAME 3.4 GM POWD.PACK PO SCH (09:19)
[2017-11-29] MEDS: ZINC OXIDE 28.35 GM TUBE TOP SCH (09:19)
[2017-11-29] MEDS: COLLAGENASE 30 GM TUBE TOP SCH (09:19)
[2017-11-29] MEDS: CLOTRIMAZOLE 1% 30 GM CREAM TP SCH (09:19)
[2017-11-29] MEDS: SIMVASTATIN 10MG TABLET PO SCH (21:46)
[2017-11-30] MEDS: IBUPROFEN 400 MG TABLET PO PRN ×3 (01:20→21:13)
[2017-11-30] MEDS: PANTOPRAZOLE SODIUM 40 MG TABLET PO SCH (06:16)
[2017-11-30 06:22] LABS: BASO % 0.2 % (0-6); EOS % 1.6 % (0-6); GRAN % 69.4 % (47-80); HEMOGLOBIN 10.9 gm/dl (14.0-18.0); LYMPH % 17.3 % (16-45); MEAN CELL VOLUME 94.2 fl (81-97); MEAN CORPUSCULAR HEMOGLOBIN 28.5 pg (27-33); MEAN CORPUSCULAR HGB CONC 30.3 g/dl (32-36); MEAN PLATELET VOLUME 10.3 fl (7.4-10.4); MONO % 11.5 % (0-9); PLATELET COUNT 211 K/uL (130-400); RED BLOOD COUNT 3.82 M/uL (4.40-5.70); RED CELL DISTRIBUTION WIDTH 16.7 % (11.5-14.5); WHITE BLOOD COUNT W/O DIFF 6.4 K/uL (4.2-12.2)
[2017-11-30] MEDS: ASPIRIN 81 MG TABEC PO SCH ×2 (08:21→11:44)
[2017-11-30] MEDS: METFORMIN 500 MG TABLET PO SCH (08:21)
[2017-11-30] MEDS: ZINC SULFATE 220 MG CAPSULE PO SCH ×3 (08:21→21:12)
[2017-11-30] MEDS: BIFIDOBACTERIUM INFANTIS 4 MG CAPSULE PO SCH ×2 (08:21→11:44)
[2017-11-30] MEDS: CARVEDILOL 3.125 MG TABLET PO SCH ×2 (08:22→17:22)
[2017-11-30] MEDS: ENOXAPARIN 40 MG/0.4 ML SYR SQ SCH ×2 (08:22→11:45)
[2017-11-30] MEDS: FUROSEMIDE 20 MG TABLET PO SCH ×2 (08:22→11:45)
[2017-11-30] MEDS: MULTIVITAMINS/MINERALS TABLET PO SCH ×2 (08:22→11:44)
[2017-11-30] MEDS: ASCORBIC ACID 500 MG TAB PO SCH ×2 (08:22→11:46)
[2017-11-30] MEDS: TAMSULOSIN HCL 0.4 MG CAP.ER.24H PO SCH ×2 (08:22→11:45)
[2017-11-30] MEDS: ZINC OXIDE 28.35 GM TUBE TOP SCH (11:44)
[2017-11-30] MEDS: CLOTRIMAZOLE 1% 30 GM CREAM TP SCH (11:45)
[2017-11-30] MEDS: PSYLLIUM HUSK/ASPARTAME 3.4 GM POWD.PACK PO SCH (11:46)
[2017-11-30] MEDS: COLLAGENASE 30 GM TUBE TOP SCH (11:46)
[2017-11-30] MEDS: SIMVASTATIN 10MG TABLET PO SCH (21:13)
[2017-12-01] MEDS: IBUPROFEN 400 MG TABLET PO PRN ×3 (05:34→23:57)
[2017-12-01] MEDS: PANTOPRAZOLE SODIUM 40 MG TABLET PO SCH (06:45)
[2017-12-01] MEDS: CARVEDILOL 3.125 MG TABLET PO SCH ×2 (07:47→19:06)
[2017-12-01] MEDS: METFORMIN 500 MG TABLET PO SCH (07:47)
[2017-12-01] MEDS: ASCORBIC ACID 500 MG TAB PO SCH (09:55)
[2017-12-01] MEDS: MULTIVITAMINS/MINERALS TABLET PO SCH (09:55)
[2017-12-01] MEDS: ZINC SULFATE 220 MG CAPSULE PO SCH ×2 (09:55→22:00)
[2017-12-01] MEDS: PSYLLIUM HUSK/ASPARTAME 3.4 GM POWD.PACK PO SCH (09:55)
[2017-12-01] MEDS: BIFIDOBACTERIUM INFANTIS 4 MG CAPSULE PO SCH (09:55)
[2017-12-01] MEDS: ASPIRIN 81 MG TABEC PO SCH (09:56)
[2017-12-01] MEDS: CLOTRIMAZOLE 1% 30 GM CREAM TP SCH (09:56)
[2017-12-01] MEDS: ZINC OXIDE 28.35 GM TUBE TOP SCH (09:56)
[2017-12-01] MEDS: COLLAGENASE 30 GM TUBE TOP SCH (09:56)
[2017-12-01] MEDS: TAMSULOSIN HCL 0.4 MG CAP.ER.24H PO SCH (09:56)
[2017-12-01] MEDS: FUROSEMIDE 20 MG TABLET PO SCH (09:56)
[2017-12-01] MEDS: ENOXAPARIN 40 MG/0.4 ML SYR SQ SCH (09:56)
--- NOTE | 2017-12-01 20:13 | Physician Progress Note ---
Subjective - Date Date of Physician Progress Note: 12/01/17 - Subjective Subjective Comment: Pt states that he is doing well. He says that nurses have been concerned that his weight has been going up and down by 5 lb. He states that this is normal for him and has been the case for since his [place]. He sees cardiology and is due for a follow up but hasn't had a chance to make an appointment with them yet. He states that he doesn't have any SOB from baseline or any orthopnea. He also states that his legs are not more swollen than usual. He states that there is still pain that worsens with wound clinic visits 2/2 to debridement and regular dressing changes but overall his wounds are improving. No other complaints today. Objective - Vital Signs Vital Signs: Vital Signs - Last 24 Hrs Temp Pulse Resp BP BP Pulse Ox 12/01/17 10:13 97.5 F L 112/57 12/01/17 08:00 99.3 F 62 18 127/71 96 - General General Appearance: Alert, Oriented x3, Cooperative, No acute distress Limitations: No limitations - Head Head exam: Atraumatic, Normocephalic, Normal inspection Head exam detail: negative: CSF otorrhea, CSF rhinorrhea, General tenderness, Laceration - Eye Eye exam: Normal appearance. negative: Conjunctival injection, Scleral icterus Pupils: negative: Unequal - ENT ENT exam: Mucous membranes moist Ear exam: Normal external inspection Nasal Exam: Normal inspection Mouth exam: Other (poor dentition) Teeth exam: Dental caries - Neck Neck exam: Normal inspection - Respiratory Respiratory exam: negative: Accessory muscle use - Cardiovascular Cardiovascular Exam: Normal rhythm, Normal heart sounds - GI/Abdominal GI/Abdominal exam: Soft, Normal bowel sounds. negative: Distended, Tenderness - Rectal Rectal exam: Deferred - exam: Deferred - Extremities Extremities exam: Other (RLE exibits small round erythematous lesions with granulation tissue present. LLE difusely erythematous with large areas of granualtion tissue. significantly improved from previous exam.) - Back Back exam: Reports: Normal inspection - Neurological Neurological exam: Oriented X3 - Psychiatric Psychiatric exam: Normal affect, Normal mood - Skin Skin exam: Other (mild jaundice but no scleral icterus) Type of lesion: negative: Abscess Distribution of rash: RLE, LLE Description of rash: Erythematous. negative: Discharge Assessment and Plan - Assessment and Plan (1) Systolic heart failure Current Visit: Yes Status: Acute Qualifiers: Heart failure chronicity: chronic Qualified Code(s): I50.22 - Chronic systolic (congestive) heart failure Base Code: I50.20 - UNSPECIFIED SYSTOLIC (CONGESTIVE) HEART FAILURE Comment: - Pt not SOB from baseline, no evidence of pulmonary edema on exam. - Pt needs to schedule appt with Cardio as recommended, I spoke with him regarding this. - last echo 11/08 showed EF of 35-40%. - He understands this and states that will make an appointment for follow up as cardio recommended. (2) Unconjugated hyperbilirubinemia Current Visit: Yes Status: Acute Base Code: E80.6 - OTHER DISORDERS OF BILIRUBIN METABOLISM Comment: - Noticed that pt was jaundiced on 11/28/17 - He has been asymmptomatic and denies any abdominal pain or jaundice in the past. - Bili has been ranging to mildly elevated from 1.6 ->1.1 ->1.2 -> 1.3, direct bili wnl. Alk phos and AST/ALT normal. - likely hematologic/genetic issue given that the direct bili is normal. - Spoke with Nenita, case managment and she did set the pt up with hematology for evaluation. - If pt becomes further jaundiced get bili levels and do further evaluation, currently the elevation is mild and can be worked up through hematology. (3) Diabetic ulcer of lower leg Current Visit: No Status: Acute Base Code: E11.622 - TYPE 2 DIABETES MELLITUS WITH OTHER SKIN ULCER; L97.909 - NON-PRS CHRONIC ULC UNSP PRT OF UNSP LOW LEG W UNSP SEVERITY Comment: -No redness and warmth within or outside of drawn margin areas on Left thigh -Continued improvement of lesions on the legs b/l -Continue with Santyl to slough on LLE with daily dressing changes as per wound clinic -Continue Percocet q. 4 hours PRN/ ibuprofen 800 Q8 hours PRN for pain control. (4) CKD (chronic kidney disease) Current Visit: Yes Status: Acute Base Code: N18.9 - CHRONIC KIDNEY DISEASE, UNSPECIFIED Comment: - Pt's renal function has returned to normal and GFR > 60 - Lovenox to continue at 40mg SQ daily. (5) HTN (hypertension) Current Visit: Yes Status: Acute Base Code: I10 - ESSENTIAL (PRIMARY) HYPERTENSION Comment: - Continue Coreg as prescribed. (6) HLD (hyperlipidemia) Current Visit: Yes Status: Acute Base Code: E78.5 - HYPERLIPIDEMIA, UNSPECIFIED Comment: - Continue statin as prescribed. (7) Full code status Current Visit: Yes Status: Acute Base Code: Z78.9 - OTHER SPECIFIED HEALTH STATUS Results - Labs Result Diagrams: 11/30/17 06:08 11/27/17 06:05 Labs Last 24 Hours: Laboratory Results - last 24 hr 11/28/17 12/01/17 06:46 11:48 Total Bilirubin 1.30 H Vitamin D 25-Hydroxy 23.1 L 25-OH Vitamin D Total 23.1 25-Hydroxy Vitamin D2 <5.0 DVT/PE Assessment - Risk for VTE Risk for VTE: No Risk Level: High Risk Assessment Date: 10/26/17 Risk Assessment Time: 17:36 VTE Orders Placed or Will Be Placed: Yes - Active Medicaitons Current Medications: Current Medications Ascorbic Acid (Vitamin C) 500 mg PO DAILY [facility] Last Admin: 12/01/17 09:55 Dose: 500 mg Aspirin (Ecotrin (Ec)) 81 mg PO DAILY [facility] Last Admin: 12/01/17 09:56 Dose: 81 mg Carvedilol (Coreg) 6.25 mg PO BIDWM [facility] Last Admin: 12/01/17 19:06 Dose: 6.25 mg Clotrimazole (Lotrimin Af) 1 gm TP DAILY [facility] Last Admin: 12/01/17 09:56 Dose: 1 gm Collagenase (Santyl) 1 gm TOP DAILY [facility] Last Admin: 12/01/17 09:56 Dose: 1 gm Enoxaparin Sodium (Lovenox) 40 mg SQ DAILY [facility] Last Admin: 12/01/17 09:56 Dose: 40 mg Furosemide (Lasix) 20 mg PO DAILY [facility] Last Admin: 12/01/17 09:56 Dose: 20 mg Ibuprofen (Motrin 400mg) 800 mg PO Q8H PRN PRN Reason: PAIN - MILD TO MODERATE (1-7) Last Admin: 12/01/17 15:41 Dose: 800 mg Loperamide HCl (Immodium) 2 mg PO Q4H PRN PRN Reason: DIARRHEA Last Admin: 11/05/17 09:58 Dose: 2 mg Metformin HCl (Glucophage Ir) 500 mg PO DAILYWM [facility] Last Admin: 12/01/17 07:47 Dose: 500 mg Multivitamins/Minerals (Centrum) 1 tab PO DAILY [facility] Last Admin: 12/01/17 09:55 Dose: 1 tab Ondansetron HCl (Zofran Odt) 4 mg SL Q8H PRN PRN Reason: NAUSEA/VOMITING Last Admin: 11/16/17 06:33 Dose: 4 mg Pantoprazole Sodium (Protonix) 40 mg PO DAILYAC [facility] Last Admin: 12/01/17 06:45 Dose: 40 mg Psyllium Hydrophilic Mucilloid (Metamucil Pwd) 3.4 gm PO DAILY [facility] Last Admin: 12/01/17 09:55 Dose: 3.4 gm Simvastatin (Zocor) 10 mg PO QHS [facility] Last Admin: 11/30/17 21:13 Dose: 10 mg Tamsulosin HCl (Flomax) 0.4 mg PO DAILY [facility] Last Admin: 12/01/17 09:56 Dose: 0.4 mg Zinc Oxide (Desitin) 28.35 gm TOP DAILY [facility] Last Admin: 12/01/17 09:56 Dose: 28.35 gm Zinc Sulfate (Zinc Sulfate) 220 mg PO BID [facility] Last Admin: 12/01/17 09:55 Dose: 220 mg AMI Plan - Labs Result Diagrams: 11/30/17 06:08 11/27/17 06:05
[2017-12-01] MEDS: SIMVASTATIN 10MG TABLET PO SCH (21:59)
[2017-12-02] MEDS: PANTOPRAZOLE SODIUM 40 MG TABLET PO SCH (06:00)
[2017-12-02] MEDS: IBUPROFEN 400 MG TABLET PO PRN ×2 (07:33→15:34)
[2017-12-02] MEDS: METFORMIN 500 MG TABLET PO SCH (07:33)
[2017-12-02] MEDS: CARVEDILOL 3.125 MG TABLET PO SCH ×2 (07:34→17:27)
[2017-12-02] MEDS: ENOXAPARIN 40 MG/0.4 ML SYR SQ SCH (10:17)
[2017-12-02] MEDS: MULTIVITAMINS/MINERALS TABLET PO SCH (10:17)
[2017-12-02] MEDS: FUROSEMIDE 20 MG TABLET PO SCH (10:17)
[2017-12-02] MEDS: ASCORBIC ACID 500 MG TAB PO SCH (10:17)
[2017-12-02] MEDS: PSYLLIUM HUSK/ASPARTAME 3.4 GM POWD.PACK PO SCH (10:17)
[2017-12-02] MEDS: ASPIRIN 81 MG TABEC PO SCH (10:17)
[2017-12-02] MEDS: ZINC SULFATE 220 MG CAPSULE PO SCH ×2 (10:17→22:22)
[2017-12-02] MEDS: BIFIDOBACTERIUM INFANTIS 4 MG CAPSULE PO SCH (10:17)
[2017-12-02] MEDS: TAMSULOSIN HCL 0.4 MG CAP.ER.24H PO SCH (10:17)
[2017-12-02] MEDS: ZINC OXIDE 28.35 GM TUBE TOP SCH (17:52)
[2017-12-02] MEDS: CLOTRIMAZOLE 1% 30 GM CREAM TP SCH (17:52)
[2017-12-02] MEDS: COLLAGENASE 30 GM TUBE TOP SCH (17:52)
[2017-12-02] MEDS: SIMVASTATIN 10MG TABLET PO SCH (22:22)
[2017-12-03] MEDS: IBUPROFEN 400 MG TABLET PO PRN ×4 (00:06→23:55)
[2017-12-03] MEDS: PANTOPRAZOLE SODIUM 40 MG TABLET PO SCH (06:17)
[2017-12-03] MEDS: CARVEDILOL 3.125 MG TABLET PO SCH ×2 (08:01→18:20)
[2017-12-03] MEDS: METFORMIN 500 MG TABLET PO SCH (08:01)
[2017-12-03] MEDS: ASPIRIN 81 MG TABEC PO SCH (10:06)
[2017-12-03] MEDS: ENOXAPARIN 40 MG/0.4 ML SYR SQ SCH (10:06)
[2017-12-03] MEDS: TAMSULOSIN HCL 0.4 MG CAP.ER.24H PO SCH (10:07)
[2017-12-03] MEDS: ASCORBIC ACID 500 MG TAB PO SCH (10:07)
[2017-12-03] MEDS: BIFIDOBACTERIUM INFANTIS 4 MG CAPSULE PO SCH (10:07)
[2017-12-03] MEDS: PSYLLIUM HUSK/ASPARTAME 3.4 GM POWD.PACK PO SCH (10:07)
[2017-12-03] MEDS: FUROSEMIDE 20 MG TABLET PO SCH (10:07)
[2017-12-03] MEDS: MULTIVITAMINS/MINERALS TABLET PO SCH (10:35)
[2017-12-03] MEDS: ZINC SULFATE 220 MG CAPSULE PO SCH ×2 (16:11→22:13)
[2017-12-03] MEDS: CLOTRIMAZOLE 1% 30 GM CREAM TP SCH (18:19)
[2017-12-03] MEDS: ZINC OXIDE 28.35 GM TUBE TOP SCH (18:19)
[2017-12-03] MEDS: COLLAGENASE 30 GM TUBE TOP SCH (18:20)
[2017-12-03] MEDS: SIMVASTATIN 10MG TABLET PO SCH (22:13)
[2017-12-04] MEDS: PANTOPRAZOLE SODIUM 40 MG TABLET PO SCH (06:11)
[2017-12-04 06:37] LABS: ALB/GLOB RATIO 1.4 (1.1-1.8); ALBUMIN 3.9 g/dL (4.0-5.0); BILIRUBIN,TOTAL 1.2 mg/dL (0.2-1.0); CREATININE 1.3 mg/dL (0.7-1.2); TOTAL PROTEIN 6.7 g/dL (6.6-8.7)
[2017-12-04] MEDS: CARVEDILOL 3.125 MG TABLET PO SCH ×2 (07:51→17:50)
[2017-12-04] MEDS: IBUPROFEN 400 MG TABLET PO PRN ×3 (07:51→22:56)
[2017-12-04] MEDS: METFORMIN 500 MG TABLET PO SCH (07:52)
[2017-12-04] MEDS: PSYLLIUM HUSK/ASPARTAME 3.4 GM POWD.PACK PO SCH (11:19)
[2017-12-04] MEDS: FUROSEMIDE 20 MG TABLET PO SCH (11:20)
[2017-12-04] MEDS: ASPIRIN 81 MG TABEC PO SCH (11:20)
[2017-12-04] MEDS: ASCORBIC ACID 500 MG TAB PO SCH (11:20)
[2017-12-04] MEDS: BIFIDOBACTERIUM INFANTIS 4 MG CAPSULE PO SCH (11:20)
[2017-12-04] MEDS: MULTIVITAMINS/MINERALS TABLET PO SCH (11:20)
[2017-12-04] MEDS: ZINC SULFATE 220 MG CAPSULE PO SCH ×2 (11:21→22:15)
[2017-12-04] MEDS: ENOXAPARIN 40 MG/0.4 ML SYR SQ SCH (11:21)
[2017-12-04] MEDS: TAMSULOSIN HCL 0.4 MG CAP.ER.24H PO SCH (11:24)
--- NOTE | 2017-12-04 16:46 | Physician Progress Note ---
Subjective - Date Date of Progress Note: 12/04/17 - Admitting Diagnosis Diagnosis: Deconditioning due to MRSA infection of wound, chronic kidney disease , diabetes - Subjective Nursing Care Plan Problem List Activity Intolerance (Swing Bed) Start: 10/26/17 18: 16 Freq: Status: Active Protocol: Created 10/26/17 18:16 KMC (Rec: 10/26/17 18:16 KMC [id number]) High Risk: Altered Glucose Metabolism Start: 10/27/17 07: 50 Freq: Status: Complete Protocol: Created 10/27/17 07:50 JAMES (Rec: 10/27/17 07:50 JAMES [id number]) Edit Status 11/24/17 15:49 HMF (Rec: 11/24/17 15:49 HMF [id number]) Active=>Complete High Risk: Impaired Skin Integrity Start: 10/27/17 07: 50 Freq: Status: Active Protocol: Created 10/27/17 07:50 JAMES (Rec: 10/27/17 07:50 JAMES [id number]) Impaired Skin Integrity Start: 10/27/17 07: 50 Freq: Status: Active Protocol: Created 10/27/17 07:50 JAMES (Rec: 10/27/17 07:50 JAMES [id number]) Knowledge Deficit (Swing Bed) Start: 10/26/17 18: 16 Freq: Status: Active Protocol: Created 10/26/17 18:16 KM (Rec: 10/26/17 18:16 KM [id number]) Knowledge Deficit: Diabetes Mellitus Start: 10/27/17 07: 50 Freq: Status: Active Protocol: Created 10/27/17 07:50 JAMES (Rec: 10/27/17 07:50 JAMES [id number]) Pain (Swing Bed) Start: 10/26/17 18: 16 Freq: Status: Complete Protocol: Created 10/26/17 18:16 KMC (Rec: 10/26/17 18:16 KM [id number]) Edit Status 11/15/17 23:21 SRP (Rec: 11/15/17 23:21 SRP [id number]) Active=>Complete Skin Integrity, Impaired (Swing Bed) Start: 10/27/17 00: 50 Freq: Status: Active Protocol: Created 10/27/17 00:50 LPR (Rec: 10/27/17 00:50 LPR [id number]) Subjective: Pt reports that he is feeling well. Happy with progress of leg wounds. Sees wound clinic again on December 06. - Subjective Detail Constitutional: Denies: Chills, Fever, Malaise ENT: Denies: Congestion Respiratory: Denies: Cough, Wheezes Cardiovascular: Denies: Chest pain Endocrine: Denies: Fatigue Gastrointestinal: Denies: Abdominal pain, Constipation, Diarrhea, Nausea, Vomiting Skin: Reports: Change in color ("They say I am yellow") General - Cognitive Patterns Speech: Normal Thought Process: Intact Thought Content: Normal - Communication Select best description of speech pattern: Clear Speech Ability to express ideas and wants: Understood Understanding verbal content: Understands - Mood and Behavior Patterns Appearance: Well Groomed Mood: Normal Attitude: Cooperative Motor Activity: Calm Affect: Appropriate Hallucinations: Denies - Physical Functioning Activity Level: Up as tolerated Turning: Self ad ikeran ROM Ability: Within Normal Limits Assistive Devices: 2 Wheel Walker Activity Level Comment: Went out today looking at housing Ambulation Ability: Independent Bed Mobility: Independent Transfer Ability: Independent Bathing Ability: Independent Personal Hygiene: Independent Dressing Ability: Independent Eating (Feeding) Ability: Independent Toileting Ability: Independent Administer Own Medication: Independent Care Ability Comment: needs assistance with wound care. - Continence Bowel Pattern: Normal for Patient Bladder Pattern: Normal Meds/Allergies - Allergies Allergies Allergy/AdvReac Type Severity Reaction Status Date / Time silver sulfadiazine Allergy Unverified 10/14/17 15:04 [From [facility]] - Active Medications Current Medications Ascorbic Acid (Vitamin C) 500 mg PO DAILY [facility] Last Admin: 12/04/17 11:20 Dose: 500 mg Aspirin (Ecotrin (Ec)) 81 mg PO DAILY [facility] Last Admin: 12/04/17 11:20 Dose: 81 mg Carvedilol (Coreg) 6.25 mg PO BIDWM [facility] Last Admin: 12/04/17 07:51 Dose: 6.25 mg Clotrimazole (Lotrimin Af) 1 gm TP DAILY [facility] Last Admin: 12/03/17 18:19 Dose: 1 gm Collagenase (Santyl) 1 gm TOP DAILY [facility] Last Admin: 12/03/17 18:20 Dose: 1 gm Enoxaparin Sodium (Lovenox) 40 mg SQ DAILY [facility] Last Admin: 12/04/17 11:21 Dose: 40 mg Furosemide (Lasix) 20 mg PO DAILY [facility] Last Admin: 12/04/17 11:20 Dose: 20 mg Ibuprofen (Motrin 400mg) 800 mg PO Q8H PRN PRN Reason: PAIN - MILD TO MODERATE (1-7) Last Admin: 12/04/17 15:55 Dose: 800 mg Loperamide HCl (Immodium) 2 mg PO Q4H PRN PRN Reason: DIARRHEA Last Admin: 11/05/17 09:58 Dose: 2 mg Metformin HCl (Glucophage Ir) 500 mg PO DAILYWM [facility] Last Admin: 12/04/17 07:52 Dose: 500 mg Multivitamins/Minerals (Centrum) 1 tab PO DAILY [facility] Last Admin: 12/04/17 11:20 Dose: 1 tab Ondansetron HCl (Zofran Odt) 4 mg SL Q8H PRN PRN Reason: NAUSEA/VOMITING Last Admin: 11/16/17 06:33 Dose: 4 mg [facility] Last Admin: 12/04/17 06:11 Dose: 40 mg Psyllium Hydrophilic Mucilloid (Metamucil Pwd) 3.4 gm PO DAILY [facility] Last Admin: 12/04/17 11:19 Dose: 3.4 gm Simvastatin (Zocor) 10 mg PO QHS [facility] Last Admin: 12/03/17 22:13 Dose: 10 mg Tamsulosin HCl (Flomax) 0.4 mg PO DAILY [facility] Last Admin: 12/04/17 11:24 Dose: 0.4 mg Zinc Oxide (Desitin) 28.35 gm TOP DAILY [facility] Last Admin: 12/03/17 18:19 Dose: 28.35 gm Zinc Sulfate (Zinc Sulfate) 220 mg PO BID [facility] Last Admin: 12/04/17 11:21 Dose: 220 mg Objective - Vital Signs Vital Signs: Vital Signs - Last 24 Hrs Temp Pulse Resp BP BP Pulse Ox 12/04/17 07:44 97.5 F L 66 18 148/78 96 12/03/17 20:00 97.6 F 64 16 122/71 94 L - General General Appearance: Alert, Oriented x3, No acute distress - Respiratory Respiratory exam: negative: Accessory muscle use - Extremities Extremities exam: Pedal edema - Skin Skin exam: Dry, Other (BLE lesions, no s/sx of infection, facial jaundice) H&P Results - Labs Result Diagrams: 11/30/17 06:08 12/04/17 06:00 Labs Last 24 Hours: Laboratory Results - last 24 hr 12/04/17 06:00 Sodium 144 Potassium 4.5 Chloride 105 Carbon Dioxide 26.0 Anion Gap 13.0 BUN 16 Creatinine 1.3 H Estimated GFR 58 Random Glucose 136 H Calcium 9.8 Total Bilirubin 1.20 H AST 14 ALT 18 Alkaline Phosphatase 67 Total Protein 6.7 Albumin 3.9 L Globulin 2.8 Albumin/Globulin Ratio 1.4 Discharge Potential - Discharge Needs Community Services Used Prior to Admission: None Patient Discharge Plan Description: Return Home Community Services Needed at Discharge: None Discharge Needs Comment: Wound Clinic Plan - Swing Bed Certification Initial Certification Due: 10/26/17 14 Day Re-Cert Due: 11/09/17 44 Day Re-Cert Due: 12/09/17 74 Day Re-Cert Due: 01/08/18 - Detailed Diagnosis and Plan (1) Diabetic ulcer of lower leg Current Visit: Yes Status: Acute Base Code: E11.622 - TYPE 2 DIABETES MELLITUS WITH OTHER SKIN ULCER; L97.909 - NON-PRS CHRONIC ULC UNSP PRT OF UNSP LOW LEG W UNSP SEVERITY Comment: 12/04/17: -No redness and warmth within or outside of drawn margin areas on Left thigh -Continued improvement of lesions on the legs bilaterally -Continue with Santyl to slough on LLE with daily dressing changes as per wound clinic -Continue Percocet q. 4 hours PRN/ ibuprofen 800 Q8 hours PRN for pain control. -Wound Clinic appointment on 12/06/17 (2) Full code status Current Visit: Yes Status: Acute Base Code: Z78.9 - OTHER SPECIFIED HEALTH STATUS Comment: 12/04/17: -Pt is a Full Code (3) Unconjugated hyperbilirubinemia Current Visit: Yes Status: Acute Base Code: E80.6 - OTHER DISORDERS OF BILIRUBIN METABOLISM Comment: 12/04/17: - Jaundice continues - He has been asymmptomatic and denies any abdominal pain or jaundice in the past. - Bili has been ranging to mildly elevated from 1.6 ->1.1 ->1.2 -> 1.3, direct bili wnl. Alk phos and AST/ALT normal. - likely hematologic/genetic issue given that the direct bili is normal. - Hematology appointment pending - If pt becomes further jaundiced get bili levels and do further evaluation, currently the elevation is mild and can be worked up through hematology.
[2017-12-04] MEDS: ZINC OXIDE 28.35 GM TUBE TOP SCH (17:17)
[2017-12-04] MEDS: CLOTRIMAZOLE 1% 30 GM CREAM TP SCH (17:18)
[2017-12-04] MEDS: COLLAGENASE 30 GM TUBE TOP SCH (17:18)
[2017-12-04] MEDS: SIMVASTATIN 10MG TABLET PO SCH (22:15)
[2017-12-05] MEDS: IBUPROFEN 400 MG TABLET PO PRN ×3 (05:44→22:14)
[2017-12-05] MEDS: BIFIDOBACTERIUM INFANTIS 4 MG CAPSULE PO SCH (12:06)
[2017-12-05] MEDS: FUROSEMIDE 20 MG TABLET PO SCH (12:07)
[2017-12-05] MEDS: ASPIRIN 81 MG TABEC PO SCH (12:07)
[2017-12-05] MEDS: TAMSULOSIN HCL 0.4 MG CAP.ER.24H PO SCH (12:08)
[2017-12-05] MEDS: MULTIVITAMINS/MINERALS TABLET PO SCH (12:08)
[2017-12-05] MEDS: ASCORBIC ACID 500 MG TAB PO SCH (12:08)
[2017-12-05] MEDS: ENOXAPARIN 40 MG/0.4 ML SYR SQ SCH (12:09)
[2017-12-05] MEDS: PSYLLIUM HUSK/ASPARTAME 3.4 GM POWD.PACK PO SCH (12:10)
[2017-12-05] MEDS: ZINC SULFATE 220 MG CAPSULE PO SCH ×2 (12:10→22:14)
[2017-12-05] MEDS: METFORMIN 500 MG TABLET PO SCH (12:12)
[2017-12-05] MEDS: CARVEDILOL 3.125 MG TABLET PO SCH ×2 (12:13→18:24)
[2017-12-05] MEDS: PANTOPRAZOLE SODIUM 40 MG TABLET PO SCH (12:13)
[2017-12-05] MEDS: COLLAGENASE 30 GM TUBE TOP SCH (18:19)
[2017-12-05] MEDS: ZINC OXIDE 28.35 GM TUBE TOP SCH (18:19)
[2017-12-05] MEDS: CLOTRIMAZOLE 1% 30 GM CREAM TP SCH (18:19)
[2017-12-05] MEDS: SIMVASTATIN 10MG TABLET PO SCH (22:14)
[2017-12-06] MEDS: IBUPROFEN 400 MG TABLET PO PRN ×3 (05:52→22:00)
[2017-12-06] MEDS: PANTOPRAZOLE SODIUM 40 MG TABLET PO SCH (06:54)
[2017-12-06] MEDS: CARVEDILOL 3.125 MG TABLET PO SCH ×2 (08:05→17:42)
[2017-12-06] MEDS: METFORMIN 500 MG TABLET PO SCH (08:05)
[2017-12-06] MEDS: MULTIVITAMINS/MINERALS TABLET PO SCH (12:47)
[2017-12-06] MEDS: TAMSULOSIN HCL 0.4 MG CAP.ER.24H PO SCH (12:47)
[2017-12-06] MEDS: ENOXAPARIN 40 MG/0.4 ML SYR SQ SCH (12:47)
[2017-12-06] MEDS: BIFIDOBACTERIUM INFANTIS 4 MG CAPSULE PO SCH (12:47)
[2017-12-06] MEDS: FUROSEMIDE 20 MG TABLET PO SCH (12:48)
[2017-12-06] MEDS: ASCORBIC ACID 500 MG TAB PO SCH (12:48)
[2017-12-06] MEDS: ASPIRIN 81 MG TABEC PO SCH (12:48)
[2017-12-06] MEDS: PSYLLIUM HUSK/ASPARTAME 3.4 GM POWD.PACK PO SCH (12:49)
[2017-12-06] MEDS: ZINC SULFATE 220 MG CAPSULE PO SCH ×2 (12:49→22:01)
[2017-12-06] MEDS: COLLAGENASE 30 GM TUBE TOP SCH (14:28)
[2017-12-06] MEDS: ZINC OXIDE 28.35 GM TUBE TOP SCH (14:28)
[2017-12-06] MEDS: CLOTRIMAZOLE 1% 30 GM CREAM TP SCH (14:29)
[2017-12-06] MEDS: SIMVASTATIN 10MG TABLET PO SCH (22:01)
[2017-12-07] MEDS: PANTOPRAZOLE SODIUM 40 MG TABLET PO SCH (06:04)
[2017-12-07] MEDS: IBUPROFEN 400 MG TABLET PO PRN ×3 (06:04→22:09)
[2017-12-07] MEDS: METFORMIN 500 MG TABLET PO SCH (07:42)
[2017-12-07] MEDS: CARVEDILOL 3.125 MG TABLET PO SCH ×2 (07:43→16:46)
[2017-12-07] MEDS: ENOXAPARIN 40 MG/0.4 ML SYR SQ SCH (09:38)
[2017-12-07] MEDS: ASCORBIC ACID 500 MG TAB PO SCH (09:39)
[2017-12-07] MEDS: FUROSEMIDE 20 MG TABLET PO SCH (09:39)
[2017-12-07] MEDS: TAMSULOSIN HCL 0.4 MG CAP.ER.24H PO SCH (09:39)
[2017-12-07] MEDS: ASPIRIN 81 MG TABEC PO SCH (09:39)
[2017-12-07] MEDS: PSYLLIUM HUSK/ASPARTAME 3.4 GM POWD.PACK PO SCH (09:39)
[2017-12-07] MEDS: MULTIVITAMINS/MINERALS TABLET PO SCH (09:39)
[2017-12-07] MEDS: ZINC SULFATE 220 MG CAPSULE PO SCH ×2 (09:39→21:38)
[2017-12-07] MEDS: BIFIDOBACTERIUM INFANTIS 4 MG CAPSULE PO SCH (09:39)
[2017-12-07] MEDS: CLOTRIMAZOLE 1% 30 GM CREAM TP SCH (15:39)
[2017-12-07] MEDS: NYSTATIN 15 GM TUBE TOP SCH (15:39)
[2017-12-07] MEDS: ZINC OXIDE 28.35 GM TUBE TOP SCH (15:39)
[2017-12-07] MEDS: MUPIROCIN OINT 22 GM TUBE TOP SCH (15:39)
[2017-12-07] MEDS: COLLAGENASE 30 GM TUBE TOP SCH (15:41)
[2017-12-07] MEDS: SIMVASTATIN 10MG TABLET PO SCH (21:38)
[2017-12-08] MEDS: IBUPROFEN 400 MG TABLET PO PRN ×3 (05:58→22:06)
[2017-12-08] MEDS: PANTOPRAZOLE SODIUM 40 MG TABLET PO SCH (06:00)
[2017-12-08] MEDS: METFORMIN 500 MG TABLET PO SCH (08:45)
[2017-12-08] MEDS: CARVEDILOL 3.125 MG TABLET PO SCH ×2 (08:45→19:05)
[2017-12-08] MEDS: MULTIVITAMINS/MINERALS TABLET PO SCH (09:29)
[2017-12-08] MEDS: ASPIRIN 81 MG TABEC PO SCH (09:29)
[2017-12-08] MEDS: BIFIDOBACTERIUM INFANTIS 4 MG CAPSULE PO SCH (09:29)
[2017-12-08] MEDS: TAMSULOSIN HCL 0.4 MG CAP.ER.24H PO SCH (09:29)
[2017-12-08] MEDS: ENOXAPARIN 40 MG/0.4 ML SYR SQ SCH (09:29)
[2017-12-08] MEDS: PSYLLIUM HUSK/ASPARTAME 3.4 GM POWD.PACK PO SCH (09:29)
[2017-12-08] MEDS: FUROSEMIDE 20 MG TABLET PO SCH (09:29)
[2017-12-08] MEDS: ASCORBIC ACID 500 MG TAB PO SCH (09:29)
[2017-12-08] MEDS: ZINC SULFATE 220 MG CAPSULE PO SCH ×2 (09:31→22:06)
[2017-12-08] MEDS: CLOTRIMAZOLE 1% 30 GM CREAM TP SCH (16:25)
[2017-12-08] MEDS: MUPIROCIN OINT 22 GM TUBE TOP SCH (16:25)
[2017-12-08] MEDS: ZINC OXIDE 28.35 GM TUBE TOP SCH (16:25)
[2017-12-08] MEDS: NYSTATIN 15 GM TUBE TOP SCH (16:26)
[2017-12-08] MEDS: SIMVASTATIN 10MG TABLET PO SCH (22:05)
[2017-12-09] MEDS: IBUPROFEN 400 MG TABLET PO PRN ×3 (06:00→21:59)
[2017-12-09] MEDS: PANTOPRAZOLE SODIUM 40 MG TABLET PO SCH (06:00)
[2017-12-09] MEDS: CARVEDILOL 3.125 MG TABLET PO SCH ×2 (08:11→18:07)
[2017-12-09] MEDS: METFORMIN 500 MG TABLET PO SCH (08:11)
--- NOTE | 2017-12-09 09:19 | Swing Bed Certification/Recert ---
Initial Certification Due: 10/26/17 14 Day Re-Cert Due: 11/09/17 44 Day Re-Cert Due: 12/09/17 74 Day Re-Cert Due: 01/08/18 CERTIFICATION 3 CERTIFICATION OF PATIENT ADMISSION Required at time of admission. Due: 10/26/17 I certify that SNF services are required to be given on an inpatient basis because of the above named patient's need for shelter care on a continuing basis for the condition(s) for which he/she was receiving inpatient hospital services prior to his/her transfer to the SNF. The patient's current needs for skilled care includes: [daily dressing changes to right lower leg, BID dressing changes to left lower leg] Shanelle Ortiz, N.P. 11/12/17 The patient still requires daily wound care and management for his leg wounds. He is progressing as expected. Pt. continues to need daily bilateral lower leg dressing changes and PT/OT for deconditioning
[2017-12-09] MEDS: ENOXAPARIN 40 MG/0.4 ML SYR SQ SCH (10:24)
[2017-12-09] MEDS: PSYLLIUM HUSK/ASPARTAME 3.4 GM POWD.PACK PO SCH (10:24)
[2017-12-09] MEDS: BIFIDOBACTERIUM INFANTIS 4 MG CAPSULE PO SCH (10:25)
[2017-12-09] MEDS: TAMSULOSIN HCL 0.4 MG CAP.ER.24H PO SCH (10:25)
[2017-12-09] MEDS: MULTIVITAMINS/MINERALS TABLET PO SCH (10:25)
[2017-12-09] MEDS: FUROSEMIDE 20 MG TABLET PO SCH (10:25)
[2017-12-09] MEDS: ASCORBIC ACID 500 MG TAB PO SCH (10:25)
[2017-12-09] MEDS: ASPIRIN 81 MG TABEC PO SCH (10:25)
[2017-12-09] MEDS: ZINC SULFATE 220 MG CAPSULE PO SCH ×2 (10:29→21:14)
[2017-12-09] MEDS: CLOTRIMAZOLE 1% 30 GM CREAM TP SCH (16:28)
[2017-12-09] MEDS: NYSTATIN 15 GM TUBE TOP SCH (16:28)
[2017-12-09] MEDS: MUPIROCIN OINT 22 GM TUBE TOP SCH (16:28)
[2017-12-09] MEDS: ZINC OXIDE 28.35 GM TUBE TOP SCH (16:28)
[2017-12-09] MEDS: SIMVASTATIN 10MG TABLET PO SCH (21:14)
[2017-12-10] MEDS: IBUPROFEN 400 MG TABLET PO PRN ×3 (06:00→21:56)
[2017-12-10] MEDS: PANTOPRAZOLE SODIUM 40 MG TABLET PO SCH (06:00)
[2017-12-10] MEDS: CARVEDILOL 3.125 MG TABLET PO SCH ×2 (07:51→19:02)
[2017-12-10] MEDS: METFORMIN 500 MG TABLET PO SCH (07:51)
[2017-12-10] MEDS: ASPIRIN 81 MG TABEC PO SCH (09:15)
[2017-12-10] MEDS: ENOXAPARIN 40 MG/0.4 ML SYR SQ SCH (09:15)
[2017-12-10] MEDS: TAMSULOSIN HCL 0.4 MG CAP.ER.24H PO SCH (09:15)
[2017-12-10] MEDS: ASCORBIC ACID 500 MG TAB PO SCH (09:15)
[2017-12-10] MEDS: MULTIVITAMINS/MINERALS TABLET PO SCH (09:15)
[2017-12-10] MEDS: PSYLLIUM HUSK/ASPARTAME 3.4 GM POWD.PACK PO SCH (09:15)
[2017-12-10] MEDS: BIFIDOBACTERIUM INFANTIS 4 MG CAPSULE PO SCH (09:15)
[2017-12-10] MEDS: FUROSEMIDE 20 MG TABLET PO SCH (09:15)
[2017-12-10] MEDS: ZINC OXIDE 28.35 GM TUBE TOP SCH (09:16)
[2017-12-10] MEDS: MUPIROCIN OINT 22 GM TUBE TOP SCH (09:16)
[2017-12-10] MEDS: CLOTRIMAZOLE 1% 30 GM CREAM TP SCH (09:17)
[2017-12-10] MEDS: NYSTATIN 15 GM TUBE TOP SCH (09:18)
[2017-12-10] MEDS: ZINC SULFATE 220 MG CAPSULE PO SCH ×2 (09:20→21:03)
[2017-12-10] MEDS: SIMVASTATIN 10MG TABLET PO SCH (21:03)
[2017-12-11] MEDS: PANTOPRAZOLE SODIUM 40 MG TABLET PO SCH (06:09)
[2017-12-11] MEDS: IBUPROFEN 400 MG TABLET PO PRN ×3 (06:09→22:22)
[2017-12-11] MEDS: METFORMIN 500 MG TABLET PO SCH (07:50)
[2017-12-11] MEDS: CARVEDILOL 3.125 MG TABLET PO SCH ×2 (07:50→17:52)
[2017-12-11] MEDS: ZINC SULFATE 220 MG CAPSULE PO SCH ×2 (09:14→21:04)
[2017-12-11] MEDS: MULTIVITAMINS/MINERALS TABLET PO SCH (09:14)
[2017-12-11] MEDS: BIFIDOBACTERIUM INFANTIS 4 MG CAPSULE PO SCH (09:14)
[2017-12-11] MEDS: PSYLLIUM HUSK/ASPARTAME 3.4 GM POWD.PACK PO SCH (09:15)
[2017-12-11] MEDS: ASCORBIC ACID 500 MG TAB PO SCH (09:15)
[2017-12-11] MEDS: ASPIRIN 81 MG TABEC PO SCH (09:15)
[2017-12-11] MEDS: MUPIROCIN OINT 22 GM TUBE TOP SCH (09:15)
[2017-12-11] MEDS: ENOXAPARIN 40 MG/0.4 ML SYR SQ SCH (09:15)
[2017-12-11] MEDS: TAMSULOSIN HCL 0.4 MG CAP.ER.24H PO SCH (09:15)
[2017-12-11] MEDS: FUROSEMIDE 20 MG TABLET PO SCH (09:15)
[2017-12-11] MEDS: CLOTRIMAZOLE 1% 30 GM CREAM TP SCH (09:16)
[2017-12-11] MEDS: ZINC OXIDE 28.35 GM TUBE TOP SCH (09:16)
[2017-12-11] MEDS: NYSTATIN 15 GM TUBE TOP SCH (09:17)
--- NOTE | 2017-12-11 10:13 | Physician Progress Note ---
Subjective - Date Date of Progress Note: 12/11/17 - Admitting Diagnosis Diagnosis: Deconditioning due to MRSA infection of wound, chronic kidney disease , diabetes - Subjective Events since last encounter: Pt. reports that he is feeling well. He is satisfied with the progress of his bilateral leg wounds. He saw wound clinic on 12/06 and he continues to require daily dressing changes. Nursing Care Plan Problem List Activity Intolerance (Swing Bed) Start: 10/26/17 18: 16 Freq: Status: Active Protocol: Created 10/26/17 18:16 KM (Rec: 10/26/17 18:16 [facility] [place] [id number]) High Risk: Altered Glucose Metabolism Start: 10/27/17 07: 50 Freq: Status: Complete Protocol: Created 10/27/17 07:50 JAMES (Rec: 10/27/17 07:50 JAMES [id number]) Edit Status 11/24/17 15:49 HMF (Rec: 11/24/17 15:49 HMF [id number]) Active=>Complete High Risk: Impaired Skin Integrity Start: 10/27/17 07: 50 Freq: Status: Active Protocol: Created 10/27/17 07:50 JAMES (Rec: 10/27/17 07:50 JAMES [id number]) Impaired Skin Integrity Start: 10/27/17 07: 50 Freq: Status: Active Protocol: Created 10/27/17 07:50 JAMES (Rec: 10/27/17 07:50 JAMES [id number]) Knowledge Deficit (Swing Bed) Start: 10/26/17 18: 16 Freq: Status: Active Protocol: Created 10/26/17 18:16 KM (Rec: 10/26/17 18:16 [facility] [place] [id number]) Knowledge Deficit: Diabetes Mellitus Start: 10/27/17 07: 50 Freq: Status: Active Protocol: Created 10/27/17 07:50 JAMES (Rec: 10/27/17 07:50 JAMES [id number]) Pain (Swing Bed) Start: 10/26/17 18: 16 Freq: Status: Complete Protocol: Created 10/26/17 18:16 KM (Rec: 10/26/17 18:16 KM [id number]) Edit Status 09/25/18 23:21 SRP (Rec: 11/15/17 23:21 SRP [id number]) Active=>Complete Skin Integrity, Impaired (Swing Bed) Start: 10/27/17 00: 50 Freq: Status: Active Protocol: Created 10/27/17 00:50 LPR (Rec: 10/27/17 00:50 LPR [id number]) General - Cognitive Patterns Speech: Normal Thought Process: Intact Thought Content: Normal - Communication Select best description of speech pattern: Clear Speech Ability to express ideas and wants: Understood Understanding verbal content: Understands - Mood and Behavior Patterns Appearance: Well Groomed Mood: Normal Attitude: Cooperative Motor Activity: Calm Affect: Appropriate Hallucinations: Denies - Physical Functioning Activity Level: Up as tolerated Turning: Self ad kieran ROM Ability: Moves all extremities Assistive Devices: 2 Wheel Walker Activity Level Comment: Went out today to outpt apt at [facility] Ambulation Ability: Independent Bed Mobility: Independent Transfer Ability: Independent Bathing Ability: Independent Personal Hygiene: Independent Dressing Ability: Independent Eating (Feeding) Ability: Independent Toileting Ability: Independent Administer Own Medication: Independent Care Ability Comment: Needs to have BLE dressings changed daily. - Continence Bowel Pattern: Normal for Patient Bladder Pattern: Normal Meds/Allergies - Allergies Allergies Allergy/AdvReac Type Severity Reaction Status Date / Time silver sulfadiazine Allergy Unverified 10/14/17 15:04 [From Silvadene] - Active Medications Current Medications Ascorbic Acid (Vitamin C) 500 mg PO DAILY [facility] Last Admin: 12/11/17 09:15 Dose: 500 mg Aspirin (Ecotrin (Ec)) 81 mg PO DAILY [facility] Last Admin: 12/11/17 09:15 Dose: 81 mg Carvedilol (Coreg) 6.25 mg PO BIDWM [facility] Last Admin: 12/11/17 07:50 Dose: 6.25 mg Clotrimazole (Lotrimin Af) 1 gm TP DAILY [facility] Last Admin: 12/11/17 09:16 Dose: 1 gm Enoxaparin Sodium (Lovenox) 40 mg SQ DAILY [facility] Last Admin: 12/11/17 09:15 Dose: 40 mg Furosemide (Lasix) 20 mg PO DAILY [facility] Last Admin: 12/11/17 09:15 Dose: 20 mg Ibuprofen (Motrin 400mg) 800 mg PO Q8H PRN PRN Reason: PAIN - MILD TO MODERATE (1-7) Last Admin: 12/11/17 06:09 Dose: 800 mg Loperamide HCl (Immodium) 2 mg PO Q4H PRN PRN Reason: DIARRHEA Last Admin: 11/05/17 09:58 Dose: 2 mg Metformin HCl (Glucophage Ir) 500 mg PO DAILYWM [facility] Last Admin: 12/11/17 07:50 Dose: 500 mg Multivitamins/Minerals (Centrum) 1 tab PO DAILY [facility] Last Admin: 12/11/17 09:14 Dose: 1 tab Mupirocin (Bactroban) 22 gm TOP DAILY [facility] Last Admin: 12/11/17 09:15 Dose: 22 gm Nystatin () 15 gm TOP DAILY [facility] Last Admin: 12/11/17 09:17 Dose: 15 gm Ondansetron HCl (Zofran Odt) 4 mg SL Q8H PRN PRN Reason: NAUSEA/VOMITING Last Admin: 11/16/17 06:33 Dose: 4 mg Pantoprazole Sodium (Protonix) 40 mg PO DAILYAC [facility] Last Admin: 12/11/17 06:09 Dose: 40 mg Psyllium Hydrophilic Mucilloid (Metamucil Pwd) 3.4 gm PO DAILY [facility] Last Admin: 12/11/17 09:15 Dose: 3.4 gm Simvastatin (Zocor) 10 mg PO QHS [facility] Last Admin: 12/10/17 21:03 Dose: 10 mg Tamsulosin HCl (Flomax) 0.4 mg PO DAILY [facility] Last Admin: 12/11/17 09:15 Dose: 0.4 mg Zinc Oxide (Desitin) 28.35 gm TOP DAILY [facility] Last Admin: 12/11/17 09:16 Dose: 28.35 gm Zinc Sulfate (Zinc Sulfate) 220 mg PO BID [facility] Last Admin: 12/11/17 09:14 Dose: 220 mg Objective - Vital Signs Vital Signs: Vital Signs - Last 24 Hrs Temp Pulse Resp BP Pulse Ox 12/11/17 08:00 98.0 F 75 18 132/60 97 12/10/17 20:00 97.8 F 70 20 132/52 96 - General General Appearance: Alert, Oriented x3, No acute distress Limitations: No limitations - Head Head exam: Atraumatic, Normocephalic, Normal inspection Head exam detail: negative: CSF otorrhea, CSF rhinorrhea, General tenderness, Laceration - Eye Eye exam: Normal appearance. negative: Conjunctival injection, Scleral icterus Pupils: negative: Unequal - ENT ENT exam: Mucous membranes moist Ear exam: Normal external inspection Nasal Exam: Normal inspection Mouth exam: Other (poor dentition) Teeth exam: Dental caries - Neck Neck exam: Normal inspection - Respiratory Respiratory exam: negative: Accessory muscle use - Cardiovascular Cardiovascular Exam: Normal rhythm, Normal heart sounds Peripheral Pulses: 2+: Radial (R), Radial (L) - GI/Abdominal GI/Abdominal exam: Soft, Normal bowel sounds. negative: Distended, Tenderness - Rectal Rectal exam: Deferred - exam: Deferred - Extremities Extremities exam: Pedal edema - Back Back exam: Reports: Normal inspection - Neurological Neurological exam: Oriented X3 - Psychiatric Psychiatric exam: Normal affect, Normal mood - Skin Skin exam: Dry, Other (BLE lesions, no s/sx of infection, facial jaundice) Type of lesion: negative: Abscess Distribution of rash: RLE, LLE Description of rash: Erythematous. negative: Discharge H&P Results - Labs Result Diagrams: 11/30/17 06:08 12/04/17 06:00 Discharge Potential - Discharge Needs Community Services Used Prior to Admission: None Patient Discharge Plan Description: Return Home Community Services Needed at Discharge: None Discharge Needs Comment: Wound Clinic Plan - Swing Bed Certification Initial Certification Due: 10/26/17 14 Day Re-Cert Due: 11/09/17 44 Day Re-Cert Due: 12/09/17 74 Day Re-Cert Due: 01/08/18 - Detailed Diagnosis and Plan (1) Physical deconditioning Current Visit: Yes Status: Acute Base Code: R53.81 - OTHER MALAISE Comment : 12/11/17: -deconditioning secondary to bilateral diabetic leg wounds -continue PT/OT M-F for strength/balance (2) Diabetic ulcer of lower leg Current Visit: Yes Status: Acute Base Code: E11.622 - TYPE 2 DIABETES MELLITUS WITH OTHER SKIN ULCER; L97.909 - NON-PRS CHRONIC ULC UNSP PRT OF UNSP LOW LEG W UNSP SEVERITY Comment: 12/11/17: -No redness and warmth within or outside of drawn margin areas on Left thigh -Continued improvement of lesions on the legs bilaterally, dressing changes as per wound clinic -Continue Percocet q. 4 hours PRN/ ibuprofen 800 Q8 hours PRN for pain control (3) Unconjugated hyperbilirubinemia Current Visit: Yes Status: Acute Base Code: E80.6 - OTHER DISORDERS OF BILIRUBIN METABOLISM Comment: 12/11/17: - Jaundice continues - He has been asymmptomatic and denies any abdominal pain or jaundice in the past. - Bili has been ranging to mildly elevated from 1.6 ->1.1 ->1.2 -> 1.3, direct bili wnl. Alk phos and AST/ALT normal. - likely hematologic/genetic issue given that the direct bili is normal- hematology was consulted, will not see pt. with normal direct bili, will continue to monitor - If pt becomes further jaundiced get bili levels and do further evaluation, currently the elevation is mild (4) Full code status Current Visit: Yes Status: Acute Base Code: Z78.9 - OTHER SPECIFIED HEALTH STATUS Comment: 12/11/17: -Pt is a Full Code
[2017-12-11] MEDS: SIMVASTATIN 10MG TABLET PO SCH (21:04)
[2017-12-12] MEDS: PANTOPRAZOLE SODIUM 40 MG TABLET PO SCH (06:01)
[2017-12-12] MEDS: IBUPROFEN 400 MG TABLET PO PRN ×3 (06:01→22:03)
[2017-12-12 06:48] LABS: BASO % 0.1 % (0-6); EOS % 2.7 % (0-6); GRAN % 67.7 % (47-80); HEMATOCRIT 43.4 % (42.0-52.0); HEMOGLOBIN 12.9 gm/dl (14.0-18.0); LYMPH % 18.3 % (16-45); MEAN CELL VOLUME 94.8 fl (81-97); MEAN CORPUSCULAR HGB CONC 29.7 g/dl (32-36); MEAN PLATELET VOLUME 10.8 fl (7.4-10.4); MONO % 11.2 % (0-9); PLATELET COUNT 175 K/uL (130-400); RED BLOOD COUNT 4.58 M/uL (4.40-5.70); RED CELL DISTRIBUTION WIDTH 16.8 % (11.5-14.5); WHITE BLOOD COUNT W/O DIFF 6.8 K/uL (4.2-12.2)
[2017-12-12 07:01] LABS: MEAN CORPUSCULAR HEMOGLOBIN 28.1 pg (27-33)
[2017-12-12 07:05] LABS: ALB/GLOB RATIO 1.4 (1.1-1.8); ALBUMIN 3.8 g/dL (4.0-5.0); ALKALINE PHOSPHATASE 70 U/L (40-129); ALT/SGPT 17 U/L (<41); AST/SGOT 16 U/L (10.0-50.0); BLOOD UREA NITROGEN 19 mg/dL (8-23); CREATININE 1.2 mg/dL (0.7-1.2); EST GLOMERULAR FILTRATION RATE > 60 mL/min; GLUCOSE,RANDOM 123 mg/dL (74-109); TOTAL PROTEIN 6.6 g/dL (6.6-8.7)
[2017-12-12] MEDS: PSYLLIUM HUSK/ASPARTAME 3.4 GM POWD.PACK PO SCH (10:47)
[2017-12-12] MEDS: ASPIRIN 81 MG TABEC PO SCH (10:48)
[2017-12-12] MEDS: MULTIVITAMINS/MINERALS TABLET PO SCH (10:48)
[2017-12-12] MEDS: ASCORBIC ACID 500 MG TAB PO SCH (10:48)
[2017-12-12] MEDS: BIFIDOBACTERIUM INFANTIS 4 MG CAPSULE PO SCH (10:48)
[2017-12-12] MEDS: TAMSULOSIN HCL 0.4 MG CAP.ER.24H PO SCH (10:48)
[2017-12-12] MEDS: FUROSEMIDE 20 MG TABLET PO SCH (10:48)
[2017-12-12] MEDS: CARVEDILOL 3.125 MG TABLET PO SCH ×2 (10:48→17:33)
[2017-12-12] MEDS: METFORMIN 500 MG TABLET PO SCH (10:48)
[2017-12-12] MEDS: NYSTATIN 15 GM TUBE TOP SCH (10:49)
[2017-12-12] MEDS: ENOXAPARIN 40 MG/0.4 ML SYR SQ SCH (10:49)
[2017-12-12] MEDS: CLOTRIMAZOLE 1% 30 GM CREAM TP SCH (10:49)
[2017-12-12] MEDS: MUPIROCIN OINT 22 GM TUBE TOP SCH (10:49)
[2017-12-12] MEDS: ZINC OXIDE 28.35 GM TUBE TOP SCH (10:49)
[2017-12-12] MEDS: ZINC SULFATE 220 MG CAPSULE PO SCH ×2 (10:50→22:02)
[2017-12-12] MEDS: SIMVASTATIN 10MG TABLET PO SCH (22:02)
[2017-12-13] MEDS: IBUPROFEN 400 MG TABLET PO PRN ×3 (06:11→22:19)
[2017-12-13] MEDS: PANTOPRAZOLE SODIUM 40 MG TABLET PO SCH (06:11)
[2017-12-13] MEDS: METFORMIN 500 MG TABLET PO SCH (08:48)
[2017-12-13] MEDS: CARVEDILOL 3.125 MG TABLET PO SCH ×2 (08:48→17:08)
[2017-12-13] MEDS: ASCORBIC ACID 500 MG TAB PO SCH (09:29)
[2017-12-13] MEDS: ASPIRIN 81 MG TABEC PO SCH (09:29)
[2017-12-13] MEDS: BIFIDOBACTERIUM INFANTIS 4 MG CAPSULE PO SCH (09:29)
[2017-12-13] MEDS: TAMSULOSIN HCL 0.4 MG CAP.ER.24H PO SCH (09:29)
[2017-12-13] MEDS: FUROSEMIDE 20 MG TABLET PO SCH (09:29)
[2017-12-13] MEDS: ZINC SULFATE 220 MG CAPSULE PO SCH ×2 (09:29→22:19)
[2017-12-13] MEDS: MULTIVITAMINS/MINERALS TABLET PO SCH (09:29)
[2017-12-13] MEDS: PSYLLIUM HUSK/ASPARTAME 3.4 GM POWD.PACK PO SCH (09:29)
[2017-12-13] MEDS: ENOXAPARIN 40 MG/0.4 ML SYR SQ SCH (09:29)
[2017-12-13] MEDS: MUPIROCIN OINT 22 GM TUBE TOP SCH (16:43)
[2017-12-13] MEDS: CLOTRIMAZOLE 1% 30 GM CREAM TP SCH (16:43)
[2017-12-13] MEDS: NYSTATIN 15 GM TUBE TOP SCH (16:43)
[2017-12-13] MEDS: ZINC OXIDE 28.35 GM TUBE TOP SCH (16:43)
[2017-12-13] MEDS: SIMVASTATIN 10MG TABLET PO SCH (22:19)
[2017-12-14] MEDS: PANTOPRAZOLE SODIUM 40 MG TABLET PO SCH (06:05)
[2017-12-14] MEDS: IBUPROFEN 400 MG TABLET PO PRN ×3 (06:05→21:56)
[2017-12-14] MEDS: CARVEDILOL 3.125 MG TABLET PO SCH ×2 (07:43→17:34)
[2017-12-14] MEDS: METFORMIN 500 MG TABLET PO SCH (07:43)
[2017-12-14] MEDS: ZINC SULFATE 220 MG CAPSULE PO SCH ×2 (09:31→21:55)
[2017-12-14] MEDS: PSYLLIUM HUSK/ASPARTAME 3.4 GM POWD.PACK PO SCH (09:31)
[2017-12-14] MEDS: ENOXAPARIN 40 MG/0.4 ML SYR SQ SCH (09:31)
[2017-12-14] MEDS: TAMSULOSIN HCL 0.4 MG CAP.ER.24H PO SCH (09:31)
[2017-12-14] MEDS: BIFIDOBACTERIUM INFANTIS 4 MG CAPSULE PO SCH (09:31)
[2017-12-14] MEDS: ASPIRIN 81 MG TABEC PO SCH (09:31)
[2017-12-14] MEDS: FUROSEMIDE 20 MG TABLET PO SCH (09:31)
[2017-12-14] MEDS: MULTIVITAMINS/MINERALS TABLET PO SCH (09:31)
[2017-12-14] MEDS: ASCORBIC ACID 500 MG TAB PO SCH (09:31)
[2017-12-14] MEDS: MUPIROCIN OINT 22 GM TUBE TOP SCH (17:28)
[2017-12-14] MEDS: ZINC OXIDE 28.35 GM TUBE TOP SCH (17:28)
[2017-12-14] MEDS: CLOTRIMAZOLE 1% 30 GM CREAM TP SCH (17:29)
[2017-12-14] MEDS: NYSTATIN 15 GM TUBE TOP SCH (17:29)
[2017-12-14] MEDS: SIMVASTATIN 10MG TABLET PO SCH (21:55)
[2017-12-15] MEDS: IBUPROFEN 400 MG TABLET PO PRN ×3 (06:02→21:59)
[2017-12-15] MEDS: PANTOPRAZOLE SODIUM 40 MG TABLET PO SCH (06:02)
[2017-12-15] MEDS: METFORMIN 500 MG TABLET PO SCH (08:06)
[2017-12-15] MEDS: CARVEDILOL 3.125 MG TABLET PO SCH ×2 (08:07→18:30)
[2017-12-15] MEDS: ASPIRIN 81 MG TABEC PO SCH (10:08)
[2017-12-15] MEDS: FUROSEMIDE 20 MG TABLET PO SCH (10:08)
[2017-12-15] MEDS: TAMSULOSIN HCL 0.4 MG CAP.ER.24H PO SCH (10:08)
[2017-12-15] MEDS: BIFIDOBACTERIUM INFANTIS 4 MG CAPSULE PO SCH (10:08)
[2017-12-15] MEDS: ASCORBIC ACID 500 MG TAB PO SCH (10:08)
[2017-12-15] MEDS: MULTIVITAMINS/MINERALS TABLET PO SCH (10:08)
[2017-12-15] MEDS: PSYLLIUM HUSK/ASPARTAME 3.4 GM POWD.PACK PO SCH (10:08)
[2017-12-15] MEDS: ENOXAPARIN 40 MG/0.4 ML SYR SQ SCH (10:11)
[2017-12-15] MEDS: ZINC SULFATE 220 MG CAPSULE PO SCH ×2 (10:12→22:00)
[2017-12-15] MEDS: CLOTRIMAZOLE 1% 30 GM CREAM TP SCH (19:07)
[2017-12-15] MEDS: MUPIROCIN OINT 22 GM TUBE TOP SCH (19:07)
[2017-12-15] MEDS: ZINC OXIDE 28.35 GM TUBE TOP SCH (19:07)
[2017-12-15] MEDS: NYSTATIN 15 GM TUBE TOP SCH (19:07)
[2017-12-15] MEDS: SIMVASTATIN 10MG TABLET PO SCH (22:00)
[2017-12-16] MEDS: IBUPROFEN 400 MG TABLET PO PRN ×3 (05:59→21:52)
[2017-12-16] MEDS: PANTOPRAZOLE SODIUM 40 MG TABLET PO SCH (06:36)
[2017-12-16] MEDS: METFORMIN 500 MG TABLET PO SCH (08:10)
[2017-12-16] MEDS: CARVEDILOL 3.125 MG TABLET PO SCH ×2 (08:10→17:54)
[2017-12-16] MEDS: BIFIDOBACTERIUM INFANTIS 4 MG CAPSULE PO SCH (10:48)
[2017-12-16] MEDS: MULTIVITAMINS/MINERALS TABLET PO SCH (10:48)
[2017-12-16] MEDS: ZINC OXIDE 28.35 GM TUBE TOP SCH (10:48)
[2017-12-16] MEDS: MUPIROCIN OINT 22 GM TUBE TOP SCH (10:48)
[2017-12-16] MEDS: CLOTRIMAZOLE 1% 30 GM CREAM TP SCH (10:49)
[2017-12-16] MEDS: ENOXAPARIN 40 MG/0.4 ML SYR SQ SCH (10:49)
[2017-12-16] MEDS: NYSTATIN 15 GM TUBE TOP SCH (10:49)
[2017-12-16] MEDS: PSYLLIUM HUSK/ASPARTAME 3.4 GM POWD.PACK PO SCH (10:49)
[2017-12-16] MEDS: ASPIRIN 81 MG TABEC PO SCH (10:49)
[2017-12-16] MEDS: ZINC SULFATE 220 MG CAPSULE PO SCH ×2 (10:49→21:53)
[2017-12-16] MEDS: FUROSEMIDE 20 MG TABLET PO SCH ×2 (10:49→17:54)
[2017-12-16] MEDS: TAMSULOSIN HCL 0.4 MG CAP.ER.24H PO SCH (10:49)
[2017-12-16] MEDS: ASCORBIC ACID 500 MG TAB PO SCH (10:49)
--- NOTE | 2017-12-16 17:34 | Physician Progress Note ---
Subjective - Date Date of Physician Progress Note: 12/16/17 - Subjective Subjective Comment: The patient is sitting in the bedside chair as usual and has not immediate complaint. He reports shortness of breath with exertion and continued weeping of his legs. AAOx3, no acute distress. Vitals: BP: 142/80 HR:62 RR: 18 T: 97.1 Sats on RA: 92L Location: Lower extremity Severity scale (1-10): 5 Quality: Aching Consistency: Constant Improves with: Medication Associated symptoms: Denies other symptoms Objective - Vital Signs Vital Signs: Vital Signs - Last 24 Hrs Temp Pulse Resp BP Pulse Ox 12/16/17 08:00 97.1 F L 62 18 142/80 92 L 12/15/17 20:00 98.1 F 72 16 134/72 92 L - General General Appearance: Alert, Oriented x3, No acute distress Limitations: No limitations - Head Head exam: Atraumatic, Normocephalic, Normal inspection Head exam detail: negative: CSF otorrhea, CSF rhinorrhea, General tenderness, Laceration - Eye Eye exam: Normal appearance. negative: Conjunctival injection, Scleral icterus Pupils: negative: Unequal - ENT ENT exam: Mucous membranes moist Ear exam: Normal external inspection Nasal Exam: Normal inspection Mouth exam: Other (poor dentition) Teeth exam: Dental caries - Neck Neck exam: Normal inspection - Respiratory Respiratory exam: negative: Accessory muscle use - Cardiovascular Cardiovascular Exam: Normal rhythm, Normal heart sounds Peripheral Pulses: 2+: Radial (R), Radial (L) - GI/Abdominal GI/Abdominal exam: Soft, Normal bowel sounds. negative: Distended, Tenderness - Rectal Rectal exam: Deferred - exam: Deferred - Extremities Extremities exam: Pedal edema, Other (healing ulcers of bilateral lower ext with extension to proximal tibia/distal femur) - Back Back exam: Reports: Normal inspection - Neurological Neurological exam: Oriented X3 - Psychiatric Psychiatric exam: Normal affect, Normal mood - Skin Skin exam: Dry, Other (BLE lesions, no s/sx of infection, facial jaundice) Type of lesion: negative: Abscess Distribution of rash: RLE, LLE Description of rash: Erythematous. negative: Discharge Assessment and Plan - Assessment and Plan (1) Diabetic ulcer of lower leg Current Visit: Yes Status: Acute Base Code: E11.622 - TYPE 2 DIABETES MELLITUS WITH OTHER SKIN ULCER; L97.909 - NON-PRS CHRONIC ULC UNSP PRT OF UNSP LOW LEG W UNSP SEVERITY Comment: 12/16/17: - Bilateral lower ext leg wounds improving with decreased wound weeping. - +2 pitting edema, localized to bilateral ankles. - On Percocet q. 4 hours PRN/ ibuprofen 800 Q8 hours PRN for pain control (2) Diabetes mellitus, type II Current Visit: No Status: Acute Qualifiers: Diabetes mellitus mcc insulin use: without mcc use Base Code: E11.9 - TYPE 2 DIABETES MELLITUS WITHOUT COMPLICATIONS Comment: 12/16/17: - Hba1c 7.4% - Metformin 500mg QD - POC AcHS, ADA diet. (3) CKD stage 3 due to type 2 diabetes mellitus Current Visit: No Status: Acute Base Code: E11.22 - TYPE 2 DIABETES MELLITUS W DIABETIC CHRONIC KIDNEY DISEASE; N18.3 - CHRONIC KIDNEY DISEASE, STAGE 3 (MODERATE) Comment: 12/16/17: - EGFR >60, Bun/Cr: 19/1.2 - repeat electrolyte panel q3 days, on metformin, and Lasix 20mg BID x 2 days then resume 20mg QD. (4) DVT prophylaxis Current Visit: No Status: Acute Base Code: [id number] - Comment: 12/16/17: - Pt high risk of DVT - Resume lovenox 40mg QD. Concern for HIT with decline in platelets. CBC ordered for monitoring. - Patient encouraged frequent ambulation in room (5) Full code status Current Visit: Yes Status: Acute Base Code: Z78.9 - OTHER SPECIFIED HEALTH STATUS Comment: 12/16/17: -Pt is a Full Code Results - Labs Result Diagrams: 12/12/17 06:11 12/12/17 06:11 DVT/PE Assessment - Risk for VTE Risk for VTE: No Risk Level: High Risk Assessment Date: 10/26/17 Risk Assessment Time: 17:36 VTE Orders Placed or Will Be Placed: Yes - Active Medicaitons Current Medications: Current Medications Ascorbic Acid (Vitamin C) 500 mg PO DAILY [facility] Last Admin: 12/16/17 10:49 Dose: 500 mg Aspirin (Ecotrin (Ec)) 81 mg PO DAILY [facility] Last Admin: 12/16/17 10:49 Dose: 81 mg Carvedilol (Coreg) 6.25 mg PO BIDWM [facility] Last Admin: 12/16/17 08:10 Dose: 6.25 mg Clotrimazole (Lotrimin Af) 1 gm TP DAILY [facility] Last Admin: 12/16/17 10:49 Dose: 1 gm Enoxaparin Sodium (Lovenox) 40 mg SQ DAILY [facility] Last Admin: 12/16/17 10:49 Dose: 40 mg Furosemide (Lasix) 20 mg PO DAILY [facility] Last Admin: 12/16/17 10:49 Dose: 20 mg Furosemide (Lasix) 20 mg PO BIDDIUR [facility] Stop: 12/17/17 23:59 Ibuprofen (Motrin 400mg) 800 mg PO Q8H PRN PRN Reason: PAIN - MILD TO MODERATE (1-7) Last Admin: 12/16/17 14:05 Dose: 800 mg Loperamide HCl (Immodium) 2 mg PO Q4H PRN PRN Reason: DIARRHEA Last Admin: 11/05/17 09:58 Dose: 2 mg Metformin HCl (Glucophage Ir) 500 mg PO DAILYWM [facility] Last Admin: 12/16/17 08:10 Dose: 500 mg Multivitamins/Minerals (Centrum) 1 tab PO DAILY [facility] Last Admin: 12/16/17 10:48 Dose: 1 tab Mupirocin (Bactroban) 22 gm TOP DAILY [facility] Last Admin: 12/16/17 10:48 Dose: 22 gm Nystatin () 15 gm TOP DAILY [facility] Last Admin: 12/16/17 10:49 Dose: 15 gm Ondansetron HCl (Zofran Odt) 4 mg SL Q8H PRN PRN Reason: NAUSEA/VOMITING Last Admin: 11/16/17 06:33 Dose: 4 mg Pantoprazole Sodium (Protonix) 40 mg PO DAILYAC [facility] Last Admin: 12/16/17 06:36 Dose: 40 mg Psyllium Hydrophilic Mucilloid (Metamucil Pwd) 3.4 gm PO DAILY [facility] Last Admin: 12/16/17 10:49 Dose: 3.4 gm Simvastatin (Zocor) 10 mg PO QHS [facility] Last Admin: 12/15/17 22:00 Dose: 10 mg Tamsulosin HCl (Flomax) 0.4 mg PO DAILY [facility] Last Admin: 12/16/17 10:49 Dose: 0.4 mg Zinc Oxide (Desitin) 28.35 gm TOP DAILY [facility] Last Admin: 12/16/17 10:48 Dose: 28.35 gm Zinc Sulfate (Zinc Sulfate) 220 mg PO BID [facility] Last Admin: 12/16/17 10:49 Dose: 220 mg [facility] Plan - Labs Result Diagrams: 12/12/17 06:11 12/12/17 06:11
[2017-12-16] MEDS: SIMVASTATIN 10MG TABLET PO SCH (21:52)
[2017-12-17] MEDS: IBUPROFEN 400 MG TABLET PO PRN ×3 (06:02→21:43)
[2017-12-17] MEDS: PANTOPRAZOLE SODIUM 40 MG TABLET PO SCH (06:02)
[2017-12-17] MEDS: CARVEDILOL 3.125 MG TABLET PO SCH ×2 (08:37→16:54)
[2017-12-17] MEDS: METFORMIN 500 MG TABLET PO SCH (08:37)
[2017-12-17] MEDS: FUROSEMIDE 20 MG TABLET PO SCH ×3 (09:42→16:54)
[2017-12-17] MEDS: MULTIVITAMINS/MINERALS TABLET PO SCH (09:42)
[2017-12-17] MEDS: TAMSULOSIN HCL 0.4 MG CAP.ER.24H PO SCH (09:42)
[2017-12-17] MEDS: CLOTRIMAZOLE 1% 30 GM CREAM TP SCH (09:42)
[2017-12-17] MEDS: ASPIRIN 81 MG TABEC PO SCH (09:42)
[2017-12-17] MEDS: BIFIDOBACTERIUM INFANTIS 4 MG CAPSULE PO SCH (09:42)
[2017-12-17] MEDS: ASCORBIC ACID 500 MG TAB PO SCH (09:42)
[2017-12-17] MEDS: PSYLLIUM HUSK/ASPARTAME 3.4 GM POWD.PACK PO SCH (09:42)
[2017-12-17] MEDS: ENOXAPARIN 40 MG/0.4 ML SYR SQ SCH (09:42)
[2017-12-17] MEDS: MUPIROCIN OINT 22 GM TUBE TOP SCH (09:43)
[2017-12-17] MEDS: NYSTATIN 15 GM TUBE TOP SCH (09:43)
[2017-12-17] MEDS: ZINC SULFATE 220 MG CAPSULE PO SCH ×2 (09:43→21:43)
[2017-12-17] MEDS: ZINC OXIDE 28.35 GM TUBE TOP SCH (09:43)
[2017-12-17] MEDS: SIMVASTATIN 10MG TABLET PO SCH (21:43)
[2017-12-18] MEDS: PANTOPRAZOLE SODIUM 40 MG TABLET PO SCH (06:23)
[2017-12-18] MEDS: IBUPROFEN 400 MG TABLET PO PRN ×3 (06:23→21:49)
[2017-12-18] MEDS: TAMSULOSIN HCL 0.4 MG CAP.ER.24H PO SCH (09:37)
[2017-12-18] MEDS: CARVEDILOL 3.125 MG TABLET PO SCH ×2 (09:37→17:41)
[2017-12-18] MEDS: PSYLLIUM HUSK/ASPARTAME 3.4 GM POWD.PACK PO SCH (09:37)
[2017-12-18] MEDS: ASCORBIC ACID 500 MG TAB PO SCH (09:37)
[2017-12-18] MEDS: METFORMIN 500 MG TABLET PO SCH (09:37)
[2017-12-18] MEDS: BIFIDOBACTERIUM INFANTIS 4 MG CAPSULE PO SCH (09:37)
[2017-12-18] MEDS: ASPIRIN 81 MG TABEC PO SCH (09:37)
[2017-12-18] MEDS: MULTIVITAMINS/MINERALS TABLET PO SCH (09:37)
[2017-12-18] MEDS: ENOXAPARIN 40 MG/0.4 ML SYR SQ SCH (09:38)
[2017-12-18] MEDS: FUROSEMIDE 20 MG TABLET PO SCH (09:38)
[2017-12-18] MEDS: ZINC SULFATE 220 MG CAPSULE PO SCH ×2 (09:39→21:50)
[2017-12-18] MEDS: ZINC OXIDE 28.35 GM TUBE TOP SCH (15:26)
[2017-12-18] MEDS: NYSTATIN 15 GM TUBE TOP SCH (15:26)
[2017-12-18] MEDS: CLOTRIMAZOLE 1% 30 GM CREAM TP SCH (15:26)
[2017-12-18] MEDS: MUPIROCIN OINT 22 GM TUBE TOP SCH (15:26)
[2017-12-18] MEDS: SIMVASTATIN 10MG TABLET PO SCH (21:50)
[2017-12-19] MEDS: IBUPROFEN 400 MG TABLET PO PRN ×3 (06:02→21:46)
[2017-12-19] MEDS: PANTOPRAZOLE SODIUM 40 MG TABLET PO SCH (06:02)
[2017-12-19] MEDS: METFORMIN 500 MG TABLET PO SCH (08:13)
[2017-12-19] MEDS: CARVEDILOL 3.125 MG TABLET PO SCH ×2 (08:13→18:21)
[2017-12-19] MEDS ORDERED: FUROSEMIDE 20 MG TABLET PO ONE (08:53)
[2017-12-19] MEDS: FUROSEMIDE 40 MG TABLET PO SCH (10:27)
[2017-12-19] MEDS: FUROSEMIDE 20 MG TABLET PO ONE (10:28)
[2017-12-19] MEDS: BIFIDOBACTERIUM INFANTIS 4 MG CAPSULE PO SCH (10:29)
[2017-12-19] MEDS: PSYLLIUM HUSK/ASPARTAME 3.4 GM POWD.PACK PO SCH (10:29)
[2017-12-19] MEDS: ENOXAPARIN 40 MG/0.4 ML SYR SQ SCH (10:29)
[2017-12-19] MEDS: ASPIRIN 81 MG TABEC PO SCH (10:29)
[2017-12-19] MEDS: ASCORBIC ACID 500 MG TAB PO SCH (10:29)
[2017-12-19] MEDS: MULTIVITAMINS/MINERALS TABLET PO SCH (10:29)
[2017-12-19] MEDS: TAMSULOSIN HCL 0.4 MG CAP.ER.24H PO SCH (10:29)
[2017-12-19] MEDS: ZINC OXIDE 28.35 GM TUBE TOP SCH (10:31)
[2017-12-19] MEDS: MUPIROCIN OINT 22 GM TUBE TOP SCH (10:31)
[2017-12-19] MEDS: CLOTRIMAZOLE 1% 30 GM CREAM TP SCH (10:31)
[2017-12-19] MEDS: NYSTATIN 15 GM TUBE TOP SCH (10:32)
[2017-12-19] MEDS: ZINC SULFATE 220 MG CAPSULE PO SCH ×2 (10:32→21:46)
[2017-12-19] MEDS: SIMVASTATIN 10MG TABLET PO SCH (21:46)
[2017-12-20] MEDS: IBUPROFEN 400 MG TABLET PO PRN ×3 (05:57→23:01)
[2017-12-20] MEDS: PANTOPRAZOLE SODIUM 40 MG TABLET PO SCH ×2 (05:58→06:00)
[2017-12-20] MEDS: METFORMIN 500 MG TABLET PO SCH (07:43)
[2017-12-20] MEDS: CARVEDILOL 3.125 MG TABLET PO SCH ×2 (07:43→18:57)
[2017-12-20 08:05] LABS: CREATININE 1.3 mg/dL (0.7-1.2)
[2017-12-20] MEDS: BIFIDOBACTERIUM INFANTIS 4 MG CAPSULE PO SCH (15:15)
[2017-12-20] MEDS: ENOXAPARIN 40 MG/0.4 ML SYR SQ SCH (15:15)
[2017-12-20] MEDS: TAMSULOSIN HCL 0.4 MG CAP.ER.24H PO SCH (15:16)
[2017-12-20] MEDS: MULTIVITAMINS/MINERALS TABLET PO SCH (15:16)
[2017-12-20] MEDS: PSYLLIUM HUSK/ASPARTAME 3.4 GM POWD.PACK PO SCH (15:16)
[2017-12-20] MEDS: ASCORBIC ACID 500 MG TAB PO SCH (15:16)
[2017-12-20] MEDS: ASPIRIN 81 MG TABEC PO SCH (15:16)
[2017-12-20] MEDS: FUROSEMIDE 40 MG TABLET PO SCH (15:16)
[2017-12-20] MEDS: MUPIROCIN OINT 22 GM TUBE TOP SCH (15:17)
[2017-12-20] MEDS: ZINC SULFATE 220 MG CAPSULE PO SCH ×2 (15:18→22:03)
[2017-12-20] MEDS: CLOTRIMAZOLE 1% 30 GM CREAM TP SCH (15:18)
[2017-12-20] MEDS: ZINC OXIDE 28.35 GM TUBE TOP SCH (15:18)
[2017-12-20] MEDS: NYSTATIN 15 GM TUBE TOP SCH (15:18)
[2017-12-20] MEDS: SIMVASTATIN 10MG TABLET PO SCH (22:05)
[2017-12-21] MEDS: PANTOPRAZOLE SODIUM 40 MG TABLET PO SCH (06:27)
[2017-12-21] MEDS: IBUPROFEN 400 MG TABLET PO PRN ×3 (07:00→23:44)
[2017-12-21] MEDS: METFORMIN 500 MG TABLET PO SCH (08:58)
[2017-12-21] MEDS: CARVEDILOL 3.125 MG TABLET PO SCH ×2 (08:58→18:28)
[2017-12-21] MEDS: MULTIVITAMINS/MINERALS TABLET PO SCH (09:49)
[2017-12-21] MEDS: PSYLLIUM HUSK/ASPARTAME 3.4 GM POWD.PACK PO SCH (09:49)
[2017-12-21] MEDS: TAMSULOSIN HCL 0.4 MG CAP.ER.24H PO SCH (09:49)
[2017-12-21] MEDS: ASCORBIC ACID 500 MG TAB PO SCH (09:49)
[2017-12-21] MEDS: ASPIRIN 81 MG TABEC PO SCH (09:49)
[2017-12-21] MEDS: BIFIDOBACTERIUM INFANTIS 4 MG CAPSULE PO SCH (09:49)
[2017-12-21] MEDS: ENOXAPARIN 40 MG/0.4 ML SYR SQ SCH (09:50)
[2017-12-21] MEDS: FUROSEMIDE 40 MG TABLET PO SCH (09:50)
[2017-12-21] MEDS: MUPIROCIN OINT 22 GM TUBE TOP SCH (09:51)
[2017-12-21] MEDS: CLOTRIMAZOLE 1% 30 GM CREAM TP SCH (09:51)
[2017-12-21] MEDS: ZINC OXIDE 28.35 GM TUBE TOP SCH (09:51)
[2017-12-21] MEDS: ZINC SULFATE 220 MG CAPSULE PO SCH ×2 (09:52→21:29)
[2017-12-21] MEDS: NYSTATIN 15 GM TUBE TOP SCH (09:52)
[2017-12-21] MEDS: SIMVASTATIN 10MG TABLET PO SCH (21:29)
[2017-12-22] MEDS: PANTOPRAZOLE SODIUM 40 MG TABLET PO SCH (06:31)
[2017-12-22] MEDS: IBUPROFEN 400 MG TABLET PO PRN ×3 (07:52→23:54)
[2017-12-22] MEDS: FUROSEMIDE 40 MG TABLET PO SCH (09:53)
[2017-12-22] MEDS: TAMSULOSIN HCL 0.4 MG CAP.ER.24H PO SCH (09:53)
[2017-12-22] MEDS: ENOXAPARIN 40 MG/0.4 ML SYR SQ SCH (09:53)
[2017-12-22] MEDS: CARVEDILOL 3.125 MG TABLET PO SCH ×2 (09:57→18:15)
[2017-12-22] MEDS: METFORMIN 500 MG TABLET PO SCH (09:59)
[2017-12-22] MEDS: BIFIDOBACTERIUM INFANTIS 4 MG CAPSULE PO SCH (09:59)
[2017-12-22] MEDS: ASPIRIN 81 MG TABEC PO SCH (10:00)
[2017-12-22] MEDS: MULTIVITAMINS/MINERALS TABLET PO SCH (10:00)
[2017-12-22] MEDS: PSYLLIUM HUSK/ASPARTAME 3.4 GM POWD.PACK PO SCH (10:01)
[2017-12-22] MEDS: ASCORBIC ACID 500 MG TAB PO SCH (10:01)
[2017-12-22] MEDS: ZINC SULFATE 220 MG CAPSULE PO SCH ×2 (10:02→22:01)
--- NOTE | 2017-12-22 10:23 | RADIOLOGY REPORT ---
EXAM: CHEST, TWO VIEWS HISTORY: SHORTNESS OF BREATH AND COUGH. TECHNIQUE: Frontal and lateral views of the chest were obtained. Comparison: None. FINDINGS: The cardiac silhouette appears enlarged and likely accentuated by low lung volumes. There are opacities in the lingula and right lung base. No pleural effusion. No pneumothorax. Diffuse thoracic spondylosis with accentuation of the thoracic kyphosis. IMPRESSION: 1. LOW INSPIRATORY LUNG VOLUMES. 2. LIKELY CARDIAC SILHOUETTE ENLARGEMENT. 3. LINGULAR AND RIGHT LUNG BASE OPACITIES, MAY REPRESENT ATELECTASIS OR ACUTE AIR SPACE DISEASE. JOB NUMBER: [id number] MTDD
--- NOTE | 2017-12-22 11:45 | Physician Progress Note ---
Subjective - Date Date of Progress Note: 12/22/17 - Admitting Diagnosis Diagnosis: Deconditioning due to MRSA infection of wound, chronic kidney disease , diabetes - Subjective Nursing Care Plan Problem List Activity Intolerance (Swing Bed) Start: 10/26/17 18: 16 Freq: Status: Active Protocol: Created 10/26/17 18:16 KM (Rec: 10/26/17 18:16 KM [id number]) High Risk: Altered Glucose Metabolism Start: 10/27/17 07: 50 Freq: Status: Complete Protocol: Created 10/27/17 07:50 JAMES (Rec: 10/27/17 07:50 JAMES [id number]) Edit Status 11/24/17 15:49 HMF (Rec: 11/24/17 15:49 HMF [id number]) Active=>Complete High Risk: Impaired Skin Integrity Start: 10/27/17 07: 50 Freq: Status: Active Protocol: Created 10/27/17 07:50 JAMES (Rec: 10/27/17 07:50 JAMES [id number]) Impaired Skin Integrity Start: 10/27/17 07: 50 Freq: Status: Active Protocol: Created 10/27/17 07:50 JAMES (Rec: 10/27/17 07:50 JAMES [id number]) Knowledge Deficit (Swing Bed) Start: 10/26/17 18: 16 Freq: Status: Active Protocol: Created 10/26/17 18:16 KM (Rec: 10/26/17 18:16 KM [id number]) Knowledge Deficit: Diabetes Mellitus Start: 10/27/17 07: 50 Freq: Status: Active Protocol: Created 10/27/17 07:50 JAMES (Rec: 10/27/17 07:50 JAMES [id number]) Pain (Swing Bed) Start: 10/26/17 18: 16 Freq: Status: Complete Protocol: Created 10/26/17 18:16 KMC (Rec: 10/26/17 18:16 KM [id number]) Edit Status 11/15/17 23:21 SRP (Rec: 11/15/17 23:21 SRP [id number]) Active=>Complete Skin Integrity, Impaired (Swing Bed) Start: 10/27/17 00: 50 Freq: Status: Active Protocol: Created 10/27/17 00:50 LPR (Rec: 10/27/17 00:50 LPR [id number]) Subjective: Patient is sitting comfortably in chair at this time, no acute distress, no shortness of breath or resp distress noted. Patient has no complaints at this time. Was last at the wound clinic on Tuesday, continues to have dressing changes of his legs every other day. - Subjective Detail Comment: No additional complaints except as noted below Constitutional: Reports: As per HPI. Denies: Chills, Fever Eyes: Reports: As per HPI ENT: Reports: As per HPI Respiratory: Reports: As per HPI Cardiovascular: Reports: As per HPI Endocrine: Reports: As per HPI Gastrointestinal: Reports: As per HPI Genitourinary: Reports: As per HPI Musculoskeletal: Reports: As per HPI Skin: Reports: Change in color Neurological: Reports: As per HPI Psychiatric: Reports: As per HPI Hematological/Lymphatic: Reports: As per HPI General - Cognitive Patterns Speech: Normal Thought Process: Intact Thought Content: Normal - Communication Select best description of speech pattern: Clear Speech Ability to express ideas and wants: Understood Understanding verbal content: Understands - Mood and Behavior Patterns Appearance: Well Groomed Mood: Normal Attitude: Cooperative Motor Activity: Calm Affect: Appropriate Hallucinations: Denies - Physical Functioning Activity Level: Up as tolerated Turning: Self ad kieran ROM Ability: Moves all extremities Assistive Devices: 2 Wheel Walker Activity Level Comment: Up to bathroom and in room, pt went to outpt apt today at [facility] wound clinic Ambulation Ability: Independent Bed Mobility: Independent Transfer Ability: Independent Bathing Ability: Independent Personal Hygiene: Independent Dressing Ability: Independent Eating (Feeding) Ability: Independent Toileting Ability: Independent Administer Own Medication: Independent Care Ability Comment: Bilateral dressing changes every other day. Last done by [facility]. - Continence Bowel Pattern: Normal for Patient Bladder Pattern: Normal Urinary Incontinence: Urge Meds/Allergies - Allergies Allergies Allergy/AdvReac Type Severity Reaction Status Date / Time silver sulfadiazine Allergy Unverified 10/14/17 15:04 [From Silvadene] - Active Medications Current Medications Ascorbic Acid (Vitamin C) 500 mg PO DAILY [facility] Last Admin: 12/22/17 10:01 Dose: 500 mg Aspirin (Ecotrin (Ec)) 81 mg PO DAILY [facility] Last Admin: 12/22/17 10:00 Dose: 81 mg Carvedilol (Coreg) 6.25 mg PO BIDWM [facility] Last Admin: 12/22/17 09:57 Dose: 6.25 mg Clotrimazole (Lotrimin Af) 1 gm TP DAILY [facility] Last Admin: 12/21/17 09:51 Dose: Not Given Enoxaparin Sodium (Lovenox) 40 mg SQ DAILY [facility] Last Admin: 12/22/17 09:53 Dose: 40 mg Furosemide (Lasix) 40 mg PO DAILY [facility] Last Admin: 12/22/17 09:53 Dose: 40 mg Ibuprofen (Motrin 400mg) 800 mg PO Q8H PRN PRN Reason: PAIN - MILD TO MODERATE (1-7) Last Admin: 12/22/17 07:52 Dose: 800 mg Loperamide HCl (Immodium) 2 mg PO Q4H PRN PRN Reason: DIARRHEA Last Admin: 11/05/17 09:58 Dose: 2 mg Metformin HCl (Glucophage Ir) 500 mg PO DAILYWM [facility] Last Admin: 12/22/17 09:59 Dose: 500 mg Multivitamins/Minerals (Centrum) 1 tab PO DAILY [facility] Last Admin: 12/22/17 10:00 Dose: 1 tab Mupirocin (Bactroban) 22 gm TOP DAILY [facility] Last Admin: 12/21/17 09:51 Dose: Not Given Nystatin () 15 gm TOP DAILY [facility] Last Admin: 12/21/17 09:52 Dose: Not Given Ondansetron HCl (Zofran Odt) 4 mg SL Q8H PRN PRN Reason: NAUSEA/VOMITING Last Admin: 11/16/17 06:33 Dose: 4 mg [facility]op[facility]ole [facility] Last Admin: 12/22/17 06:31 Dose: 40 mg Psyllium Hydrophilic Mucilloid (Metamucil Pwd) 3.4 gm PO DAILY [facility] Last Admin: 12/22/17 10:01 Dose: 3.4 gm Simvastatin (Zocor) 10 mg PO QHS [facility] Last Admin: 12/21/17 21:29 Dose: 10 mg Tamsulosin HCl (Flomax) 0.4 mg PO DAILY [facility] Last Admin: 12/22/17 09:53 Dose: 0.4 mg Zinc Oxide (Desitin) 28.35 gm TOP DAILY [facility] Last Admin: 12/21/17 09:51 Dose: Not Given Zinc Sulfate (Zinc Sulfate) 220 mg PO BID [facility] Last Admin: 12/22/17 10:02 Dose: 220 mg Objective - Vital Signs Vital Signs: Vital Signs - Last 24 Hrs Temp Pulse Resp BP Pulse Ox 12/22/17 07:46 97.0 F L 70 24 116/72 95 12/22/17 07:33 97.0 F L 70 24 116/72 95 12/21/17 19:53 96.6 F L 64 18 105/52 97 - General General Appearance: Alert, Oriented x3, No acute distress Limitations: No limitations - Head Head exam: Atraumatic, Normocephalic, Normal inspection Head exam detail: negative: CSF otorrhea, CSF rhinorrhea, General tenderness, Laceration - Eye Eye exam: Normal appearance. negative: Conjunctival injection, Scleral icterus Pupils: negative: Unequal - ENT ENT exam: Mucous membranes moist Ear exam: Normal external inspection Nasal Exam: Normal inspection Mouth exam: Other (poor dentition) Teeth exam: Dental caries - Neck Neck exam: Normal inspection - Respiratory Respiratory exam: negative: Accessory muscle use - Cardiovascular Cardiovascular Exam: Normal rhythm, Normal heart sounds Peripheral Pulses: 2+: Radial (R), Radial (L) - GI/Abdominal GI/Abdominal exam: Soft, Normal bowel sounds. negative: Distended, Tenderness - Rectal Rectal exam: Deferred - exam: Deferred - Extremities Extremities exam: Pedal edema, Other (healing ulcers of bilateral lower ext with extension to proximal tibia/distal femur) - Back Back exam: Reports: Normal inspection - Neurological Neurological exam: Oriented X3 - Psychiatric Psychiatric exam: Normal affect, Normal mood - Skin Skin exam: Dry, Other (BLE lesions, no s/sx of infection, facial jaundice) Type of lesion: negative: Abscess Distribution of rash: RLE, LLE Description of rash: Erythematous. negative: Discharge H&P Results - Labs Result Diagrams: 12/12/17 06:11 12/20/17 07:33 Discharge Potential - Discharge Needs Community Services Used Prior to Admission: None Patient Discharge Plan Description: Return Home Community Services Needed at Discharge: None Discharge Needs Comment: Wound Clinic Plan - Swing Bed Certification Initial Certification Due: 10/26/17 14 Day Re-Cert Due: 11/09/17 44 Day Re-Cert Due: 12/09/17 74 Day Re-Cert Due: 01/08/18 - Detailed Diagnosis and Plan (1) Diabetic ulcer of lower leg Current Visit: Yes Status: Acute Base Code: E11.622 - TYPE 2 DIABETES MELLITUS WITH OTHER SKIN ULCER; L97.909 - NON-PRS CHRONIC ULC UNSP PRT OF UNSP LOW LEG W UNSP SEVERITY Comment: 12/22/17: - Bilateral lower ext leg wounds improving with decreased wound weeping. Dressing changes every other day, wound clinic weekly - +2 pitting edema, localized to bilateral ankles. - ibuprofen 800 Q8 hours PRN for pain control (2) CKD (chronic kidney disease) Current Visit: Yes Status: Acute Base Code: N18.9 - CHRONIC KIDNEY DISEASE, UNSPECIFIED Comment: 12/22/17: - Pt's renal function has returned to normal and GFR > 60 - Lovenox to continue at 40mg SQ daily. (3) DVT prophylaxis Current Visit: No Status: Acute Base Code: PCI2683 - Comment: 12/22/17: - Pt high risk of DVT - Resume lovenox 40mg QD. Concern for HIT with decline in platelets. CBC ordered for monitoring. - Patient encouraged frequent ambulation in room (4) Full code status Current Visit: Yes Status: Acute Base Code: Z78.9 - OTHER SPECIFIED HEALTH STATUS Comment: 12/22/17: Patient is full code
[2017-12-22] MEDS: MUPIROCIN OINT 22 GM TUBE TOP SCH (17:38)
[2017-12-22] MEDS: ZINC OXIDE 28.35 GM TUBE TOP SCH (17:38)
[2017-12-22] MEDS: NYSTATIN 15 GM TUBE TOP SCH (17:39)
[2017-12-22] MEDS: CLOTRIMAZOLE 1% 30 GM CREAM TP SCH (17:39)
[2017-12-22] MEDS: SIMVASTATIN 10MG TABLET PO SCH (22:01)
[2017-12-23] MEDS: PANTOPRAZOLE SODIUM 40 MG TABLET PO SCH (06:23)
[2017-12-23 06:25] LABS: BASO % 0.3 % (0-6); EOS % 3.3 % (0-6); GRAN % 61.6 % (47-80); HEMATOCRIT 44.6 % (42.0-52.0); HEMOGLOBIN 13.7 gm/dl (14.0-18.0); LYMPH % 21.7 % (16-45); MEAN CELL VOLUME 94.1 fl (81-97); MEAN CORPUSCULAR HEMOGLOBIN 28.9 pg (27-33); MEAN CORPUSCULAR HGB CONC 30.7 g/dl (32-36); MEAN PLATELET VOLUME 11.4 fl (7.4-10.4); MONO % 13.1 % (0-9); PLATELET COUNT 177 K/uL (130-400); RED BLOOD COUNT 4.74 M/uL (4.40-5.70); RED CELL DISTRIBUTION WIDTH 15.6 % (11.5-14.5); WHITE BLOOD COUNT W/O DIFF 6.3 K/uL (4.2-12.2)
[2017-12-23 06:34] LABS: CREATININE 1.3 mg/dL (0.7-1.2)
[2017-12-23] MEDS: CARVEDILOL 3.125 MG TABLET PO SCH ×2 (07:40→17:26)
[2017-12-23] MEDS: METFORMIN 500 MG TABLET PO SCH (07:41)
[2017-12-23] MEDS: IBUPROFEN 400 MG TABLET PO PRN ×3 (08:20→23:59)
[2017-12-23] MEDS: FUROSEMIDE 40 MG TABLET PO SCH (09:50)
[2017-12-23] MEDS: ENOXAPARIN 40 MG/0.4 ML SYR SQ SCH (09:50)
[2017-12-23] MEDS: TAMSULOSIN HCL 0.4 MG CAP.ER.24H PO SCH (09:50)
[2017-12-23] MEDS: BIFIDOBACTERIUM INFANTIS 4 MG CAPSULE PO SCH (11:01)
[2017-12-23] MEDS: MULTIVITAMINS/MINERALS TABLET PO SCH (11:01)
[2017-12-23] MEDS: ASCORBIC ACID 500 MG TAB PO SCH (11:02)
[2017-12-23] MEDS: MUPIROCIN OINT 22 GM TUBE TOP SCH (11:02)
[2017-12-23] MEDS: PSYLLIUM HUSK/ASPARTAME 3.4 GM POWD.PACK PO SCH (11:02)
[2017-12-23] MEDS: ASPIRIN 81 MG TABEC PO SCH (11:02)
[2017-12-23] MEDS: ZINC OXIDE 28.35 GM TUBE TOP SCH (11:02)
[2017-12-23] MEDS: NYSTATIN 15 GM TUBE TOP SCH (11:03)
[2017-12-23] MEDS: CLOTRIMAZOLE 1% 30 GM CREAM TP SCH (11:03)
[2017-12-23] MEDS: ZINC SULFATE 220 MG CAPSULE PO SCH ×2 (11:10→22:01)
--- NOTE | 2017-12-23 15:35 | Physical Therapy Tx Note ---
Physical Therapy Tx Note - Treatment Note Tolerated: Good Total Time Spent With Patient: 15 Physical Therapy Tx Note: Detail (The patient was seen for gait training on the stairs due to the patient's apartment has two steps without handrails. The patient ambulated on 3 steps independently using step to gait pattern, going down reciprocally without/with minimal use of railing. The patient is discharged from inpatient PT due to all goals have been met.) Physical Therapy Problem List: Detail (1) Standing balance impairment 2) Pt. not assessed for bathroom transfer/limited support systems in home bathroom environment 3) Pain with full weight bearing without AD, LLE>RLE 4) Ambulation over stairs not assessed) Physical Therapy Goals: GOALS MET: 1) Pt. will be independent with safe bathroom transfers. 2) Pt. will be independent with ambulation over level surfaces and stairs using front wheeled walker. 3) Pt. will verbalize good understanding of LE exercises for continued strengthening and mobility. 4) Pt. will exhibit good midline positioning with standing balance using front wheeled walker. 5) Pt. will verbalize understanding of gait with front wheeled walker for use in home environment. Physical Therapy Plan: All inpatient PT goals have been met. The patient is discharged from PT.
[2017-12-23] MEDS: SIMVASTATIN 10MG TABLET PO SCH (22:01)
[2017-12-24] MEDS: PANTOPRAZOLE SODIUM 40 MG TABLET PO SCH (06:13)
[2017-12-24] MEDS: METFORMIN 500 MG TABLET PO SCH (08:16)
[2017-12-24] MEDS: IBUPROFEN 400 MG TABLET PO PRN ×3 (08:16→23:55)
[2017-12-24] MEDS: CARVEDILOL 3.125 MG TABLET PO SCH ×2 (08:19→17:07)
[2017-12-24] MEDS: FUROSEMIDE 40 MG TABLET PO SCH (10:24)
[2017-12-24] MEDS: BIFIDOBACTERIUM INFANTIS 4 MG CAPSULE PO SCH (10:24)
[2017-12-24] MEDS: MULTIVITAMINS/MINERALS TABLET PO SCH (10:25)
[2017-12-24] MEDS: ASPIRIN 81 MG TABEC PO SCH (10:25)
[2017-12-24] MEDS: ASCORBIC ACID 500 MG TAB PO SCH (10:26)
[2017-12-24] MEDS: TAMSULOSIN HCL 0.4 MG CAP.ER.24H PO SCH (10:26)
[2017-12-24] MEDS: ZINC SULFATE 220 MG CAPSULE PO SCH ×2 (10:27→22:09)
[2017-12-24] MEDS: NYSTATIN 15 GM TUBE TOP SCH (10:27)
[2017-12-24] MEDS: ENOXAPARIN 40 MG/0.4 ML SYR SQ SCH (10:28)
[2017-12-24] MEDS: PSYLLIUM HUSK/ASPARTAME 3.4 GM POWD.PACK PO SCH (10:29)
[2017-12-24] MEDS: MUPIROCIN OINT 22 GM TUBE TOP SCH (10:40)
[2017-12-24] MEDS: CLOTRIMAZOLE 1% 30 GM CREAM TP SCH (10:40)
[2017-12-24] MEDS: ZINC OXIDE 28.35 GM TUBE TOP SCH ×2 (10:40→17:07)
[2017-12-24] MEDS: SIMVASTATIN 10MG TABLET PO SCH (22:09)
[2017-12-25] MEDS: IBUPROFEN 400 MG TABLET PO PRN ×3 (06:03→21:56)
[2017-12-25] MEDS: PANTOPRAZOLE SODIUM 40 MG TABLET PO SCH (06:03)
[2017-12-25] MEDS: METFORMIN 500 MG TABLET PO SCH (08:26)
[2017-12-25] MEDS: CARVEDILOL 3.125 MG TABLET PO SCH ×2 (08:26→18:32)
[2017-12-25] MEDS ORDERED: NYSTATIN 15 GM POWDER TP PRN (09:00)
[2017-12-25] MEDS: ZINC OXIDE 28.35 GM TUBE TOP SCH (10:50)
[2017-12-25] MEDS: MULTIVITAMINS/MINERALS TABLET PO SCH (10:51)
[2017-12-25] MEDS: FUROSEMIDE 40 MG TABLET PO SCH (10:51)
[2017-12-25] MEDS: TAMSULOSIN HCL 0.4 MG CAP.ER.24H PO SCH (10:51)
[2017-12-25] MEDS: ASPIRIN 81 MG TABEC PO SCH (10:51)
[2017-12-25] MEDS: ASCORBIC ACID 500 MG TAB PO SCH (10:51)
[2017-12-25] MEDS: ENOXAPARIN 40 MG/0.4 ML SYR SQ SCH (10:51)
[2017-12-25] MEDS: BIFIDOBACTERIUM INFANTIS 4 MG CAPSULE PO SCH (10:52)
[2017-12-25] MEDS: PSYLLIUM HUSK/ASPARTAME 3.4 GM POWD.PACK PO SCH (10:52)
[2017-12-25] MEDS: MUPIROCIN OINT 22 GM TUBE TOP SCH (10:52)
[2017-12-25] MEDS: ZINC SULFATE 220 MG CAPSULE PO SCH ×2 (10:52→21:56)
[2017-12-25] MEDS: CLOTRIMAZOLE 1% 30 GM CREAM TP SCH (10:53)
[2017-12-25] MEDS: NYSTATIN 15 GM TUBE TOP SCH (10:54)
[2017-12-25] MEDS: SIMVASTATIN 10MG TABLET PO SCH (21:56)
[2017-12-26] MEDS: PANTOPRAZOLE SODIUM 40 MG TABLET PO SCH (06:06)
[2017-12-26] MEDS: IBUPROFEN 400 MG TABLET PO PRN ×2 (06:06→13:28)
[2017-12-26] MEDS: METFORMIN 500 MG TABLET PO SCH (08:02)
[2017-12-26] MEDS: CARVEDILOL 3.125 MG TABLET PO SCH (08:02)
--- NOTE | 2017-12-26 09:39 | Rehab Discharge Summary ---
Patient Information - Patient Information Diagnosis: Deconditioning d/t MRSA; infection of wound; chronic kidney disease; diabet Ordered Treatment: OT Evaluate and Treat Surgery: No History: Detail (Pt. reports PMH significant for heart attack, Type 2 diabetes, lower extremity ulcer, and kidney complications currently being controlled with medications/monitored. Pt. notes sx at feet began ~2 months ago. Pt. was previously seen at [facility] for inpatient PT and was transferred to [facility] for wound care.) Past Med/Kelly Hx Detail: Detail (Please see additional forms regarding patient's PMH and medications.) Past Medical/Surgical Hx: PAST MEDICAL/SURGICAL HISTORY Past Surgical History gallbladder appendix PMH - Respiratory Hx Respiratory Disorders No PMH - Cardiovascular Hx Cardiovascular Disorders Yes Hx Heart Attack Yes: 2006 PMH - Neuro Hx Neurological Disorders No Hx Seizures No PMH - GI Hx Gastrointestinal Disorders No PMH - Hx Genitourinary Disorders Yes Hx Kidney Stones Yes PMH - Endocrine Hx Endocrine Disorders Yes Hx Diabetes Yes: type 2 PMH - Musculoskeletal Hx Musculoskeletal Disorders No PMH - Psych Hx Psychiatric Problems No PMH - Hematology/Oncology Hx Hematology/Oncology No Disorders Premorbid Status: Detail (Pt. reports full function and independent living at home prior to onset of sx ~2 months ago.) Social History: Detail (Pt is discharging to a new apartment.) Precautions: Fall (Univeral fall precaution secondary to bilateral diabetic foot ulcer and deconditioning. Pt. was not given weight weight bearing status and has been ambulating with front wheeled walker.), Other (isolation) Objective Data - Pain Pain Present: Yes - Mental Status Patient Orientation: Oriented x3 - Visual Perception Appears within normal limits for therapeutic activities - ROM Within normal limits (Laurent UE AROM WNL) - Strength/Tone Within normal limits (Laurent UE strength WNL) - Coordination Appears within normal limits for therapeutic activities - Bed Mobility Independent - Transfers Independent - Balance Balance Sitting: Good Balance Standing: Good - Sensation Intact - Gait Detail (Ind with ambulation using 2 wheeled walker) - ADL's/IADL's Detail (Ind with showering, dressing, grooming and hygiene) Therapy Assessment - Therapy Assessment Detail (Pt is safe and Ind with self cares.) Problem List - Problem List Physical Therapy Problem List: Detail (1) Standing balance impairment 2) Pt. not assessed for bathroom transfer/limited support systems in home bathroom environment 3) Pain with full weight bearing without AD, LLE>RLE 4) Ambulation over stairs not assessed) Occupational Therapy Problem List: Detail (1. Need to assess complete lower body dressing.) Goals - Goals Physical Therapy Goals: GOALS MET: 1) Pt. will be independent with safe bathroom transfers. 2) Pt. will be independent with ambulation over level surfaces and stairs using front wheeled walker. 3) Pt. will verbalize good understanding of LE exercises for continued strengthening and mobility. 4) Pt. will exhibit good midline positioning with standing balance using front wheeled walker. 5) Pt. will verbalize understanding of gait with front wheeled walker for use in home environment. Occupational Therapy Goals: Goals Met: 1. Pt will be Ind with total body dressing including pants, socks and shoes as appropriate. Prognosis - Prognosis Good Plan - Plan Physical Therapy Plan: All inpatient PT goals have been met. The patient is discharged from PT. Occupational Therapy Plan: Pt discharged home.
[2017-12-26] MEDS: MULTIVITAMINS/MINERALS TABLET PO SCH (10:18)
[2017-12-26] MEDS: ENOXAPARIN 40 MG/0.4 ML SYR SQ SCH (10:18)
[2017-12-26] MEDS: TAMSULOSIN HCL 0.4 MG CAP.ER.24H PO SCH (10:18)
[2017-12-26] MEDS: FUROSEMIDE 40 MG TABLET PO SCH (10:18)
[2017-12-26] MEDS: ASPIRIN 81 MG TABEC PO SCH (10:18)
[2017-12-26] MEDS: BIFIDOBACTERIUM INFANTIS 4 MG CAPSULE PO SCH (10:18)
[2017-12-26] MEDS: PSYLLIUM HUSK/ASPARTAME 3.4 GM POWD.PACK PO SCH (10:19)
[2017-12-26] MEDS: ASCORBIC ACID 500 MG TAB PO SCH (10:20)
[2017-12-26] MEDS: ZINC SULFATE 220 MG CAPSULE PO SCH (10:22)
--- NOTE | 2017-12-26 11:01 | Discharge Summary ---
Providers Discharge Summary Date: 12/26/17 Date of admission: 10/26/17 14:45 Expected Date of Discharge: 12/26/17 Attending physician: LISETTE THOMSON Primary care physician: Halima Cervantes Physical Exam - Vital Signs Vital Signs: Vital Signs - Last 24 Hrs Temp Pulse Resp BP Pulse Ox 12/26/17 08:00 98.2 F 86 18 159/81 94 L 12/25/17 20:00 97.5 F L 78 20 144/49 96 - General General Appearance: Alert, Oriented x3, Cooperative, No acute distress Limitations: No limitations - Head Head exam: Atraumatic, Normocephalic, Normal inspection Head exam detail: negative: CSF otorrhea, CSF rhinorrhea, General tenderness, Laceration - Eye Eye exam: Normal appearance. negative: Conjunctival injection, Scleral icterus Pupils: negative: Unequal - ENT ENT exam: Mucous membranes moist Ear exam: Normal external inspection Nasal Exam: Normal inspection Mouth exam: Other (poor dentition) Teeth exam: Dental caries - Neck Neck exam: Normal inspection - Respiratory Respiratory exam: negative: Accessory muscle use - Cardiovascular Cardiovascular Exam: Normal rhythm, Normal heart sounds Peripheral Pulses: 2+: Radial (R), Radial (L) - GI/Abdominal GI/Abdominal exam: Soft, Normal bowel sounds. negative: Distended, Tenderness - Rectal Rectal exam: Deferred - exam: Deferred - Extremities Extremities exam: Pedal edema, Other (healing ulcers of bilateral lower ext with extension to proximal tibia/distal femur) - Back Back exam: Reports: Normal inspection - Neurological Neurological exam: Alert, Normal gait, Oriented X3 - Psychiatric Psychiatric exam: Normal affect, Normal mood - Skin Skin exam: Dry, Other (BLE lesions, no s/sx of infection, facial jaundice) Type of lesion: negative: Abscess Description of rash: negative: Discharge Hospitalization - Hospitalization Admission Diagnosis: Deconditioning due to MRSA infection of wound, chronic kidney disease, diabetes - Problem List (1) Diabetic ulcer of lower leg Current Visit: Yes Status: Acute Base Code: E11.622 - TYPE 2 DIABETES MELLITUS WITH OTHER SKIN ULCER; L97.909 - NON-PRS CHRONIC ULC UNSP PRT OF UNSP LOW LEG W UNSP SEVERITY Comment: 12/26/17: - Bilateral lower ext leg wounds improving with decreased wound weeping. Dressing changes every other day at this point, wound clinic weekly - +2 pitting edema, localized to bilateral ankles. - ibuprofen 800 Q8 hours PRN for pain control (2) CKD (chronic kidney disease) Current Visit: Yes Status: Acute Base Code: N18.9 - CHRONIC KIDNEY DISEASE, UNSPECIFIED Comment: 12/26/17: - Pt's renal function has returned to normal and GFR > 60 (3) DVT prophylaxis Current Visit: No Status: Acute Base Code: [id number] - Comment: 12/26/17: - Pt high risk of DVT - No need for further treatment upon discharge, patient to resume normal activity. Encouraged frequent ambulation within the room (4) Full code status Current Visit: Yes Status: Acute Base Code: Z78.9 - OTHER SPECIFIED HEALTH STATUS Comment: 12/26/17: Patient is full code - Hospitalization Course Disposition: [facility] Service Hospital Course: PMHx: CKD, DMII, CAD, Nephrolithiasis, HLD, former heavy smoker (4PPD) Pt transferred today to [facility] from [facility] after being treated for diabetic wounds. He initially presented to [facility] with severe diabetic wounds after trying to treat them on his own for 2 months. The pt was started on IV cipro and clinda without improvement and needed wound care so he was transferred to [facility] for further treatment and evaluation. There, he was started on vanco and meropenem. Cx was + for MRSA and Alcaligenes Faecalis. His WBC declined with treatment and his wounds improved. ID saw the pt and recommended 3 weeks of PO xyvox and levaquin for continued treatment. He did have some mild DAVID which resolved with stopping nephrotoxic drugs. He also did present with increased BNP and was started on lasix. Lisinopril was D/C'd. 12/26/17: Patient has completed full course of PO antibiotics, wounds healing well at this time. Significant improvement in swelling of lower extremities. Patient has found new housing, and all set-up for discharge today. He will have visiting nursing every other day for dressing changes and continue seeing the wound clinic weekly. Patient is also set-up for follow-up with his PCP next week and cardiology in the next couple weeks as well. Patient has been ambulating in room ad kieran and performing his own ADLs. Procedures: Imaging and X-Rays 11/04/17 16:37 ARTERIAL DOPPLER LOWER EXT TAYLER [US] Urgent 12/20/17 16:45 CHEST 2 VIEWS [RAD] Stat Cardiology Procedures 10/27/17 10:07 Echocardiogram 2D - Complete ONCE 10/27/17 14:34 Echo W/CF & Cardiac Doppler NOW Abnormal Labs: Abnormal Lab Results 10/27/17 10/27/17 10/27/17 Range/Units 06:05 06:05 12:21 RBC (4.40-5.70) M/uL Hgb 13.4 L (14.0-18.0) gm/dl Hct (42.0-52.0) % MCHC 31.1 L (32-36) g/dl RDW (11.5-14.5) % Plt Count (130-400) K/uL MPV (7.4-10.4) fl Lymphocytes % (16-45) % Monocytes % (0-9) % Lymphocytes (16-45) % Monocytes 10.0 H (0-9) % Haptoglobin (36-195) mg/dL Potassium (3.4-4.5) mmol/L Chloride (98-107) mmol/L BUN (8-23) mg/dL Creatinine 1.3 H (0.7-1.2) mg/dL POC Glucose 114 H (70-110) mg/dL Random Glucose 131 H (74-109) mg/dL Total Bilirubin (0.2-1.0) mg/dL Total Protein (6.6-8.7) g/dL Albumin (4.0-5.0) g/dL Vitamin D 25-Hydroxy (25.0-80.0) ng/mL 10/27/17 10/28/17 10/29/17 Range/Units 17:35 08:11 08:50 RBC (4.40-5.70) M/uL Hgb 13.4 L (14.0-18.0) gm/dl Hct (42.0-52.0) % MCHC 31.8 L (32-36) g/dl RDW (11.5-14.5) % Plt Count (130-400) K/uL MPV 10.8 H (7.4-10.4) fl Lymphocytes % (16-45) % Monocytes % 9.3 H (0-9) % Lymphocytes (16-45) % Monocytes (0-9) % Haptoglobin (36-195) mg/dL Potassium (3.4-4.5) mmol/L Chloride (98-107) mmol/L BUN (8-23) mg/dL Creatinine (0.7-1.2) mg/dL POC Glucose 131 H 121 H (70-110) mg/dL Random Glucose (74-109) mg/dL Total Bilirubin (0.2-1.0) mg/dL Total Protein (6.6-8.7) g/dL Albumin (4.0-5.0) g/dL Vitamin D 25-Hydroxy (25.0-80.0) ng/mL 10/29/17 10/29/17 10/29/17 Range/Units 08:50 11:50 17:19 RBC (4.40-5.70) M/uL Hgb (14.0-18.0) gm/dl Hct (42.0-52.0) % MCHC (32-36) g/dl RDW (11.5-14.5) % Plt Count (130-400) K/uL MPV (7.4-10.4) fl Lymphocytes % (16-45) % Monocytes % (0-9) % Lymphocytes (16-45) % Monocytes (0-9) % Haptoglobin (36-195) mg/dL Potassium (3.4-4.5) mmol/L Chloride (98-107) mmol/L BUN 25 H (8-23) mg/dL Creatinine 1.3 H (0.7-1.2) mg/dL POC Glucose 133 H 117 H (70-110) mg/dL Random Glucose (74-109) mg/dL Total Bilirubin (0.2-1.0) mg/dL Total Protein (6.6-8.7) g/dL Albumin (4.0-5.0) g/dL Vitamin D 25-Hydroxy (25.0-80.0) ng/mL 10/29/17 10/30/17 10/30/17 Range/Units 22:00 06:50 17:00 RBC (4.40-5.70) M/uL Hgb (14.0-18.0) gm/dl Hct (42.0-52.0) % MCHC (32-36) g/dl RDW (11.5-14.5) % Plt Count (130-400) K/uL MPV (7.4-10.4) fl Lymphocytes % (16-45) % Monocytes % (0-9) % Lymphocytes (16-45) % Monocytes (0-9) % Haptoglobin (36-195) mg/dL Potassium (3.4-4.5) mmol/L Chloride (98-107) mmol/L BUN (8-23) mg/dL Creatinine (0.7-1.2) mg/dL POC Glucose 151 H 111 H 123 H (70-110) mg/dL Random Glucose (74-109) mg/dL Total Bilirubin (0.2-1.0) mg/dL Total Protein (6.6-8.7) g/dL Albumin (4.0-5.0) g/dL Vitamin D 25-Hydroxy (25.0-80.0) ng/mL 11/03/17 11/04/17 11/07/17 Range/Units 07:30 07:00 06:14 RBC (4.40-5.70) M/uL Hgb (14.0-18.0) gm/dl Hct (42.0-52.0) % MCHC (32-36) g/dl RDW (11.5-14.5) % Plt Count (130-400) K/uL MPV (7.4-10.4) fl Lymphocytes % (16-45) % Monocytes % (0-9) % Lymphocytes (16-45) % Monocytes (0-9) % Haptoglobin (36-195) mg/dL Potassium (3.4-4.5) mmol/L Chloride (98-107) mmol/L BUN 31 H (8-23) mg/dL Creatinine (0.7-1.2) mg/dL POC Glucose 121 H 120 H (70-110) mg/dL Random Glucose (74-109) mg/dL Total Bilirubin (0.2-1.0) mg/dL Total Protein (6.6-8.7) g/dL Albumin (4.0-5.0) g/dL Vitamin D 25-Hydroxy (25.0-80.0) ng/mL 11/09/17 11/12/17 11/12/17 Range/Units 18:44 05:45 05:45 RBC 4.22 L (4.40-5.70) M/uL Hgb 12.0 L (14.0-18.0) gm/dl Hct 37.8 L (42.0-52.0) % MCHC 31.7 L (32-36) g/dl RDW (11.5-14.5) % Plt Count 83 L (130-400) K/uL MPV 10.8 H (7.4-10.4) fl Lymphocytes % (16-45) % Monocytes % 13.9 H (0-9) % Lymphocytes (16-45) % Monocytes (0-9) % Haptoglobin (36-195) mg/dL Potassium (3.4-4.5) mmol/L Chloride (98-107) mmol/L BUN 27 H (8-23) mg/dL Creatinine (0.7-1.2) mg/dL POC Glucose 126 H (70-110) mg/dL Random Glucose 117 H (74-109) mg/dL Total Bilirubin (0.2-1.0) mg/dL Total Protein 6.2 L (6.6-8.7) g/dL Albumin 3.6 L (4.0-5.0) g/dL Vitamin D 25-Hydroxy (25.0-80.0) ng/mL 11/13/17 11/14/17 11/15/17 Range/Units 07:10 06:30 06:23 RBC 4.03 L 4.19 L (4.40-5.70) M/uL Hgb 11.4 L 12.5 L 11.7 L (14.0-18.0) gm/dl Hct 35.7 L 39.0 L 37.3 L (42.0-52.0) % MCHC 31.9 L 31.4 L (32-36) g/dl RDW (11.5-14.5) % Plt Count 107 L 89 L 91 L (130-400) K/uL MPV 11.1 H (7.4-10.4) fl Lymphocytes % (16-45) % Monocytes % 13.3 H 12.5 H 11.0 H (0-9) % Lymphocytes (16-45) % Monocytes (0-9) % Haptoglobin (36-195) mg/dL Potassium (3.4-4.5) mmol/L Chloride (98-107) mmol/L BUN (8-23) mg/dL Creatinine (0.7-1.2) mg/dL POC Glucose (70-110) mg/dL Random Glucose (74-109) mg/dL Total Bilirubin (0.2-1.0) mg/dL Total Protein (6.6-8.7) g/dL Albumin (4.0-5.0) g/dL Vitamin D 25-Hydroxy (25.0-80.0) ng/mL 11/20/17 11/20/17 11/23/17 Range/Units 06:20 06:20 06:51 RBC 3.99 L 3.91 L (4.40-5.70) M/uL Hgb 11.3 L 11.0 L (14.0-18.0) gm/dl Hct 35.5 L 36.0 L (42.0-52.0) % MCHC 31.8 L 30.6 L (32-36) g/dl RDW 16.0 H (11.5-14.5) % Plt Count 112 L (130-400) K/uL MPV 10.6 H (7.4-10.4) fl Lymphocytes % (16-45) % Monocytes % (0-9) % Lymphocytes 14.0 L (16-45) % Monocytes (0-9) % Haptoglobin (36-195) mg/dL Potassium (3.4-4.5) mmol/L Chloride (98-107) mmol/L BUN (8-23) mg/dL Creatinine (0.7-1.2) mg/dL POC Glucose (70-110) mg/dL Random Glucose (74-109) mg/dL Total Bilirubin (0.2-1.0) mg/dL Total Protein 6.1 L (6.6-8.7) g/dL Albumin 3.6 L (4.0-5.0) g/dL Vitamin D 25-Hydroxy (25.0-80.0) ng/mL 11/23/17 11/26/17 11/26/17 Range/Units 06:51 08:42 08:42 RBC 4.03 L (4.40-5.70) M/uL Hgb 11.3 L (14.0-18.0) gm/dl Hct 37.7 L (42.0-52.0) % MCHC 30.0 L (32-36) g/dl RDW 16.3 H (11.5-14.5) % Plt Count (130-400) K/uL MPV 11.1 H (7.4-10.4) fl Lymphocytes % (16-45) % Monocytes % 11.6 H (0-9) % Lymphocytes (16-45) % Monocytes (0-9) % Haptoglobin (36-195) mg/dL Potassium (3.4-4.5) mmol/L Chloride (98-107) mmol/L BUN (8-23) mg/dL Creatinine (0.7-1.2) mg/dL POC Glucose (70-110) mg/dL Random Glucose 125 H 140 H (74-109) mg/dL Total Bilirubin 1.60 H (0.2-1.0) mg/dL Total Protein 6.2 L (6.6-8.7) g/dL Albumin 3.7 L (4.0-5.0) g/dL Vitamin D 25-Hydroxy (25.0-80.0) ng/mL 11/26/17 11/27/17 11/27/17 Range/Units 08:44 06:05 06:05 RBC 4.08 L (4.40-5.70) M/uL Hgb 11.4 L (14.0-18.0) gm/dl Hct 38.3 L (42.0-52.0) % MCHC 29.8 L (32-36) g/dl RDW 16.5 H (11.5-14.5) % Plt Count (130-400) K/uL MPV 11.0 H (7.4-10.4) fl Lymphocytes % 15.7 L (16-45) % Monocytes % 10.7 H (0-9) % Lymphocytes (16-45) % Monocytes (0-9) % Haptoglobin (36-195) mg/dL Potassium 4.6 H (3.4-4.5) mmol/L Chloride (98-107) mmol/L BUN (8-23) mg/dL Creatinine (0.7-1.2) mg/dL POC Glucose (70-110) mg/dL Random Glucose 139 H (74-109) mg/dL Total Bilirubin 1.60 H 1.10 H (0.2-1.0) mg/dL Total Protein 6.3 L (6.6-8.7) g/dL Albumin 3.7 L (4.0-5.0) g/dL Vitamin D 25-Hydroxy (25.0-80.0) ng/mL 11/27/17 11/28/17 11/28/17 Range/Units 06:05 06:46 06:46 RBC (4.40-5.70) M/uL Hgb (14.0-18.0) gm/dl Hct (42.0-52.0) % MCHC (32-36) g/dl RDW (11.5-14.5) % Plt Count (130-400) K/uL MPV (7.4-10.4) fl Lymphocytes % (16-45) % Monocytes % (0-9) % Lymphocytes (16-45) % Monocytes (0-9) % Haptoglobin 208 H (36-195) mg/dL Potassium (3.4-4.5) mmol/L Chloride (98-107) mmol/L BUN (8-23) mg/dL Creatinine (0.7-1.2) mg/dL POC Glucose (70-110) mg/dL Random Glucose (74-109) mg/dL Total Bilirubin 1.10 H (0.2-1.0) mg/dL Total Protein (6.6-8.7) g/dL Albumin (4.0-5.0) g/dL Vitamin D 25-Hydroxy 23.1 L (25.0-80.0) ng/mL 11/29/17 11/30/17 12/01/17 Range/Units 09:12 06:08 11:48 RBC 3.82 L (4.40-5.70) M/uL Hgb 10.9 L (14.0-18.0) gm/dl Hct 36.0 L (42.0-52.0) % MCHC 30.3 L (32-36) g/dl RDW 16.7 H (11.5-14.5) % Plt Count (130-400) K/uL MPV (7.4-10.4) fl Lymphocytes % (16-45) % Monocytes % 11.5 H (0-9) % Lymphocytes (16-45) % Monocytes (0-9) % Haptoglobin (36-195) mg/dL Potassium (3.4-4.5) mmol/L Chloride (98-107) mmol/L BUN (8-23) mg/dL Creatinine (0.7-1.2) mg/dL POC Glucose (70-110) mg/dL Random Glucose (74-109) mg/dL Total Bilirubin 1.20 H 1.30 H (0.2-1.0) mg/dL Total Protein (6.6-8.7) g/dL Albumin (4.0-5.0) g/dL Vitamin D 25-Hydroxy (25.0-80.0) ng/mL 12/04/17 12/12/17 12/12/17 Range/Units 06:00 06:11 06:11 RBC (4.40-5.70) M/uL Hgb 12.9 L (14.0-18.0) gm/dl Hct (42.0-52.0) % MCHC 29.7 L (32-36) g/dl RDW 16.8 H (11.5-14.5) % Plt Count (130-400) K/uL MPV 10.8 H (7.4-10.4) fl Lymphocytes % (16-45) % Monocytes % 11.2 H (0-9) % Lymphocytes (16-45) % Monocytes (0-9) % Haptoglobin (36-195) mg/dL Potassium (3.4-4.5) mmol/L Chloride 108 H (98-107) mmol/L BUN (8-23) mg/dL Creatinine 1.3 H (0.7-1.2) mg/dL POC Glucose (70-110) mg/dL Random Glucose 136 H 123 H (74-109) mg/dL Total Bilirubin 1.20 H (0.2-1.0) mg/dL Total Protein (6.6-8.7) g/dL Albumin 3.9 L 3.8 L (4.0-5.0) g/dL Vitamin D 25-Hydroxy (25.0-80.0) ng/mL 12/20/17 12/23/17 12/23/17 Range/Units 07:33 06:00 06:00 RBC (4.40-5.70) M/uL Hgb 13.7 L (14.0-18.0) gm/dl Hct (42.0-52.0) % MCHC 30.7 L (32-36) g/dl RDW 15.6 H (11.5-14.5) % Plt Count (130-400) K/uL MPV 11.4 H (7.4-10.4) fl Lymphocytes % (16-45) % Monocytes % 13.1 H (0-9) % Lymphocytes (16-45) % Monocytes (0-9) % Haptoglobin (36-195) mg/dL Potassium (3.4-4.5) mmol/L Chloride (98-107) mmol/L BUN 27 H (8-23) mg/dL Creatinine 1.3 H 1.3 H (0.7-1.2) mg/dL POC Glucose (70-110) mg/dL Random Glucose 140 H 140 H (74-109) mg/dL Total Bilirubin (0.2-1.0) mg/dL Total Protein (6.6-8.7) g/dL Albumin (4.0-5.0) g/dL Vitamin D 25-Hydroxy (25.0-80.0) ng/mL Condition at Discharge: (2) Stable Discharge Medications - Discharge Medications Prescriptions: Ascorbic Acid [Vitamin C] 500 mg PO DAILY #30 tab Furosemide [Lasix] 40 mg PO DAILY #30 tablet Ibuprofen [Motrin] 800 mg PO Q8H PRN #30 tablet PRN Reason: Pain - Mild To Moderate (1-7) Metformin HCl [Glucophage Ir] 500 mg PO BID #60 tablet Zinc Sulfate 220 mg PO BID #30 capsule Home Medications: Ambulatory Orders Aspirin 81 mg PO NOW #1 tab.chew 10/14/17 [Last Taken Unknown] Carvedilol 6.25 mg PO DAILY tab 10/14/17 [Last Taken Unknown] Nystatin [Nyamyc] 60 gm TP DAILY 10/14/17 [Last Taken Unknown] Simvastatin 10 mg PO DAILY tab 10/14/17 [Last Taken Unknown] Tamsulosin HCl 0.4 mg PO DAILY cap 10/14/17 [Last Taken Unknown] Ascorbic Acid [Vitamin C] 500 mg PO DAILY #30 tab 12/26/17 [Last Taken Unknown] Furosemide [Lasix] 40 mg PO DAILY #30 tablet 12/26/17 [Last Taken Unknown] Ibuprofen [Motrin] 800 mg PO Q8H PRN #30 tablet 12/26/17 [Last Taken Unknown] Metformin HCl [Glucophage Ir] 500 mg PO BID #60 tablet 12/26/17 [Last Taken Unknown] Zinc Sulfate 220 mg PO BID #30 capsule 12/26/17 [Last Taken Unknown] Discharge Plan - Discharge Instructions Activity at Discharge: Increase Activity as Tolerated Diet at Discharge: Advance to Usual Diet Instructions: MRSA (Methicillin-Resistant Staphylococcus Aureus) (DC) Additional Instructions: - [facility] will see you at home starting on Thursday 12/28. They will be doing dressing changes every other day. - Appointment with your new primary care, Dr. Catalan, at [facility] on Wednesday 01/03 at 2PM Quality Measures - Quality Measures Quality Measures: Advance Directives, Documentation of Current Medications in Medical Record, Elder Maltreatment Screen and Follow-Up Plan, Heart Failure, Screening for High Blood Pressure and F/U Documented - Current Medications Quality Measure: Measure #130: Documentation of Current Medications Documentation of Current Medications: <Current Medications Documented/Reviewed> [G8427] - Blood Pressure Screening Quality Measure: Screening for High Blood Pressure and Follow-Up Documented Does Patient Have Any of the Following: Active Dx of HTN Blood Pressure Classification: Hypertensive Reading Systolic Measurement: 143 Diastolic Measurement: 78 Screening for High Blood Pressure: Patient Exclusion, Hx of HTN [G9744] - Heart Failure (EMERALD/ARB Therapy) Quality Measure: Heart Failure Left Ventricular Systolic Function: Unknown EMERALD Inhibitor or ARB Therapy for LVSD: Not Eligible - Heart Failure (Beta-guilherme Therapy) Quality Measure: Heart Failure Left Ventricular Systolic Function: Unknown Beta-Guilherme Therapy for LVEF < 40%: Not Eligible - Advance Directives Quality Measure: Measure #47: Care Plan Advance Directives Established: No Advance Directives Information Provided To Patient: No Advance Directives on File: No Living Will: No Power of Retail Product Demo Specialist: No Advance Care Planning: Not Discussed or Documented [[id number]] - Elder Abuse Suspicion Index Screening: Elder Abuse Suspicion Index Screening Rely on people for bathing, dressing, shopping, banking, etc: No Prevented from getting food, clothes, medication, etc: No Made to feel shamed or threatened by someone: No Forced to sign papers or use money against will: No Feel afraid, touched in ways not wanted or hurt physically: No Poor eye contact, withdrawn, malnourished, cuts or bruises: No Screening Result: Negative result EASI Reference Information: Guicho CEJA, Sanjiv Siddiqui, Stacy Chopra, Zulma Parker.Development and validation of a tool to assist physicians identification of elder abuse: The Elder Abuse Suspicion Index (EASI ). Journal of Elder Abuse and Neglect, 2008; 20 (3): 276-300. - Elder Maltreatment Screen Quality Measures: Elder Maltreatment Screen and Follow-Up Plan Elder Maltreatment Screen: <Negative, No Follow-Up Plan Required> [G8734]
[2017-12-26] MEDS: ZINC OXIDE 28.35 GM TUBE TOP SCH (13:45)
[2017-12-26] MEDS: MUPIROCIN OINT 22 GM TUBE TOP SCH (13:45)
[2017-12-26] MEDS: NYSTATIN 15 GM TUBE TOP SCH (13:45)
[2017-12-26] MEDS: CLOTRIMAZOLE 1% 30 GM CREAM TP SCH (13:45)
== END 2017-12-26 14:30 | disposition home health service (06) | DRG 948 ==
LOC: MEDSURG 14:25 → UNDOADMIN 14:25 → MEDSURG 14:45
PROVIDERS: ADMIT Internal Medicine; ATTEND Internal Medicine
DX: R53.81 Other malaise (principal); L97.229 Non-pressure chronic ulcer of left calf with unspecified severity; L97.318 Non-pressure chronic ulcer of right ankle with other specified severity; E11.622 Type 2 diabetes mellitus with other skin ulcer; N18.9 Chronic kidney disease, unspecified; E78.5 Hyperlipidemia, unspecified; D69.6 Thrombocytopenia, unspecified; E80.6 Other disorders of bilirubin metabolism
CPT/HCPCS: 36416; 71046; 80048; 80053; 82247; 82248; 82948; 83010; 84443; 85025; 85027; 87493; 90686; 93306; 93925; 99232; 99233; 99306; 99308; 99309; G0103; J1650